=== PATIENT | female | born 1945 | race Hispanic/Latino ===

== ENCOUNTER 2018-06-08 14:18 | Inpatient (IN) | payer MEDICARE ==
--- NOTE | 2018-06-08 14:24 | Emergency Department Report ---
Blank Doc - Documentation Documentation: 73 y o female presents with an hour ago onset of left arm weakness, denies inj ury, trauma, FAST- positive for arm drift LAbs ordered
--- NOTE | 2018-06-08 14:44 | Cat Scan Report ---
CT HEAD WITHOUT CONTRAST: HISTORY: Stroke symptoms. TECHNIQUE: Sequential 2.5mm CT images. COMPARISON: none. FINDINGS: Cerebral Parenchyma: There is a 1.8 x 1.0 cm ovoid area of diminished attenuation in the right anterior basal ganglia on image 31, series 2. This could represent a subacute focus of ischemia. Minimal nonspecific chronic white matter changes are identified. The remaining brain parenchyma is within normal limits. Cerebellum: Within normal limits. Brainstem: Within normal limits. Ventricles: Normal. Sella: Normal. Extra-axial spaces: Normal. Basal Cisterns: Normal. Intracranial Hemorrhage: None. Midline Shift: None. Calvarium: Normal. Sinuses: Normal. Mastoid Air Cells: Normal. Visualized Orbits: Normal. IMPRESSION: 1.8 x 1.0 cm area of diminished attenuation in the right anterior basal ganglia concerning for subacute ischemia. No evidence for hemorrhage or mass effect. Minimal nonspecific chronic white matter changes. These findings were discussed with Dr. Dove in the emergency department at 1439 hrs.
--- NOTE | 2018-06-08 14:44 | Emergency Department Report ---
ED Neuro Deficit HPI - General Chief Complaint: Neuro Symptoms/Deficit Stated Complaint: SLURRED SPEECH/NUMBNESS IN LFT HAND Time Seen by Provider: 06/08/18 14:20 Source: patient Mode of arrival: Ambulatory Limitations: No Limitations - History of Present Illness Initial Comments: 73-year-old female with history of hypertension, COPD, past history of breast cancer presents to ED with possible stroke. Daughter states she spoke with the patient had 10 AM and patient seemed to have slurred speech, although patient denies this. Daughter went to the patient's home, states speech has now improved, however patient had left hand weakness and was unable to production sorter anything with her left hand. Left hand weakness began at approximately 1:30 PM, and has now resolved. Patient denies headache, numbness or tingling. -: This morning Location: speech, left arm Presenting Symptoms: Present: Weak/Paralyzed One Side, Unable to Speak Clearly History of same: No Place: home Severity: mild Associated Symptoms: cough. denies: confusion, chest pain, fever/chills, headaches Treatments Prior to Arrival: none - Related Data Allergies/Adverse Reactions: Allergies Allergy/AdvReac Type Severity Reaction Status Date / Time No Known Allergies Allergy Unverified 06/08/18 14:24 ED Review of Systems ROS: Stated complaint: SLURRED SPEECH/NUMBNESS IN LFT HAND Other details as noted in HPI Comment: All other systems reviewed and negative Neurological: weakness. denies: headache ED Neuro Physical Exam - General Limitations: No Limitations General appearance: alert, in no apparent distress Suspected Stroke: Yes - Head Head exam: Present: atraumatic, normocephalic - Eye Eye exam: Present: normal appearance, PERRL, EOMI - ENT ENT exam: Present: mucous membranes moist - Neck Neck exam: Present: normal inspection - Respiratory Respiratory exam: Present: normal lung sounds bilaterally. Absent: respiratory distress - Cardiovascular Cardiovascular Exam: Present: regular rate, normal rhythm - GI/Abdominal GI/Abdominal exam: Present: soft. Absent: distended, tenderness - Extremities Exam Extremities exam: Present: normal inspection - Neurological Exam Neurological exam: Present: alert, oriented X3, CN II-XII intact. Absent: motor sensory deficit - NIHSS Assessment Interval: Baseline 1a. Level of Consciousness: alert/keenly responsive 1b. LOC Questions: answers both correctly 1c. LOC Commands: performs tasks correctly 2. Best Gaze: normal 3. Visual: no visual loss 4. Facial Palsy: normal symmetrical movement 5b. Motor Arm Right: no drift 5a. Motor Arm Left: no drift 6a. Motor Leg Left: no drift 6b. Motor Leg Right: no drift 7. Limb Ataxia: absent 8. Sensory: normal 9. Best Language: no aphasia 10. Dysarthria: normal 11. Extinction/Inattention: no abnormality Total Score: 0 Stroke Severity: No Stroke Symptoms - Psychiatric Psychiatric exam: Present: normal affect, normal mood - Skin Skin exam: Present: warm, dry, intact, normal color - Lab Data Result diagrams: 06/08/18 14:35 Lab Results 06/08/18 06/08/18 06/08/18 Range/Units 14:35 14:35 14:35 WBC 7.7 (4.5-11.0) K/mm3 RBC 5.10 H (3.65-5.03) M/mm3 Hgb 15.1 H (10.1-14.3) gm/dl Hct 45.6 H (30.3-42.9) % MCV 90 (79-97) fl MCH 30 (28-32) pg MCHC 33 (30-34) % RDW 14.1 (13.2-15.2) % Plt Count 252 (140-440) K/mm3 Lymph % (Auto) 32.5 (13.4-35.0) % [place] % (Auto) 9.3 H (0.0-7.3) % Eos % (Auto) 3.7 (0.0-4.3) % Baso % (Auto) 1.1 (0.0-1.8) % Lymph # 2.5 (1.2-5.4) K/mm3 [place] # 0.7 (0.0-0.8) K/mm3 Eos # 0.3 (0.0-0.4) K/mm3 Baso # 0.1 (0.0-0.1) K/mm3 Seg Neutrophils % 53.4 (40.0-70.0) % Seg Neutrophils # 4.1 (1.8-7.7) K/mm3 PT 12.7 (12.2-14.9) Sec. INR 0.90 (0.87-1.13) APTT 28.9 (24.2-36.6) Sec. Thrombin Time 16.1 (15.1-19.6) Sec. Total Creatine Kinase 51 (30-135) units/L CK-MB (CK-2) 3.1 (0.0-4.0) ng/mL CK-MB (CK-2) Rel Index 6.0 H (0-4) Troponin T < 0.010 (0.00-0.029) ng/mL - EKG Data -: EKG Interpreted by Me EKG shows normal: sinus rhythm, intervals, ST-T waves Rate: normal Interpretation: no acute changes, other (RBBB) - Radiology Data Radiology results: report reviewed - Medical Decision Making 73-year-old female with slurred speech and left hand weakness that began earlier today. Those symptoms have now resolved. NIHSS score of 0, pt not a candidate for tPA. CT shows possible right basal ganglia subacute infarct. Remainder of workup unremarkable. Will admit to hospitalist, Dr Diaz, for further evaluation. - Differential Diagnosis TIA, CVA, brain mass - Thrombolytic Inclusion/Exclusion Thrombolytic Contraindications: Rapidily Improving s/s Critical Care Time: Yes Critical care time in (mins) excluding proc time.: 35 Critical care attestation.: If time is entered above; I have spent that time in minutes in the direct care of this critically ill patient, excluding procedure time. Critical Care Time: 35 minutes ED Disposition Clinical Impression: Stroke Qualifiers: CVA mechanism: unspecified Qualified Code(s): I63.9 - Cerebral infarction, unspecified Disposition: DC-09 OP ADMIT IP TO THIS HOSP Is pt being admited?: Yes Condition: Stable Additional Instructions: [facility] Consult Services Impression: Stroke Differential Diagnosis: 1. Cardioembolic stroke 2. Small vessel disease/lacune 3. Thromboembolic, [id number] mechanism 4. Hypercoagulable state-related infarct 5. Thrombotic mechanism, large artery disease 6. Transient ischemic attack Comments: Last known well: 2129 Door time:1418 [employer] contacted: 1423 [employer] at bedside: 1438 NIHSS assessment time:1442 Needle time:TPA not considered since she is out of the TPA window Thrombectomy not considered since large proximal intracranial vessel occlusion is not suspected Discussion: Our recommendations are outlined below. Recommendations: ASA, IV fluids and permissive hypertension (Keep BP < 220/110) Neurochecks PT/OT/ST DVT prophylaxis Follow up with Neurology for further testing/evaluation Medical Decision Making: - Extensive number of diagnosis or management options are considered above. - Extensive amount of complex data reviewed. - High risk of complication and/or morbidity or mortality are associated with differential diagnostic considerations above. - There may be uncertain outcome and increased probability of prolonged functional impairment or high probability of severe prolonged functional impairment associated with some of these differential diagnosis. Medical Data Reviewed: 1.Data reviewed include clinical labs, radiology, Medical Tests; 2.Tests results discussed w/performing or interpreting physician; 3.Obtaining/reviewing old medical records; 4.Obtaining case history from another source; 5.Independent review of image, tracing or specimen. Time of Disposition: 15:13
--- NOTE | 2018-06-08 14:49 | Emergency Department Report ---
ED Neuro Deficit HPI - General Chief Complaint: Neuro Symptoms/Deficit Stated Complaint: SLURRED SPEECH/NUMBNESS IN LFT HAND Time Seen by Provider: 06/08/18 14:20 Source: patient Mode of arrival: Ambulatory Limitations: No Limitations - History of Present Illness Initial Comments: 73 y/o woman with h/o HTN and COPD who presents with slurred speech and left hand weakness. Last known well at 0 as per daughter at bedside. CT head reviewed and case discsussed with ED staff. Now NIHSS 0 Location: speech, left arm History of same: No Place: home Severity: mild - Related Data Allergies/Adverse Reactions: Allergies Allergy/AdvReac Type Severity Reaction Status Date / Time No Known Allergies Allergy Unverified 06/08/18 14:24 ED Review of Systems ROS: Stated complaint: SLURRED SPEECH/NUMBNESS IN LFT HAND Other details as noted in HPI ED Neuro Physical Exam - General Limitations: No Limitations Suspected Stroke: Yes - Neurological Exam Neurological exam: Present: alert - NIHSS Assessment Interval: Baseline 1a. Level of Consciousness: alert/keenly responsive 1b. LOC Questions: answers both correctly 1c. LOC Commands: performs tasks correctly 2. Best Gaze: normal 3. Visual: no visual loss 4. Facial Palsy: normal symmetrical movement 5b. Motor Arm Right: no drift 5a. Motor Arm Left: no drift 6a. Motor Leg Left: no drift 6b. Motor Leg Right: no drift 7. Limb Ataxia: absent 8. Sensory: normal 9. Best Language: no aphasia 10. Dysarthria: normal 11. Extinction/Inattention: no abnormality Total Score: 0 Stroke Severity: No Stroke Symptoms Critical care attestation.: If time is entered above; I have spent that time in minutes in the direct care of this critically ill patient, excluding procedure time. ED Disposition Clinical Impression: TIA (transient ischemic attack) Stroke Qualifiers: CVA mechanism: unspecified Qualified Code(s): I63.9 - Cerebral infarction, unspecified Disposition: DC-09 OP ADMIT IP TO THIS HOSP Is pt being admited?: Yes Does the pt Need Aspirin: Yes Condition: Stable Additional Instructions: [facility] TeleNeurology Consult Services Impression: Stroke Differential Diagnosis: 1. Cardioembolic stroke 2. Small vessel disease/lacune 3. Thromboembolic, [id number] mechanism 4. Hypercoagulable state-related infarct 5. Thrombotic mechanism, large artery disease 6. Transient ischemic attack Comments: Last known well: 2129 Door time:1418 [employer] contacted: 1423 [facility] at bedside: 1438 NIHSS assessment time:1442 Needle time:TPA not considered since she is out of the TPA window Thrombectomy not considered since large proximal intracranial vessel occlusion is not suspected Discussion: Our recommendations are outlined below. Recommendations: ASA, IV fluids and permissive hypertension (Keep BP < 220/110) Neurochecks PT/OT/ST DVT prophylaxis Follow up with Neurology for further testing/evaluation Medical Decision Making: - Extensive number of diagnosis or management options are considered above. - Extensive amount of complex data reviewed. - High risk of complication and/or morbidity or mortality are associated with differential diagnostic considerations above. - There may be uncertain outcome and increased probability of prolonged functional impairment or high probability of severe prolonged functional impairment associated with some of these differential diagnosis. Medical Data Reviewed: 1.Data reviewed include clinical labs, radiology, Medical Tests; 2.Tests results discussed w/performing or interpreting physician; 3.Obtaining/reviewing old medical records; 4.Obtaining case history from another source; 5.Independent review of image, tracing or specimen.
[2018-06-08 14:51] LABS: Basophils # (Auto) 0.1 K/mm3 (0.0-0.1); Basophils % (Auto) 1.1 % (0.0-1.8); Eosinophils # (Auto) 0.3 K/mm3 (0.0-0.4); Eosinophils % (Auto) 3.7 % (0.0-4.3); Hematocrit 45.6 % (30.3-42.9); Hemoglobin 15.1 gm/dl (10.1-14.3); Lymphocytes # (Auto) 2.5 K/mm3 (1.2-5.4); Lymphocytes % (Auto) 32.5 % (13.4-35.0); Mean Corpuscular HGB Conc 33 % (30-34); Mean Corpuscular Volume 90 fl (79-97); Monocytes # (Auto) 0.7 K/mm3 (0.0-0.8); Monocytes % (Auto) 9.3 % (0.0-7.3); Platelet Count 252 K/mm3 (140-440); Red Cell Distribution Width 14.1 % (13.2-15.2)
[2018-06-08 15:01] LABS: INR 0.9 (0.87-1.13)
[2018-06-08 15:02] LABS: Partial Thromboplastin Time 28.9 Sec. (24.2-36.6); Thrombin Time 16.1 Sec. (15.1-19.6)
[2018-06-08] MEDS ORDERED: ASPIRIN PO ONE (15:11)
[2018-06-08] MEDS ORDERED: TYLENOL PO PRN (15:21)
[2018-06-08] MEDS ORDERED: REGLAN PO PRN (15:21)
[2018-06-08] MEDS ORDERED: MILK OF MAGNESIA PO PRN (15:21)
[2018-06-08] MEDS ORDERED: DULCOLAX PR PRN (15:21)
[2018-06-08] MEDS ORDERED: ZOFRAN IV PRN (15:21)
[2018-06-08] MEDS ORDERED: SODIUM CHLORIDE FLUSH SYRINGE 10 ML IV PRN (15:21)
[2018-06-08] MEDS ORDERED: PHENERGAN PR PRN (15:21)
--- NOTE | 2018-06-08 15:21 | History and Physical Report ---
History of Present Illness Chief complaint: I was feeling weak History of present illness: 73 YO Female with HTN, COPD, BrCa presents to ED for evaluation. Pt is resting in bed. Pt daughter provides history. As per daughter, the patient was found to have slurred speech around 1000hrs which was attributed to medication that the patient had taken earlier in the day. However; the patient was found to have Left hand weakness around 1330hrs, and was unable to hold objects in her left hand. Pt transported to [facility] via private vehicle. Pt seen and evaluated in ED and found to have symptoms consistent with CVA. A code stroke was called. Pt admitted to telemetry and initiated on CVA protocol. Teleneurology consulted, but patient deemed not a candidate for TPA. Pt denies fever, chills, vertigo, chest pain, skin rash, syncope, productive cough, heachche, or recent ill contacts. No prior admission for review. No medication listed for reconciliation at time of admission. Neurology consulted in ED. PCP: Dr. Dandre Church Past History Past Medical History: cancer, COPD, hypertension Past Surgical History: No surgical history, Other (reviewed) Social history: , lives with family Family history: hypertension Medications and Allergies Allergies Allergy/AdvReac Type Severity Reaction Status Date / Time No Known Allergies Allergy Unverified 06/08/18 14:24 Home Medications Medication Instructions Recorded Confirmed Last Taken Type ALPRAZolam [Xanax TAB] 1 mg PO TID PRN 06/08/18 06/08/18 Unknown History Triamter/Hctz 37.5-25 mg 1 tab PO QDAY 06/08/18 06/08/18 Unknown History [Maxzide-25] Zolpidem [Ambien] 10 mg PO QHS 06/08/18 06/08/18 Unknown History Review of Systems Constitutional: no weight loss, no fever, no sweats, no night sweats Ears, nose, mouth and throat: no ear pain, no ear discharge, no decreased hearing, no nasal congestion Breasts: no change in shape, no swelling, no mass Cardiovascular: no chest pain, no palpitations, no edema, no lightheadedness, no dyspnea on exertion Respiratory: no cough, no cough with sputum, no excessive sputum, no hemoptysis, no shortness of breath Gastrointestinal: no abdominal pain, no nausea, no vomiting, no diarrhea, no constipation Genitourinary Female: no pelvic pain, no flank pain, no menorrhagia, no dysuria, no urinary frequency Rectal: no pain, no incontinence, no bleeding Musculoskeletal: arm numbness/tingling, no neck stiffness, no neck pain, no shooting arm pain Integumentary: no rash, no redness, no wounds, no boils Neurological: transient paralysis, weakness, numbness, change in speech, motor disturbance, no head injury Psychiatric: no anxiety, no memory loss, no change in sleep habits, no sleep disturbances Endocrine: no cold intolerance, no heat intolerance, no polyphagia, no excessive thirst, no polydipsia Hematologic/Lymphatic: no easy bruising, no easy bleeding, no lymphadenopathy Allergic/Immunologic: no urticaria, no allergic rhinitis, no wheezing, no persistent infections Exam - Constitutional General appearance: Present: no acute distress, well-nourished - EENT Eyes: Present: PERRL ENT: hearing intact, clear oral mucosa - Neck Neck: Present: supple, normal ROM - Respiratory Respiratory effort: normal Respiratory: bilateral: CTA - Cardiovascular Heart Sounds: Present: S1 & S2. Absent: rub, click - Extremities Extremities: pulses symmetrical, No edema Peripheral Pulses: within normal limits - Abdominal General gastrointestinal: Present: soft, non-tender, non-distended, normal bowel sounds Female genitourinary: Present: normal - Integumentary Integumentary: Present: clear, warm, dry - Musculoskeletal Musculoskeletal: gait normal, strength equal bilaterally - Psychiatric Psychiatric: appropriate mood/affect, intact judgment & insight - Neurologic Neurologic: CNII-XII intact, moves all extremities Results - Labs CBC & Chem 7: 06/08/18 14:35 Labs: Abnormal lab results 06/08/18 Range/Units 14:35 RBC 5.10 H (3.65-5.03) M/mm3 Hgb 15.1 H (10.1-14.3) gm/dl Hct 45.6 H (30.3-42.9) % [place] % (Auto) 9.3 H (0.0-7.3) % Assessment and Plan - Patient Problems (1) CVA (cerebral vascular accident) Current Visit: Yes Status: Acute Qualifiers: Precerebral and cerebral artery: middle cerebral artery Laterality of affected vessel: right Plan to address problem: CVA Protocol: Admit to telemetry, CT Head, MRI Brain, MRA Brain, Echo, Carotid Doppler, PT/OT/Speech therapy, Antiplatelet therapy, lipid panel, statin therapy, Neurology consulted in ED (2) HTN (hypertension) Current Visit: Yes Status: Acute Qualifiers: Hypertension type: essential hypertension Qualified Code(s): I10 - Essential (primary) hypertension Plan to address problem: Monitor bp q shift, continue medical management, permissive hypertension overnight (3) COPD (chronic obstructive pulmonary disease) Current Visit: Yes Status: Acute Qualifiers: Emphysema type: unspecified Qualified Code(s): J43.9 - Emphysema, unspecified Plan to address problem: Supplemental oxygen, supportive care, incentive spirometry. (4) Breast cancer Current Visit: Yes Status: Acute Qualifiers: Laterality: unspecified laterality Plan to address problem: Currently in remission, supportive care, outpatient oncology F/U care. (5) DVT prophylaxis Current Visit: Yes Status: Acute Plan to address problem: SCD to BLE while in bed, prophylactic lovenox
[2018-06-08 15:25] LABS: Creatine Kinase MB 3.1 ng/mL (0.0-4.0)
--- NOTE | 2018-06-08 16:41 | Vascular Lab Report ---
PROCEDURE: VL CAROTID DUPLEX BILAT TECHNIQUE: Ultrasound of the bilateral carotid arteries. Reported ICA Stenosis % per the NASCET crite flip. HISTORY: stroke COMPARISONS: None FINDINGS: PLAQUE DISTRIBUTION: There are heterogeneous shadowing calcified plaques present bilaterally. Finding s are most significant in the left external carotid artery and at the left carotid bifurcation. On the right, there is focal moderate plaque formation in the right proximal internal carotid artery bifurcation VELOCITIES: RIGHT ICA peak systolic velocity (cm/sec): 115 ICA end diastolic velocity (cm/sec): 31 CCA peak systolic velocity (cm/sec): 90 ECA peak systolic velocity (cm/sec): 87 ICA/CCA systolic velocity ratio (cm/sec): 1.28 Right vertebral: Antegrade ICA STENOSIS ESTIMATION: < 50 % LEFT ICA peak systolic velocity (cm/sec): 333 ICA end diastolic velocity (cm/sec): 100 CCA peak systolic velocity (cm/sec): 72 ECA peak systolic velocity (cm/sec): 355 ICA/CCA systolic velocity ratio (cm/sec): 4.62 Left vertebral: Antegrade ICA STENOSIS ESTIMATION: 80-99 % IMPRESSION: Clinically significant stenosis identified in the left carotid system. ICA Stenosis % per the NASCET criteria is < 50 % on the right and 80-99 % on the left. This document is electronically signed by Latha Gutierrez MD., June 08 2018 04:39:47 PM ET
[2018-06-08] MEDS ORDERED: ASPIRIN ONE (17:50)
[2018-06-09] MEDS ORDERED: XANAX PO PRN (04:15)
[2018-06-09] MEDS ORDERED: ASPIRIN PO SCH (10:00)
[2018-06-09] MEDS ORDERED: MAXZIDE-25 PO SCH (10:00)
[2018-06-09 10:36] LABS: BUN/Creatinine Ratio 34; Blood Urea Nitrogen 17 mg/dL (7-17); Calcium 8.9 mg/dL (8.4-10.2); Hemolysis Index 13
[2018-06-09 10:40] LABS: Chol/HDL Ratio 5.02 %
--- NOTE | 2018-06-09 14:11 | Magnetic Resonance Report ---
PROCEDURE: MR BRAIN WO CON TECHNIQUE: Magnetic resonance imaging of the brain was performed without contrast material. COMPARISONS: None currently available. FINDINGS: Punctate restricted diffusion in the right frontoparietal lobe on series 3:24. T2/FLAIR hyperintensities in the periventricular and subcortical white matter are nonspecific. Differ ential diagnosis includes migraines, microvascular ischemic disease, demyelinating process, encephali tis/encephalopathy, and trauma. Midline structures are unremarkable. There is no tonsillar ectopy. Age appropriate hairston-white matter differentiation is noted. There is no hydrocephalus. There is no mass. There is no hemorrhage. There is no midline shift. The CP angles are grossly noted. Major flow voids are present. Paranasal sinuses are unremarkable. Globes are intact. Calvarial signal characteristics are grossly unremarkable. Extracranial soft tissues are intact. IMPRESSION: * Punctate acute infarct in the right frontal parietal lobe. * Chronic ischemic disease. * 06/09/2018 at 1108 PT: I, Scot Hassan MD, discussed the findings over the phone with Imani Corona RN. This document is electronically signed by Scot Hassan MD., June 09 2018 02:08:45 PM ET
--- NOTE | 2018-06-09 14:29 | Progress Note ---
Hospitalist Physical - Constitutional Vitals: Temp Pulse Resp BP Pulse Ox 97.6 F 89 18 131/71 95 06/09/18 08:16 06/09/18 05:27 06/09/18 08:16 06/09/18 08:16 06/09/18 05:27 General appearance: Present: no acute distress, well-nourished Results - Labs CBC & Chem 7: 06/08/18 14:35 06/09/18 10:07 Labs: Laboratory Last Values WBC 7.7 K/mm3 (4.5-11.0) 06/08/18 14:35 RBC 5.10 M/mm3 (3.65-5.03) H 06/08/18 14:35 Hgb 15.1 gm/dl (10.1-14.3) H 06/08/18 14:35 Hct 45.6 % (30.3-42.9) H 06/08/18 14:35 MCV 90 fl (79-97) 06/08/18 14:35 MCH 30 pg (28-32) 06/08/18 14:35 MCHC 33 % (30-34) 06/08/18 14:35 RDW 14.1 % (13.2-15.2) 06/08/18 14:35 Plt Count 252 K/mm3 (140-440) 06/08/18 14:35 Lymph % (Auto) 32.5 % (13.4-35.0) 06/08/18 14:35 [place] % (Auto) 9.3 % (0.0-7.3) H 06/08/18 14:35 Eos % (Auto) 3.7 % (0.0-4.3) 06/08/18 14:35 Baso % (Auto) 1.1 % (0.0-1.8) 06/08/18 14:35 Lymph # 2.5 K/mm3 (1.2-5.4) 06/08/18 14:35 [place] # 0.7 K/mm3 (0.0-0.8) 06/08/18 14:35 Eos # 0.3 K/mm3 (0.0-0.4) 06/08/18 14:35 Baso # 0.1 K/mm3 (0.0-0.1) 06/08/18 14:35 Seg Neutrophils % 53.4 % (40.0-70.0) 06/08/18 14:35 Seg Neutrophils # 4.1 K/mm3 (1.8-7.7) 06/08/18 14:35 PT 12.7 Sec. (12.2-14.9) 06/08/18 14:35 INR 0.90 (0.87-1.13) 06/08/18 14:35 APTT 28.9 Sec. (24.2-36.6) 06/08/18 14:35 Thrombin Time 16.1 Sec. (15.1-19.6) 06/08/18 14:35 Sodium 141 mmol/L (137-145) 06/09/18 10:07 Potassium 3.8 mmol/L (3.6-5.0) 06/09/18 10:07 Chloride 99.2 mmol/L (98-107) 06/09/18 10:07 Carbon Dioxide 30 mmol/L (22-30) 06/09/18 10:07 Anion Gap 16 mmol/L 06/09/18 10:07 BUN 17 mg/dL (7-17) 06/09/18 10:07 Creatinine 0.5 mg/dL (0.7-1.2) L 06/09/18 10:07 Estimated GFR > 60 ml/min 06/09/18 10:07 BUN/Creatinine Ratio 34 % 06/09/18 10:07 Glucose 101 mg/dL (65-100) H 06/09/18 10:07 Calcium 8.9 mg/dL (8.4-10.2) 06/09/18 10:07 Total Creatine Kinase 51 units/L (30-135) 06/08/18 14:35 CK-MB (CK-2) 3.1 ng/mL (0.0-4.0) 06/08/18 14:35 CK-MB (CK-2) Rel Index 6.0 (0-4) H 06/08/18 14:35 Troponin T < 0.010 ng/mL (0.00-0.029) 06/08/18 14:35 Triglycerides 168 mg/dL (2-149) H 06/09/18 10:07 Cholesterol 221 mg/dL (50-199) H 06/09/18 10:07 LDL Cholesterol Direct 171 mg/dL (50-130) H 06/09/18 10:07 HDL Cholesterol 44 mg/dL (40-59) 06/09/18 10:07 Cholesterol/HDL Ratio 5.02 % 06/09/18 10:07 Active Medications - Current Medications Current Medications: Generic Name Dose Route Start Last Admin Trade Name Freq PRN Reason Stop Dose Admin Acetaminophen 650 mg 06/08/18 15:21 Tylenol PO Q4H PRN Pain, Mild (1-3) Alprazolam 1 mg 06/09/18 04:15 Xanax PO TID PRN Anxiety Aspirin 325 mg 06/09/18 10:00 06/09/18 11:01 Aspirin PO 325 mg QDAY ALAN Administration Atorvastatin Calcium 40 mg 06/08/18 22:00 06/08/18 22:51 Lipitor PO 40 mg QHS [facility] Administration Bisacodyl 10 mg 06/08/18 15:21 Dulcolax CO QDAY PRN Constipation Enoxaparin Sodium 40 mg 06/09/18 22:00 Lovenox SUB-Q QDAY@2200 [facility] Magnesium Hydroxide 30 ml 06/08/18 15:21 Milk Of Magnesia PO Q4H PRN Constipation Metoclopramide HCl 10 mg 06/08/18 15:21 Reglan PO Q6H PRN Nausea And Vomiting Ondansetron HCl 4 mg 06/08/18 15:21 Zofran IV Q8H PRN Nausea And Vomiting Promethazine HCl 25 mg 06/08/18 15:21 Phenergan CO Q6H PRN Nausea And Vomiting Sodium Chloride 10 ml 06/08/18 15:21 Sodium Chloride Flush Syringe 10 Ml IV PRN PRN LINE FLUSH Triamterene/HCTZ 1 each 06/09/18 10:00 06/09/18 11:01 Maxzide-25 PO 1 each QDAY ALAN Administration Zolpidem Tartrate 10 mg 06/09/18 22:00 Ambien PO QHS [facility]
--- NOTE | 2018-06-09 18:31 | Discharge Summary ---
Providers - Providers Date of Admission: 06/08/18 15:21 Date of discharge: 06/09/18 Attending physician: TYREE MELO 06/08/18 15:21 Occupational Therapy Evaluate and Treat [CONS] Routine Comment: Reason For Exam: Neuro deficits Physical Therapy Evaluation and Treat [CONS] Routine Comment: Reason For Exam: Neuro deficits 06/08/18 15:24 Speech Therapy Evaluation and Treat [CONS] Routine Reason For Exam: swallow eval 06/08/18 15:26 Consult to Physician [CONS] Routine Comment: Consulting Provider: ELISE KAUR Physician Instructions: Reason For Exam: cva Primary care physician: RC HUBER Hospitalization Condition: Fair Hospital course: Patient is 73 yo with hypertension, tobacco use , COPD and history of breast cancer. She presented to Ed with slurred speech, left sided weakness. She was seen and evaluated in ED and found to have symptoms consistent with acute stroke. A code stroke was called. CT head revealed right basal ganglia ischemic stroke. Pt admitted to telemetry and initiated on CVA protocol. Teleneurology consulted, but patient deemed not a candidate for TPA. She was given Aspirin adm itted. MRI also showed acute infarct right frontal and parietal lobe. left sided weakness improved, she was seen by Physical therapy and discharged home on 06/09/18. Disposition: DC-01 TO HOME OR SELFCARE - Discharge Diagnoses (1) COPD (chronic obstructive pulmonary disease) Status: Acute Qualifiers: Emphysema type: unspecified Qualified Code(s): J43.9 - Emphysema, unspecified (2) CVA (cerebral vascular accident) Status: Acute Qualifiers: Precerebral and cerebral artery: middle cerebral artery Laterality of affected vessel: right (3) HTN (hypertension) Status: Acute Qualifiers: Hypertension type: essential hypertension Qualified Code(s): I10 - Essential (primary) hypertension (4) Hypertension Status: Acute Core Measure Documentation - Palliative Care Palliative Care/ Comfort Measures: Not Applicable - Core Measures Any of the following diagnoses?: stroke - Stroke Discharge Requirements Statin for LDL = or >70 mg/dl on DC: Yes Anticoag for atrial fib/atrial flutter: Not Applicable Antithrombotic for ischemic stroke: Yes Exam - Constitutional Vitals: Temp Pulse Resp BP Pulse Ox 98.0 F 102 H 18 122/55 96 06/09/18 16:20 06/09/18 12:00 06/09/18 16:20 06/09/18 16:20 06/09/18 10:00 Plan Activity: advance as tolerated Diet: low fat, low cholesterol, low salt Additional Instructions: 1.Folow up with Dr. Huber in 3-5 days Follow up with: RC HUBER MD [Primary Care Provider] - 7 Days Prescriptions: Aspirin [Aspirin TAB] 325 mg PO QDAY #30 tablet AtorvaSTATin [Lipitor] 40 mg PO QHS #30 tablet
[2018-06-09 20:02] VITALS: BP 146/65
[2018-06-09] MEDS ORDERED: LOVENOX SUB-Q SCH (22:00)
[2018-06-09] MEDS ORDERED: AMBIEN PO SCH (22:00)
--- NOTE | 2018-06-15 16:49 | Magnetic Resonance Report ---
PROCEDURE: MRA of the brain TECHNIQUE: Axial 3-D [id number] MR angiography of the [place] and brain was performed. The source images were reconstructed in various views using maximum intensity projection. HISTORY: stroke COMPARISONS: None . FINDINGS: Visualized vertebral arteries showed dominant left vertebral artery, normal variant. Visualized internal carotid arteries appear widely patent. Carotid siphons are patent. The A1 segment s and anterior cerebral arteries as well as the right and left middle cerebral arteries appear widely patent. No high-grade stenosis or occlusion is visualized. No changes are seen to suggest an aneurys m or vascular malformation. IMPRESSION: Anterior and the posterior circulation appear intact without high-grade stenosis or occlusion. This document is electronically signed by Marquis Gregory MD., June 15 2018 04:47:07 PM ET
== END 2018-06-09 20:11 | disposition home or self-care (01) | DRG 66 ==
LOC: ED 14:18 → 4A 15:21
PROVIDERS: ADMIT Internal Medicine; ATTEND Internal Medicine
DX: I63.9 Cerebral infarction, unspecified (principal); G83.24 Monoplegia of upper limb affecting left nondominant side; I10 Essential (primary) hypertension; J44.9 Chronic obstructive pulmonary disease, unspecified; Z85.3 Personal history of malignant neoplasm of breast; Z82.49 Family history of ischemic heart disease and other diseases of the circulatory system; Z79.01 Long term (current) use of anticoagulants
CPT/HCPCS: 36415; 70450; 70544; 70551; 80048; 80061; 82550; 82553; 84484; 85025; 85610; 85670; 85730; 93005; 93010; 93306; 93880; G0378; A9270-GY

== ENCOUNTER 2018-06-12 21:34 | Inpatient (IN) | payer MEDICARE ==
--- NOTE | 2018-06-12 23:24 | Cat Scan Report ---
PROCEDURE: CT HEAD/BRAIN WO CON TECHNIQUE: Computerized tomography of the head was performed without contrast material. CT DOSE LENGTH PRODUCT: 805.4 mGycm HISTORY: left arm paresthesias, recent CVA COMPARISONS: None . FINDINGS: Skull and scalp: Normal . Paranasal sinuses: Normal . Ventricles and subarachnoid spaces: Normal . Cerebrum: Nonspecific finding of hypodensity is noted involving anterior limb right internal capsule as seen on the prior study without interval change most likely representing chronic ischemic changes. . Cerebellum and brainstem: No evidence of hemorrhage, acute infarction or mass . Vasculature: Normal . Other: None . ASPECTS: 10 IMPRESSION: No acute intracranial abnormality.. This document is electronically signed by Deon Godwin MD., June 12 2018 11:22:54 PM ET
--- NOTE | 2018-06-12 23:31 | Emergency Department Report ---
HPI - General Chief Complaint: Neuro Symptoms/Deficit Time Seen by Provider: 06/12/18 22:13 - HPI HPI: 73-year-old female presents to the emergency department with complaint of some tingling to the left arm that started around 7 PM and has improved but not yet resolved. The patient was just here and discharged 3 days ago after having a CVA. At that time the patient was having some slurred speech and some left hand weakness. She did not receive any TPA but have further workup including a brain MRI that showed an acute left frontal infarct. She also had a carotid ultrasound that showed clinically significant left carotid stenosis of about 80-90%. Patient denies any other symptoms or deficits besides the tingling sensation. She took her cholesterol medication and her aspirin this evening around 9 PM. She has a past medical history of remote breast cancer, COPD, hypertension and high cholesterol. Her primary care physician is Dr. Dandre Church. ED Past Medical Hx - Past Medical History Previous Medical History?: Yes Hx Hypertension: Yes Hx CVA: Yes Hx COPD: Yes - Surgical History Past Surgical History?: Yes - Social History Smoking Status: Current Every Day Smoker Substance Use Type: None - Medications Home Medications: Home Medications Medication Instructions Recorded Confirmed Last Taken Type ALPRAZolam [Xanax TAB] 1 mg PO TID PRN 06/08/18 06/08/18 Unknown History Triamter/Hctz 37.5-25 mg 1 tab PO QDAY 06/08/18 06/08/18 Unknown History [Maxzide-25] Zolpidem [Ambien] 10 mg PO QHS 06/08/18 06/08/18 Unknown History Aspirin [Aspirin TAB] 325 mg PO QDAY #30 tablet 06/09/18 Unknown Rx AtorvaSTATin [Lipitor] 40 mg PO QHS #30 tablet 06/09/18 Unknown Rx ED Review of Systems ROS: Stated complaint: LEFT ARM NUMB Other details as noted in HPI Comment: All other systems reviewed and negative Constitutional: denies: chills, fever Eyes: denies: eye pain, vision change ENT: denies: ear pain, throat pain Respiratory: denies: cough, shortness of breath Cardiovascular: denies: chest pain, palpitations Gastrointestinal: denies: abdominal pain, vomiting Genitourinary: denies: dysuria, frequency Musculoskeletal: denies: back pain, arthralgia Skin: denies: rash, lesions Neurological: paresthesias. denies: headache Physical Exam - Physical Exam Vital Signs: Vital Signs 06/12/18 06/12/18 06/12/18 21:58 22:18 22:30 Temperature 97.5 F L Pulse Rate 100 H 93 H 88 Respiratory 18 25 H 25 H Rate Blood Pressure 199/108 167/87 O2 Sat by Pulse 95 Oximetry 06/12/18 22:45 Temperature Pulse Rate 97 H Respiratory 25 H Rate Blood Pressure 188/86 O2 Sat by Pulse Oximetry Physical Exam: GENERAL: The patient is well-developed well-nourished. HEENT: Normocephalic. Atraumatic. Patient has moist mucous membranes. EYES: Extraocular motions are intact. Pupils are equal and reactive to light bilaterally. NECK: Supple. Trachea is midline. CHEST/LUNGS: Clear to auscultation. There is no respiratory distress noted. HEART/CARDIOVASCULAR: Regular. There is no tachycardia. There is no obvious murmur. ABDOMEN: Abdomen is soft, nontender. Patient has normal bowel sounds. There is no abdominal distention. SKIN: Skin is warm and dry. NEURO: The patient is awake, alert, and oriented. The patient is cooperative. The patient has no focal neurologic deficits. The patient has normal speech. Cranial nerves II through XII grossly intact. No pronator drift. No dysmetria. No facial asymmetry. MUSCULOSKELETAL: There is no tenderness or deformity. There is no limitation range of motion. There is no evidence of acute injury. ED Course Vital Signs 06/12/18 06/12/18 06/12/18 21:58 22:18 22:30 Temperature 97.5 F L Pulse Rate 100 H 93 H 88 Respiratory 18 25 H 25 H Rate Blood Pressure 199/108 167/87 O2 Sat by Pulse 95 Oximetry 06/12/18 22:45 Temperature Pulse Rate 97 H Respiratory 25 H Rate Blood Pressure 188/86 O2 Sat by Pulse Oximetry - Consultations Consultation #1: 06/13/18 00:45 I spoke with the telemedicine neurologist, Dr. Bruce, regarding the patient's new onset left-sided arm paresthesias and her recent history of CVA. We discussed the imaging studies that she had within the last week. The neurologist recommends a repeat brain MRI and therefore readmission with the new left-sided symptoms and the carotid ultrasound finding of significant stenosis. ED Medical Decision Making - Lab Data Result diagrams: 06/12/18 23:08 06/12/18 23:08 - EKG Data -: EKG Interpreted by Me EKG shows normal: sinus rhythm, axis, intervals (prolonged QTC), QRS complexes (right bundle-branch block), ST-T waves Rate: normal - EKG Data When compared to previous EKG there are: no significant change Interpretation: unchanged when compared t (06/08/18) - Radiology Data Radiology results: report reviewed PROCEDURE: CT HEAD/BRAIN WO CON TECHNIQUE: Computerized tomography of the head was performed without contrast material. CT DOSE LENGTH PRODUCT: 805.4 mGycm HISTORY: left arm paresthesias, recent CVA COMPARISONS: None . FINDINGS: Skull and scalp: Normal . Paranasal sinuses: Normal . Ventricles and subarachnoid spaces: Normal . Cerebrum: Nonspecific finding of hypodensity is noted involving anterior limb right internal capsule as seen on the prior study without interval change most likely representing chronic ischemic changes.. Cerebellum and brainstem: No evidence of hemorrhage, acute infarction or mass . Vasculature: Normal . Other: None . ASPECTS: 10 IMPRESSION: No acute intracranial abnormality.. This document is electronically signed by Lakeshia Godwin MD., June 12 2018 11:22:54 PM ET Transcribed By: [facility] Dictated By: LAKESHIA GODWIN Electronically Authenticated By: LAKESHIA GODWIN Signed Date/Time: 06/12/18 9564 - Medical Decision Making Patient presents to the emergency department with complaint of left arm tingling sensation and/or paresthesias that started around 7 PM this evening. The patient was just here for a CVA and discharged [address] today of the head without contrast does not show any bleed, shift, mass, ischemia or any other acute process. Labs are grossly unremarkable except for some mild hypokalemia that was replaced with potassium chloride. Currently the patient is 0 on the NIH stroke scale. I spoke with the telemedicine neurologist who recommends readmission and a repeat brain MRI. The patient was accepted for admission by the hospitalist, Dr. [place]. - Differential Diagnosis CVA, TIA, electrolyte abnormalities, dysrhythmia Critical Care Time: No Critical care attestation.: If time is entered above; I have spent that time in minutes in the direct care of this critically ill patient, excluding procedure time. ED Disposition Clinical Impression: History of CVA (cerebrovascular accident), Arm paresthesia, left, Tobacco use Hypertension Qualifiers: Hypertension type: essential hypertension Qualified Code(s): I10 - Essential (primary) hypertension Disposition: OP ADMIT IP TO THIS HOSP Is pt being admited?: Yes Condition: Fair Instructions: Hypertension (ED) Time of Disposition: 00:47 - Assessment Assessment Interval: Baseline - Level of Consciousness 1a. Level of Consciousness: alert/keenly responsive - LOC Questions 1b. LOC Questions: answers both correctly - LOC Command 1c. LOC Commands: performs tasks correctly - Best Gaze 2. Best Gaze: normal - Visual 3. Visual: no visual loss - Facial Palsy 4. Facial Palsy: normal symmetrical movement - Motor Arm 5a. Motor Arm Left: no drift 5b. Motor Arm Right: no drift - Motor Leg 6a. Motor Leg Left: no drift 6b. Motor Leg Right: no drift - Limb Ataxia 7. Limb Ataxia: absent - Sensory 8. Sensory: normal - Best Language 9. Best Language: no aphasia - Dysarthria 10. Dysarthria: normal - Extinction and Inattention 11. Extinction/Inattention: no abnormality - Scoring Total Score: 0 Stroke Severity: No Stroke Symptoms
[2018-06-12 23:35] LABS: Basophils # (Auto) 0.1 K/mm3 (0.0-0.1); Basophils % (Auto) 0.8 % (0.0-1.8); Eosinophils # (Auto) 0.2 K/mm3 (0.0-0.4); Eosinophils % (Auto) 2.6 % (0.0-4.3); Hematocrit 45.5 % (30.3-42.9); Hemoglobin 15.8 gm/dl (10.1-14.3); Lymphocytes % (Auto) 32.5 % (13.4-35.0); Mean Corpuscular HGB Conc 35 % (30-34); Mean Corpuscular Volume 90 fl (79-97); Monocytes # (Auto) 0.7 K/mm3 (0.0-0.8); Monocytes % (Auto) 7.8 % (0.0-7.3); Platelet Count 268 K/mm3 (140-440); Red Blood Count 5.09 M/mm3 (3.65-5.03); Red Cell Distribution Width 13.4 % (13.2-15.2)
[2018-06-12 23:52] LABS: BUN/Creatinine Ratio 20; Blood Urea Nitrogen 14 mg/dL (7-17); Calcium 9.5 mg/dL (8.4-10.2); Hemolysis Index 12
[2018-06-12] MEDS ORDERED: K-DUR PO ONE (23:54)
[2018-06-12] MEDS ORDERED: LOPRESSOR IV ONE (23:54)
[2018-06-13] MEDS ORDERED: K-DUR PO ONE (00:33)
[2018-06-13] MEDS ORDERED: ZOFRAN IV PRN (00:41)
[2018-06-13] MEDS ORDERED: MILK OF MAGNESIA PO PRN (00:41)
[2018-06-13] MEDS ORDERED: TYLENOL PO PRN (00:41)
[2018-06-13] MEDS ORDERED: DULCOLAX PR PRN (00:41)
[2018-06-13] MEDS ORDERED: SODIUM CHLORIDE FLUSH SYRINGE 10 ML IV PRN (00:41)
--- NOTE | 2018-06-13 00:41 | History and Physical Report ---
History of Present Illness Date of examination: 06/13/18 History of present illness: 73-year-old woman with a history of hypertension, COPD, breast cancer, recently diagnosed with CVA and was discharged from the hospital on June 09May, return to the emergency room today complaining of left upper extremity numbness Review of systems Constitutional: no weight loss, chills, fever Ears, eyes, nose, mouth and throat: no nasal congestion, no nasal discharge, no sinus pressure, no vision change, no red eye. Neck: No neck pain or rigidity. Cardiovascular: no chest pain, palpitations Respiratory: no cough, shortness of breath Gastrointestinal no abdominal pain, hemotochezia Genitourinary : no frequency , no hematuria Musculoskeletal: no joint swelling or muscle ache Integumentary: no rash, no pruritis Neurological: nono focal weakness Endocrine: no cold or heat intolerance, no polyuria or polydipsia Hematologic/Lymphatic: no easy bruising, no easy bleeding, no gland swelling Allergic/Immunologic: no urticaria, no angioedema. PAST MEDICAL HISTORY: hypertension, COPD, breast cancer, CVA PAST SURGICAL HISTORY: Bilateral mastectomy with reconstruction SOCIAL HISTORY: Denies alcohol, +tobacco, NO drugs FAMILY HISTORY: Hypertension Medications and Allergies Allergies Allergy/AdvReac Type Severity Reaction Status Date / Time No Known Allergies Allergy Unverified 06/08/18 14:24 Home Medications Medication Instructions Recorded Confirmed Last Taken Type ALPRAZolam [Xanax TAB] 1 mg PO TID PRN 06/08/18 06/13/18 1 Day Ago History ~06/12/18 Triamter/Hctz 37.5-25 mg 1 tab PO QDAY 06/08/18 06/13/18 1 Day Ago History [Maxzide-25] ~06/12/18 Zolpidem [Ambien] 10 mg PO QHS 06/08/18 06/13/18 06/13/18 02:00 History Aspirin [Aspirin TAB] 325 mg PO QDAY #30 tablet 06/09/18 06/13/18 1 Day Ago Rx ~06/12/18 AtorvaSTATin [Lipitor] 40 mg PO QHS #30 tablet 06/09/18 06/13/18 1 Day Ago Rx ~06/12/18 Cimetidine [Tagamet Hb] 400 mg PO PRN 06/13/18 06/13/18 2 Weeks Ago History ~05/30/18 Exam - Physical Exam Narrative exam: Gen. appearance: Patient lying in bed, no apparent distress HEENT: Normocephalic, atraumatic, pupils equally round and reactive to light, extraocular movement intact, and no sclericterus,. No JVD or thyromegaly or nodule,neck supple, no carotid bruit ,mucous membranes moist, no exudate or e rythema Heart: S1, S2, regular rate and rhythm Lungs: Clear bilaterally, breathing comfortable Abdomen: Positive bowel sounds, non-tender, nondistended, no organomegaly Extremity:no edema cyanosis, clubbing Skin: no rash, dry, warm Neuro: Oriented 3, cranial nerves II-12 intact, speech is fluent, motor intact, decrease sensation of LUE - Constitutional Vitals: Temp Pulse Resp BP Pulse Ox 97.5 F L 91 H 25 H 145/71 95 06/12/18 21:58 06/13/18 00:36 06/12/18 22:45 06/13/18 00:36 06/12/18 21:58 Results - Labs CBC & Chem 7: 06/12/18 23:08 06/12/18 23:08 Labs: Abnormal lab results 06/12/18 06/12/18 Range/Units 23:08 23:08 RBC 5.09 H (3.65-5.03) M/mm3 Hgb 15.8 H (10.1-14.3) gm/dl Hct 45.5 H (30.3-42.9) % MCHC 35 H (30-34) % [place] % (Auto) 7.8 H (0.0-7.3) % Potassium 3.4 L (3.6-5.0) mmol/L Glucose 101 H (65-100) mg/dL - Imaging and Cardiology CT Scan - head: report reviewed Assessment and Plan Assessment Acute CVA Hypertension COPD Plan Admit to medicine obtain MRI of the head MRA was recently done however it has not been read Will not repeat echo Start Plavix, statin, IV hydralazine for blood pressure control [employer] neurology, PT, OT DVT prophylaxis
[2018-06-13] MEDS ORDERED: PLAVIX PO ONE (00:45)
[2018-06-13] MEDS ORDERED: APRESOLINE IV PRN (00:45)
[2018-06-13] MEDS: XANAX PO PRN ×2 (01:59→21:06)
[2018-06-13] MEDS: LOVENOX SUB-Q SCH (11:48)
[2018-06-13] MEDS: PLAVIX PO SCH (11:48)
[2018-06-13] MEDS ORDERED: PNEUMOVAX 23 IM ONE (12:00)
--- NOTE | 2018-06-13 12:02 | Consultation ---
History of Present Illness - Reason for Consult Consult date: 06/13/18 carotid stenosis - History of Present Illness Ms. Ugalde is a 73-year-old female known to our practice who presented several days ago with left forearm numbness and tingling after an episode of slurred speech witnessed by family members. She made a complete recovery was found to have a right frontal parietal punctate infarct on MRI. Carotid duplex scan was performed which suggested a high-grade left carotid stenosis and she was begun on aspirin 25 mg and was discharged home from the hospital. He subsequently sustained another episode of left arm numbness which ultimately resolved and she returned to the hospital. Because of the concern of a repeat stroke she was admitted to the hospital and we will consult. He denies any other focal neurological events prior to these 2 episodes. She states she feels her normal self and is anxious to come to a decision on what needs to be done. Past History Past Medical History: cancer (breast), COPD, hypertension, hyperlipidemia, stroke Past Surgical History: mastectomy Social history: , smoking Family history: hypertension Medications and Allergies Allergies Allergy/AdvReac Type Severity Reaction Status Date / Time No Known Allergies Allergy Unverified 06/08/18 14:24 Home Medications Medication Instructions Recorded Confirmed Last Taken Type ALPRAZolam [Xanax TAB] 1 mg PO TID PRN 06/08/18 06/13/18 1 Day Ago History ~06/12/18 Triamter/Hctz 37.5-25 mg 1 tab PO QDAY 06/08/18 06/13/18 1 Day Ago History [Maxzide-25] ~06/12/18 Zolpidem [Ambien] 10 mg PO QHS 06/08/18 06/13/18 06/13/18 02:00 History Aspirin [Aspirin TAB] 325 mg PO QDAY #30 tablet 06/09/18 06/13/18 1 Day Ago Rx ~06/12/18 AtorvaSTATin [Lipitor] 40 mg PO QHS #30 tablet 06/09/18 06/13/18 1 Day Ago Rx ~06/12/18 Cimetidine [Tagamet Hb] 400 mg PO PRN 06/13/18 06/13/18 2 Weeks Ago History ~05/30/18 Active Meds: Active Medications Acetaminophen (Tylenol) 650 mg PO Q4H PRN PRN Reason: Pain, Mild (1-3) Alprazolam (Xanax) 1 mg PO TID PRN PRN Reason: Anxiety Last Admin: 06/13/18 01:59 Dose: 1 mg Documented by: Atorvastatin Calcium (Lipitor) 40 mg PO QHS [facility] Bisacodyl (Dulcolax) 10 mg MT QDAY PRN PRN Reason: Constipation Clopidogrel Bisulfate (Plavix) 75 mg PO DAILY [facility] Last Admin: 06/13/18 11:48 Dose: 75 mg Documented by: Enoxaparin Sodium (Lovenox) 30 mg SUB-Q QDAY [facility] Last Admin: 06/13/18 11:48 Dose: 30 mg Documented by: Hydralazine HCl (Apresoline) 5 mg IV Q6H PRN PRN Reason: Hypertension Magnesium Hydroxide (Milk Of Magnesia) 30 ml PO Q4H PRN PRN Reason: Constipation Ondansetron HCl (Zofran) 4 mg IV Q8H PRN PRN Reason: Nausea And Vomiting Pneumococcal Polyvalent Vaccine (Pneumovax 23) 0.5 ml IM .ONCE ONE Stop: 06/13/18 12:01 Sodium Chloride (Sodium Chloride Flush Syringe 10 Ml) 10 ml IV PRN PRN PRN Reason: LINE FLUSH Review of Systems Constitutional: weight loss Ears, nose, mouth and throat: dysphagia Breasts: other (bilateral mastectomy) Cardiovascular: chest pain, rapid/irregular heart beat, high blood pressure Respiratory: cough, dyspnea on exertion, congestion, wheezing Neurological: parathesias, numbness, tingling (left arm episode of hand weakness which is resolved) Exam - Physical Exam Narrative exam: She is alert and oriented 73-year-old female in no acute distress. HEENT examination reveals anicteric sclerae. Mucous membranes are moist. Dentition good. Chest reveals bilateral mastectomy incisions. Lungs reveal expiratory wheezes and occasional crackle with SP nonproductive cough. Cardiac examination is regular rate and rhythm no murmurs or gallops. Abdomen is slightly protuberant without abdominal masses or hepatosplenomegaly. Femoral popliteal pedal pulses are normal. Upper extremity pulses suggest minor weakness of the left radial otherwise normal. She has bilateral carotid bruits the left side somewhat blowing. Motor appears to be intact bilaterally and I can detect no obvious neurological deficits. - Constitutional Vitals: Temp Pulse Resp BP Pulse Ox 97.4 F L 82 16 113/51 93 06/13/18 08:31 06/13/18 09:07 06/13/18 08:31 06/13/18 08:31 06/13/18 08:31 Results - Labs CBC & Chem 7: 06/12/18 23:08 06/12/18 23:08 Labs: Abnormal lab results 06/12/18 06/12/18 Range/Units 23:08 23:08 RBC 5.09 H (3.65-5.03) M/mm3 Hgb 15.8 H (10.1-14.3) gm/dl Hct 45.5 H (30.3-42.9) % MCHC 35 H (30-34) % [place] % (Auto) 7.8 H (0.0-7.3) % Potassium 3.4 L (3.6-5.0) mmol/L Glucose 101 H (65-100) mg/dL - Imaging and Cardiology CT Scan - head: report reviewed, image reviewed (carotid duplex shows 80-99% left ICA stenosis CT scan of the head shows a right frontal parietal infarct along with MRI) MRI - head: report reviewed, image reviewed Assessment and Plan - Patient Problems (1) Arm paresthesia, left Current Visit: Yes Status: Acute Plan to address problem: As she has only been on aspirin for several days I'm not sure that it is fully kicked in. In addition she has had Plavix added to her regime for increased antiplatelet coverage. (2) History of CVA (cerebrovascular accident) Current Visit: Yes Status: Acute Plan to address problem: I need a CT angiogram of the head and neck to fully determine her anatomy in her left carotid is probably a surgical lesion but the question is timing should be done during this hospitalization or after a 2-3 months delay. (3) HTN (hypertension) Current Visit: No Status: Acute Qualifiers: Hypertension type: essential hypertension Qualified Code(s): I10 - Essential (primary) hypertension (4) Carotid stenosis with cerebral infarction less than 8 weeks ago Current Visit: Yes Status: Chronic Plan to address problem: Her left internal carotid artery has an 80-99% stenosis but this is contralateral to the known cerebral infarction. It is not clear that this lesion has a cause of her stroke typical approach of a symptomatic carotid lesion ipsilateral to a stroke is surgical intervention sometime within 2-7 days after the stroke. A high-grade lesion contralateral to a stroke however typically is treated 6-12 weeks later to allow for recovery of intracranial artery auto-regulation. If surgery is contemplated both cardiac and pulmonary clearance will be needed.
--- NOTE | 2018-06-13 14:04 | Event Note ---
Date: 06/13/18 Patient with stroke, discharged home few days ago presents with left upper extremity numbness. I have seen and examined her. Neuro and vasc surg consulted.
[2018-06-14 09:07] LABS: BUN/Creatinine Ratio 38; Blood Urea Nitrogen 23 mg/dL (7-17); Calcium 8.9 mg/dL (8.4-10.2); Hemolysis Index 45
[2018-06-14] MEDS: PLAVIX PO SCH (10:40)
[2018-06-14] MEDS: LOVENOX SUB-Q SCH (10:41)
[2018-06-14] MEDS: ASPIRIN PO SCH (10:41)
--- NOTE | 2018-06-14 10:54 | Progress Note ---
Subjective Date of service: 06/14/18 Interval history: went over the history with DR. Urena yesterday and recommend the CTA she has very complicated stroke of the posterior left cerebral artery involves sensory nucleus of the left thalamus Objective - Vital Sign Vital Signs - 12hr 06/13/18 06/14/18 06/14/18 23:06 03:32 08:34 Temperature 97.9 F 97.4 F L 98.3 F Pulse Rate 97 H 97 H 95 H Respiratory 18 16 16 Rate Blood Pressure 108/65 130/72 127/81 O2 Sat by Pulse 91 88 92 Oximetry - Laboratory Findings CBC and BMP: 06/12/18 23:08 06/14/18 07:49 Abnormal Lab Findings: Abnormal Labs 06/12/18 06/12/18 06/14/18 23:08 23:08 07:49 RBC 5.09 H Hgb 15.8 H Hct 45.5 H MCHC 35 H [place] % (Auto) 7.8 H Potassium 3.4 L BUN Creatinine Glucose 101 H Triglycerides 162 H 06/14/18 07:49 RBC Hgb Hct MCHC [place] % (Auto) Potassium BUN 23 H Creatinine 0.6 L Glucose 107 H Triglycerides
--- NOTE | 2018-06-14 12:49 | Progress Note ---
Assessment and Plan Assessment and plan: Numbness left uper ext Re-admitted Neurology following Recent acute ischemic stroke, few days ago neurology following left ICA stenosis on carotid doppler CTA Neck ordered Hypertension BP stable COPD History of breast cancer Full code status History Interval history: Numbness left upper ext Hospitalist Physical - Physical exam Narrative exam: Gen: Not in acute distress, sitting up in bed HEENT: Normocephalic, atraumatic Neck: supple, no JVD Heart: S1 and S2 reg, no murmurs, rubs or gallop Lungs: Clear, no crackles Abd: soft, non tender, non distended, normal BS Ext: No edema, no clubbing, no cyanosis, left arm av fistula Neuro: AAO x 3, moves all ext, paresthesia left upper ext Psych:Normal mood - Constitutional Vitals: Temp Pulse Resp BP Pulse Ox 97.5 F L 86 16 113/56 92 06/14/18 11:57 06/14/18 11:57 06/14/18 11:57 06/14/18 11:57 06/14/18 11:57 Results - Labs CBC & Chem 7: 06/12/18 23:08 06/14/18 07:49 Labs: Laboratory Last Values WBC 9.2 K/mm3 (4.5-11.0) 06/12/18 23:08 RBC 5.09 M/mm3 (3.65-5.03) H 06/12/18 23:08 Hgb 15.8 gm/dl (10.1-14.3) H 06/12/18 23:08 Hct 45.5 % (30.3-42.9) H 06/12/18 23:08 MCV 90 fl (79-97) 06/12/18 23:08 MCH 31 pg (28-32) 06/12/18 23:08 MCHC 35 % (30-34) H 06/12/18 23:08 RDW 13.4 % (13.2-15.2) 06/12/18 23:08 Plt Count 268 K/mm3 (140-440) 06/12/18 23:08 Lymph % (Auto) 32.5 % (13.4-35.0) 06/12/18 23:08 [place] % (Auto) 7.8 % (0.0-7.3) H 06/12/18 23:08 Eos % (Auto) 2.6 % (0.0-4.3) 06/12/18 23:08 Baso % (Auto) 0.8 % (0.0-1.8) 06/12/18 23:08 Lymph # 3.0 K/mm3 (1.2-5.4) 06/12/18 23:08 [place] # 0.7 K/mm3 (0.0-0.8) 06/12/18 23:08 Eos # 0.2 K/mm3 (0.0-0.4) 06/12/18 23:08 Baso # 0.1 K/mm3 (0.0-0.1) 06/12/18 23:08 Seg Neutrophils % 56.3 % (40.0-70.0) 06/12/18 23:08 Seg Neutrophils # 5.2 K/mm3 (1.8-7.7) 06/12/18 23:08 Sodium 143 mmol/L (137-145) 06/14/18 07:49 Potassium 4.2 mmol/L (3.6-5.0) D 06/14/18 07:49 Chloride 104.5 mmol/L (98-107) 06/14/18 07:49 Carbon Dioxide 23 mmol/L (22-30) 06/14/18 07:49 Anion Gap 20 mmol/L 06/14/18 07:49 BUN 23 mg/dL (7-17) H 06/14/18 07:49 Creatinine 0.6 mg/dL (0.7-1.2) L 06/14/18 07:49 Estimated GFR > 60 ml/min 06/14/18 07:49 BUN/Creatinine Ratio 38 % 06/14/18 07:49 Glucose 107 mg/dL (65-100) H 06/14/18 07:49 POC Glucose 87 (70-105) 06/12/18 21:45 Calcium 8.9 mg/dL (8.4-10.2) 06/14/18 07:49 Magnesium 1.80 mg/dL (1.7-2.3) 06/12/18 23:08 Triglycerides 162 mg/dL (2-149) H 06/14/18 07:49 Cholesterol 164 mg/dL (50-199) 06/14/18 07:49 LDL Cholesterol Direct 110 mg/dL (50-130) 06/14/18 07:49 HDL Cholesterol 41 mg/dL (40-59) 06/14/18 07:49 Cholesterol/HDL Ratio 4.00 % 06/14/18 07:49 TSH 2.040 mlU/mL (0.270-4.200) 06/12/18 23:08 Active Medications - Current Medications Current Medications: Generic Name Dose Route Start Last Admin Trade Name Freq PRN Reason Stop Dose Admin Acetaminophen 650 mg 06/13/18 00:41 Tylenol PO Q4H PRN Pain, Mild (1-3) Alprazolam 1 mg 06/13/18 00:44 06/13/18 21:06 Xanax PO 1 mg TID PRN Administration Anxiety Aspirin 325 mg 06/14/18 11:00 06/14/18 10:41 Aspirin PO 325 mg QDAY ALAN Administration Atorvastatin Calcium 40 mg 06/13/18 22:00 06/13/18 21:06 Lipitor PO 40 mg QHS ALAN Administration Bisacodyl 10 mg 06/13/18 00:41 Dulcolax [place] QDAY PRN Constipation Clopidogrel Bisulfate 75 mg 06/13/18 10:00 06/14/18 10:40 Plavix PO 75 mg DAILY ALAN Administration Enoxaparin Sodium 30 mg 06/13/18 10:00 06/14/18 10:41 Lovenox SUB-Q 30 mg QDAY ALAN Administration Hydralazine HCl 5 mg 06/13/18 00:45 Apresoline IV Q6H PRN Hypertension Magnesium Hydroxide 30 ml 06/13/18 00:41 Milk Of Magnesia PO Q4H PRN Constipation Ondansetron HCl 4 mg 06/13/18 00:41 Zofran IV Q8H PRN Nausea And Vomiting Sodium Chloride 10 ml 06/13/18 00:41 Sodium Chloride Flush Syringe 10 Ml IV PRN PRN LINE FLUSH
--- NOTE | 2018-06-14 14:49 | Progress Note ---
Assessment and Plan - Patient Problems (1) Arm paresthesia, left Current Visit: Yes Status: Acute (2) History of CVA (cerebrovascular accident) Current Visit: Yes Status: Acute Plan to address problem: Waiting a CT angiogram of the head and neck to further define her anatomy. If the left carotid is considered fairly symptomatic would probably wait on surgical intervention for 6-12 weeks. If symptomatic may consider proceeding with endarterectomy. (3) HTN (hypertension) Current Visit: No Status: Acute Qualifiers: Hypertension type: essential hypertension Qualified Code(s): I10 - Essential (primary) hypertension (4) Carotid stenosis with cerebral infarction less than 8 weeks ago Current Visit: Yes Status: Chronic Subjective Date of service: 06/14/18 Interval history: Since adding the Plavix to her aspirin she's had no recurrent numbness or tingling or discomfort in her left forearm. Till awaiting the CT angiogram to be performed. Objective - Exam Narrative Exam: Recent CVA contralateral to the left ICA stenosis though questionable new thalamic infarct per neurology. Neurological examination is unchanged from yesterday. - Constitutional Vitals: Vital Signs - 12hr 06/14/18 06/14/18 06/14/18 03:32 08:34 10:00 Temperature 97.4 F L 98.3 F Pulse Rate 97 H 95 H Pulse Rate [ 97 H Apical] Pulse Rate [ 97 H Left Radial] Pulse Rate [ 97 H Right Radial] Respiratory 16 16 19 Rate Blood Pressure 130/72 127/81 O2 Sat by Pulse 88 92 99 Oximetry 06/14/18 11:57 Temperature 97.5 F L Pulse Rate 86 Pulse Rate [ Apical] Pulse Rate [ Left Radial] Pulse Rate [ Right Radial] Respiratory 16 Rate Blood Pressure 113/56 O2 Sat by Pulse 92 Oximetry - Labs CBC & Chem 7: 06/12/18 23:08 06/14/18 07:49 Labs: Abnormal lab results 06/14/18 06/14/18 Range/Units 07:49 07:49 BUN 23 H (7-17) mg/dL Creatinine 0.6 L (0.7-1.2) mg/dL Glucose 107 H (65-100) mg/dL Triglycerides 162 H (2-149) mg/dL Medications & Allergies - Medications Allergies/Adverse Reactions: Allergies No Known Allergies Allergy (Unverified 06/08/18 14:24) Home Medications: Home Medications Medication Instructions Recorded Confirmed Last Taken Type ALPRAZolam [Xanax TAB] 1 mg PO TID PRN 06/08/18 06/13/18 1 Day Ago History ~06/12/18 Triamter/Hctz 37.5-25 mg 1 tab PO QDAY 06/08/18 06/13/18 1 Day Ago History [Maxzide-25] ~06/12/18 Zolpidem [Ambien] 10 mg PO QHS 06/08/18 06/13/18 06/13/18 02:00 History Aspirin [Aspirin TAB] 325 mg PO QDAY #30 tablet 06/09/18 06/13/18 1 Day Ago Rx ~06/12/18 AtorvaSTATin [Lipitor] 40 mg PO QHS #30 tablet 06/09/18 06/13/18 1 Day Ago Rx ~06/12/18 Cimetidine [Tagamet Hb] 400 mg PO PRN 06/13/18 06/13/18 2 Weeks Ago History ~05/30/18 Active Medications: Generic Name Dose Route Start Last Admin Trade Name Freq PRN Reason Stop Dose Admin Acetaminophen 650 mg 06/13/18 00:41 Tylenol PO Q4H PRN Pain, Mild (1-3) Alprazolam 1 mg 06/13/18 00:44 06/13/18 21:06 Xanax PO 1 mg TID PRN Administration Anxiety Aspirin 325 mg 06/14/18 11:00 06/14/18 10:41 Aspirin PO 325 mg QDAY ALAN Administration Atorvastatin Calcium 40 mg 06/13/18 22:00 06/13/18 21:06 Lipitor PO 40 mg QHS ALAN Administration Bisacodyl 10 mg 06/13/18 00:41 Dulcolax [place] QDAY PRN Constipation Clopidogrel Bisulfate 75 mg 06/13/18 10:00 06/14/18 10:40 Plavix PO 75 mg DAILY ALAN Administration Enoxaparin Sodium 30 mg 06/13/18 10:00 06/14/18 10:41 Lovenox SUB-Q 30 mg QDAY ALAN Administration Hydralazine HCl 5 mg 06/13/18 00:45 Apresoline IV Q6H PRN Hypertension Magnesium Hydroxide 30 ml 06/13/18 00:41 Milk Of Magnesia PO Q4H PRN Constipation Ondansetron HCl 4 mg 06/13/18 00:41 Zofran IV Q8H PRN Nausea And Vomiting Sodium Chloride 10 ml 06/13/18 00:41 Sodium Chloride Flush Syringe 10 Ml IV PRN PRN LINE FLUSH
--- NOTE | 2018-06-14 18:31 | Cat Scan Report ---
CT ANGIO NECK, CT ANGIO HEAD CLINICAL INDICATION: Female, 73 years of age. carotid stenosis, stroke-recurrent symptoms COMPARISON: CT of the head June 12, 2018. Carotid ultrasound June 08, 2018. TECHNIQUE: Contiguous axial images were obtained through the head and neck after the administration o f IV contrast per institutional protocol. Additional sagittal and coronal reformatted images were obt ained. This CT exam was performed using one or more of the following dose reduction techniques: auto mated exposure control, adjustment of the mA and/or kV according to patient size, or use of iterative reconstruction technique. CT ANGIOGRAPHY OF THE NECK WITH CONTRAST: Moderate calcified plaque along the aortic arch. Mild to moderate calcified plaque at the origin left subclavian artery mild calcified plaque at the origin of the right subclavian artery. Prominent calcified plaque at the left carotid bifurcation. The lumen narrows to 1.4 mm. More distall y the lumen measures 3.6 mm. Estimated stenosis 60% by NASCET criteria. Length of stenosis approximat pa[place] 1 cm. [id number] calcified plaque at the right carotid bifurcation. The lumen narrows to 3. 5 mm. More distally the lumen measures 3.9 mm. Estimated stenosis approximately 10% by NASCET criteri a. Mild calcified plaque along the distal extracranial right internal carotid artery. No significant associated stenosis. Looping configuration of the distal left extracranial internal carotid artery. Mild calcified plaque at the origin of the left vertebral artery. Left vertebral artery is dominant. Extracranial portions of the vertebral arteries are patent. Spaces of the neck are preserved. Upper airway is patent. 10 mm hypodense left thyroid lobe nodule. CT ANGIOGRAPHY OF THE HEAD WITH CONTRAST: Noncalcified plaque along the cavernous segment of the left internal carotid artery. No significant a ssociated stenosis. A1 segments are symmetric in caliber. There is a tiny anterior communicating rose ry. Symmetric branching opacification of the anterior and middle cerebral arteries. Tiny bilateral po sterior to indicating arteries appear to be present. Tortuous course the vertebrobasilar system. Mild calcified plaque along the proximal intracranial portion of the left vertebral artery. No high-grade stenosis or occlusion. No early draining vein. No area of abnormal hypervascular enhancement. Retrosternal opacification yareli or dural venous sinuses. Limited evaluation of brain parenchyma by CT angiography algorithm. No large area of infarct or intra cranial hemorrhage. IMPRESSION: 1. Prominent calcified plaque at the origin of left internal carotid artery. Estimated stenosis appro ximately 60%. Length of stenosis 1 cm. 2. Mild/moderate calcified plaque at the origin the right internal carotid artery. Estimated stenosis approximately 10% by NASCET criteria. 3. Noncalcified plaque along the cavernous portion of left internal carotid artery left vertebral art niles. Otherwise, negative CTA of the head. No high-grade stenosis or occlusion of the major intracrani al arterial vessels. This document is electronically signed by Ainsley Torres DO., June 14 2018 06:29:06 PM ET
[2018-06-14] MEDS: XANAX PO PRN (22:15)
[2018-06-15] MEDS: LOVENOX SUB-Q SCH (09:47)
[2018-06-15] MEDS: PLAVIX PO SCH (09:47)
[2018-06-15] MEDS: ASPIRIN PO SCH (09:47)
[2018-06-15] MEDS ORDERED: MAXZIDE-25 PO SCH (10:00)
--- NOTE | 2018-06-15 12:11 | Progress Note ---
Assessment and Plan Pt presented with multiple recent hospitalizations. MRI suggest right frontal parietal lobe punctate infarction. Carotid duplex reported as contralateral LICA stenosis ~80%. Ipsilateral CISCO stenosis ~10%. Pt not on antiplatelet or statin medications at the time of the event. CTA ordered and reports: CT ANGIOGRAPHY OF THE NECK WITH CONTRAST: Moderate calcified plaque along the aortic arch. Mild to moderate calcified plaque at the origin left subclavian artery mild calcified plaque at the origin of the right subclavian artery. Prominent calcified plaque at the left carotid bifurcation. The lumen narrows to 1.4 mm. More distally the lumen measures 3.6 mm. Estimated stenosis 60% by NASCET criteria. Length of stenosis approximately 1 cm. [id number] calcified plaque at the right carotid bifurcation. The lumen narrows to 3.5 mm. More distally the keily men measures 3.9 mm. Estimated stenosis approximately 10% by NASCET criteria. Mild calcified plaque along the distal extracranial right internal carotid artery. No significant associated stenosis. Looping configuration of the distal left extracranial internal carotid artery. Mild calcified plaque at the origin of the left vertebral artery. Left vertebral artery is dominant. Extracranial portions of the vertebral arteries are patent. Recommend: Medical optimization Carotid stenosis is contral lateral to acute event. If not felt to be symptomatic then recommend delaying surgical intervention with Left CEA to allow pt to recover from acute CVA (usually 6wks to 3 months). Continue with antiplatelet and statin therapy. Encouraged pt to stop smoking. If no plans for intervention then pt should f/u in our office upon discharge (to arrange possible left CEA). Subjective Date of service: 06/15/18 Interval history: Pt awake and alert, without specific complaint at present. Wants to go home. Objective - Constitutional Vitals: Vital Signs - 12hr 06/15/18 06/15/18 06/15/18 04:42 09:07 09:10 Temperature 97.3 F L 98.5 F Pulse Rate 97 H 91 H 91 H Respiratory 22 20 20 Rate Blood Pressure 156/74 173/100 Blood Pressure 166/85 [Left] Blood Pressure 179/100 [Right] O2 Sat by Pulse 91 95 91 Oximetry General appearance: Present: no acute distress - EENT Eyes: EOM intact ENT: hearing intact - Neck Neck: supple - Respiratory Respiratory effort: normal Extremities: no ischemia - Neurologic Neurologic: no focal deficits, moves all extremities - Psychiatric Psychiatric: appropriate mood/affect, intact judgment & insight, cooperative - Labs CBC & Chem 7: 06/12/18 23:08 06/14/18 07:49 Medications & Allergies - Medications Allergies/Adverse Reactions: Allergies No Known Allergies Allergy (Unverified 06/08/18 14:24) Home Medications: Home Medications Medication Instructions Recorded Confirmed Last Taken Type ALPRAZolam [Xanax TAB] 1 mg PO TID PRN 06/08/18 06/13/18 1 Day Ago History ~06/12/18 Triamter/Hctz 37.5-25 mg 1 tab PO QDAY 06/08/18 06/13/18 1 Day Ago History [Maxzide-25] ~06/12/18 Zolpidem [Ambien] 10 mg PO QHS 06/08/18 06/13/18 06/13/18 02:00 History Aspirin [Aspirin TAB] 325 mg PO QDAY #30 tablet 06/09/18 06/13/18 1 Day Ago Rx ~06/12/18 AtorvaSTATin [Lipitor] 40 mg PO QHS #30 tablet 06/09/18 06/13/18 1 Day Ago Rx ~06/12/18 Cimetidine [Tagamet Hb] 400 mg PO PRN 06/13/18 06/13/18 2 Weeks Ago History ~05/30/18 Active Medications: Generic Name Dose Route Start Last Admin Trade Name Freq PRN Reason Stop Dose Admin Acetaminophen 650 mg 06/13/18 00:41 Tylenol PO Q4H PRN Pain, Mild (1-3) Alprazolam 1 mg 06/13/18 00:44 06/14/18 22:15 Xanax PO 1 mg TID PRN Administration Anxiety Aspirin 325 mg 06/14/18 11:00 06/15/18 09:47 Aspirin PO 325 mg QDAY ALAN Administration Atorvastatin Calcium 40 mg 06/13/18 22:00 06/14/18 22:15 Lipitor PO 40 mg QHS ALAN Administration Bisacodyl 10 mg 06/13/18 00:41 Dulcolax [place] QDAY PRN Constipation Clopidogrel Bisulfate 75 mg 06/13/18 10:00 06/15/18 09:47 Plavix PO 75 mg DAILY ALAN Administration Enoxaparin Sodium 40 mg 06/16/18 10:00 Lovenox SUB-Q QDAY@1000 ALAN Guaifenesin 10 ml 06/15/18 01:01 06/15/18 01:31 Guaifenesin Dm Syrup PO 10 ml Q4H PRN Administration Cough Hydralazine HCl 5 mg 06/13/18 00:45 Apresoline IV Q6H PRN Hypertension Magnesium Hydroxide 30 ml 06/13/18 00:41 Milk Of Magnesia PO Q4H PRN Constipation Ondansetron HCl 4 mg 06/13/18 00:41 Zofran IV Q8H PRN Nausea And Vomiting Sodium Chloride 10 ml 06/13/18 00:41 Sodium Chloride Flush Syringe 10 Ml IV PRN PRN LINE FLUSH Triamterene/HCTZ 1 each 06/15/18 10:00 06/15/18 10:25 Maxzide-25 PO 1 each QDAY ALAN Administration
--- NOTE | 2018-06-15 16:16 | Progress Note ---
Subjective Date of service: 06/15/18 Interval history: OK for discharge the CTA shows changes intracranial that can be treated medically cleared for discharge Objective - Vital Sign Vital Signs - 12hr 06/15/18 06/15/18 06/15/18 04:42 09:07 09:10 Temperature 97.3 F L 98.5 F Pulse Rate 97 H 91 H 91 H Pulse Rate [ Apical] Pulse Rate [ Left Radial] Pulse Rate [ Right Radial] Respiratory 22 20 20 Rate Blood Pressure 156/74 173/100 Blood Pressure 166/85 [Left] Blood Pressure 179/100 [Right] O2 Sat by Pulse 91 95 91 Oximetry 06/15/18 06/15/18 10:00 12:00 Temperature 98.4 F Pulse Rate 87 Pulse Rate [ 87 Apical] Pulse Rate [ 87 Left Radial] Pulse Rate [ 87 Right Radial] Respiratory 19 Rate Blood Pressure Blood Pressure [Left] Blood Pressure 121/61 [Right] O2 Sat by Pulse 99 Oximetry - Laboratory Findings CBC and BMP: 06/12/18 23:08 06/14/18 07:49 Abnormal Lab Findings: Abnormal Labs 06/12/18 06/12/18 06/14/18 23:08 23:08 07:49 RBC 5.09 H Hgb 15.8 H Hct 45.5 H MCHC 35 H [place] % (Auto) 7.8 H Potassium 3.4 L BUN Creatinine Glucose 101 H Triglycerides 162 H 06/14/18 07:49 RBC Hgb Hct MCHC [place] % (Auto) Potassium BUN 23 H Creatinine 0.6 L Glucose 107 H Triglycerides
--- NOTE | 2018-06-15 18:09 | Progress Note ---
Hospitalist Physical - Constitutional Vitals: Temp Pulse Resp BP Pulse Ox 98.4 F 87 19 121/61 99 06/15/18 12:00 06/15/18 12:00 06/15/18 10:00 06/15/18 12:00 06/15/18 10:00 General appearance: Present: no acute distress Results - Labs CBC & Chem 7: 06/12/18 23:08 06/14/18 07:49 Labs: Laboratory Last Values WBC 9.2 K/mm3 (4.5-11.0) 06/12/18 23:08 RBC 5.09 M/mm3 (3.65-5.03) H 06/12/18 23:08 Hgb 15.8 gm/dl (10.1-14.3) H 06/12/18 23:08 Hct 45.5 % (30.3-42.9) H 06/12/18 23:08 MCV 90 fl (79-97) 06/12/18 23:08 MCH 31 pg (28-32) 06/12/18 23:08 MCHC 35 % (30-34) H 06/12/18 23:08 RDW 13.4 % (13.2-15.2) 06/12/18 23:08 Plt Count 268 K/mm3 (140-440) 06/12/18 23:08 Lymph % (Auto) 32.5 % (13.4-35.0) 06/12/18 23:08 [place] % (Auto) 7.8 % (0.0-7.3) H 06/12/18 23:08 Eos % (Auto) 2.6 % (0.0-4.3) 06/12/18 23:08 Baso % (Auto) 0.8 % (0.0-1.8) 06/12/18 23:08 Lymph # 3.0 K/mm3 (1.2-5.4) 06/12/18 23:08 [place] # 0.7 K/mm3 (0.0-0.8) 06/12/18 23:08 Eos # 0.2 K/mm3 (0.0-0.4) 06/12/18 23:08 Baso # 0.1 K/mm3 (0.0-0.1) 06/12/18 23:08 Seg Neutrophils % 56.3 % (40.0-70.0) 06/12/18 23:08 Seg Neutrophils # 5.2 K/mm3 (1.8-7.7) 06/12/18 23:08 Sodium 143 mmol/L (137-145) 06/14/18 07:49 Potassium 4.2 mmol/L (3.6-5.0) D 06/14/18 07:49 Chloride 104.5 mmol/L (98-107) 06/14/18 07:49 Carbon Dioxide 23 mmol/L (22-30) 06/14/18 07:49 Anion Gap 20 mmol/L 06/14/18 07:49 BUN 23 mg/dL (7-17) H 06/14/18 07:49 Creatinine 0.6 mg/dL (0.7-1.2) L 06/14/18 07:49 Estimated GFR > 60 ml/min 06/14/18 07:49 BUN/Creatinine Ratio 38 % 06/14/18 07:49 Glucose 107 mg/dL (65-100) H 06/14/18 07:49 POC Glucose 87 (70-105) 06/12/18 21:45 Calcium 8.9 mg/dL (8.4-10.2) 06/14/18 07:49 Magnesium 1.80 mg/dL (1.7-2.3) 06/12/18 23:08 Triglycerides 162 mg/dL (2-149) H 06/14/18 07:49 Cholesterol 164 mg/dL (50-199) 06/14/18 07:49 LDL Cholesterol Direct 110 mg/dL (50-130) 06/14/18 07:49 HDL Cholesterol 41 mg/dL (40-59) 06/14/18 07:49 Cholesterol/HDL Ratio 4.00 % 06/14/18 07:49 TSH 2.040 mlU/mL (0.270-4.200) 06/12/18 23:08 Active Medications - Current Medications Current Medications: Generic Name Dose Route Start Last Admin Trade Name Freq PRN Reason Stop Dose Admin Acetaminophen 650 mg 06/13/18 00:41 Tylenol PO Q4H PRN Pain, Mild (1-3) Alprazolam 1 mg 06/13/18 00:44 06/14/18 22:15 Xanax PO 1 mg TID PRN Administration Anxiety Aspirin 325 mg 06/14/18 11:00 06/15/18 09:47 Aspirin PO 325 mg QDAY ALAN Administration Atorvastatin Calcium 40 mg 06/13/18 22:00 06/14/18 22:15 Lipitor PO 40 mg QHS ALAN Administration Bisacodyl 10 mg 06/13/18 00:[address] QDAY PRN Constipation Clopidogrel Bisulfate 75 mg 06/13/18 10:00 06/15/18 09:47 Plavix PO 75 mg DAILY ALAN Administration Enoxaparin Sodium 40 mg 06/16/18 10:00 Lovenox SUB-Q QDAY@1000 [facility] Guaifenesin 10 ml 06/15/18 01:01 06/15/18 01:31 Guaifenesin Dm Syrup PO 10 ml Q4H PRN Administration Cough Hydralazine HCl 5 mg 06/13/18 00:45 Apresoline IV Q6H PRN Hypertension Magnesium Hydroxide 30 ml 06/13/18 00:41 Milk Of Magnesia PO Q4H PRN Constipation Ondansetron HCl 4 mg 06/13/18 00:41 Zofran IV Q8H PRN Nausea And Vomiting Sodium Chloride 10 ml 06/13/18 00:41 Sodium Chloride Flush Syringe 10 Ml IV PRN PRN LINE FLUSH Triamterene/HCTZ 1 each 06/15/18 10:00 06/15/18 10:25 Maxzide-25 PO 1 each QDAY ALAN Administration
[2018-06-15 18:30] VITALS: BP 145/73
--- NOTE | 2018-06-15 18:42 | Discharge Summary ---
Providers - Providers Date of Admission: 06/13/18 00:41 Date of discharge: 06/15/18 Attending physician: TYREE MELO 06/13/18 Consult to Physician [CONS] Routine Comment: Consulting Provider: DANISHA LUCIO Physician Instructions: Reason For Exam: cva 06/13/18 00:41 Occupational Therapy Evaluate and Treat [CONS] Routine Comment: Reason For Exam: Neuro deficits Physical Therapy Evaluation and Treat [CONS] Routine Comment: Reason For Exam: Neuro deficits 06/13/18 08:22 Consult to Physician [CONS] Routine Comment: Consulting Provider: FÁTIMA DELAROSA Physician Instructions: Reason For Exam: carotid stenosis Primary care physician: RC HUBER Hospitalization Condition: Fair Hospital course: patient is 73-year-old woman with a history of hypertension, COPD, breast cancer, recently diagnosed with CVA and was discharged from the hospital on June 09May, return to the emergency room today complaining of left upper extremity numbness. She was seen and evaluated and admitted. Patient was evaluated by Neurologist. Carotid doppler US had revealed left ICA 80-99% stenosies. He was evaluated by vascular surgeon. Neck CTA was done and showed a 60% stenosis in the left ICA. This was reviewed by vascular surgeon and he recommended no surgery needed at this time. Patient was subsequently discharged home to follow as an outpatient. Total time spent on discharge, 32 minutes Disposition: [id number] TO HOME OR SELFCARE - Discharge Diagnoses (1) Arm paresthesia, left Status: Acute (2) COPD (chronic obstructive pulmonary disease) Status: Acute Qualifiers: Emphysema type: unspecified Qualified Code(s): J43.9 - Emphysema, unspecified (3) HTN (hypertension) Status: Acute Qualifiers: Hypertension type: essential hypertension Qualified Code(s): I10 - Essential (primary) hypertension (4) History of CVA (cerebrovascular accident) Status: Acute (5) Tobacco use Status: Acute (6) Carotid stenosis with cerebral infarction less than 8 weeks ago Status: Chronic Core Measure Documentation - Palliative Care Palliative Care/ Comfort Measures: Not Applicable - Core Measures Any of the following diagnoses?: none Exam - Constitutional Vitals: Temp Pulse Resp BP Pulse Ox 98.1 F 91 H 18 145/73 99 06/15/18 17:00 06/15/18 17:00 06/15/18 17:00 06/15/18 17:00 06/15/18 10:00 Plan Activity: advance as tolerated Diet: low fat, low cholesterol, low salt Additional Instructions: 1.Follow up with Dr. Huber in 1 week. 2.Follow up with Dr. Lucio in 1 week. 3.Follow up with Dr. Urena in 1-2 weeks [facility] - [facility]-5 Days Prescriptions: Clopidogrel [Plavix] 75 mg PO DAILY #30 tablet
--- NOTE | 2018-06-15 22:51 | Event Note ---
Date: 06/15/18 Spoke with patient at length prior to discharge. CTA shows small amount of stenosis on right (ipsi to event) and moderate (60%) stenosis in left ICA. Neither lesion requires surgery. Recommend ASA and Plavix. Discussed with Dr Serrano as well.
[2018-06-16] MEDS ORDERED: LOVENOX SUB-Q SCH (10:00)
== END 2018-06-15 19:54 | disposition home or self-care (01) | DRG 68 ==
LOC: ED 21:34 → 4A 06-13 00:41
PROVIDERS: ADMIT Internal Medicine; ATTEND Internal Medicine
PROC: 3E0234Z Introduction of Serum, Toxoid and Vaccine into Muscle, Percutaneous Approach (ICD-10-PCS; principal; 2018-06-13)
DX: I65.23 Occlusion and stenosis of bilateral carotid arteries (principal); I69.352 Hemiplegia and hemiparesis following cerebral infarction affecting left dominant side; I10 Essential (primary) hypertension; F17.200 Nicotine dependence, unspecified, uncomplicated; E87.6 Hypokalemia; R20.2 Paresthesia of skin; J44.9 Chronic obstructive pulmonary disease, unspecified; Z85.3 Personal history of malignant neoplasm of breast; Z90.13 Acquired absence of bilateral breasts and nipples; Z82.49 Family history of ischemic heart disease and other diseases of the circulatory system; Z79.82 Long term (current) use of aspirin; Z79.899 Other long term (current) drug therapy; Z23 Encounter for immunization
CPT/HCPCS: 36415; 70450; 70496; 70498; 80048; 80061; 82962; 83735; 84443; 85025; 87116; 90732; 93005; 93010; 96374; 99406; G0378; A9270-GY; J1650; Q9967

== ENCOUNTER 2018-09-03 06:28 | Inpatient (IN) | payer MEDICARE ==
[2018-08-31 11:04] LABS: Basophils # (Auto) 0.1 K/mm3 (0.0-0.1); Basophils % (Auto) 0.8 % (0.0-1.8); Eosinophils # (Auto) 0.1 K/mm3 (0.0-0.4); Eosinophils % (Auto) 1.5 % (0.0-4.3); Hematocrit 43.9 % (30.3-42.9); Lymphocytes % (Auto) 20.1 % (13.4-35.0); Mean Corpuscular HGB Conc 34 % (30-34); Mean Corpuscular Volume 89 fl (79-97); Monocytes # (Auto) 0.7 K/mm3 (0.0-0.8); Monocytes % (Auto) 6.7 % (0.0-7.3); Platelet Count 265 K/mm3 (140-440); Red Blood Count 4.93 M/mm3 (3.65-5.03); Red Cell Distribution Width 13.9 % (13.2-15.2)
[2018-08-31 11:27] LABS: BUN/Creatinine Ratio 33; Blood Urea Nitrogen 20 mg/dL (7-17); Calcium 9.7 mg/dL (8.4-10.2); Hemolysis Index 11
--- NOTE | 2018-08-31 15:53 | Anesthesia Consultation ---
Anesthesia Consult and Med Hx Date of service: 08/31/18 - Airway Anesthetic Teeth Evaluation: Good ROM Head & Neck: Adequate Mental/Hyoid Distance: Adequate Mallampati Class: Class III Intubation Access Assessment: Possibly Difficult - Pulmonary Exam CTA: Yes - Cardiac Exam Cardiac Exam: RRR - Pre-Operative Health Status ASA Pre-Surgery Classification: ASA3 Proposed Anesthetic Plan: General - Pulmonary Hx Smoking: Yes (1 PPD) COPD: Yes (daily bevespi inhaler; no recent exacerbations) Home Oxygen Therapy: No - Cardiovascular System Hx Hypertension: Yes Hx Coronary Artery Disease: Yes Hx Heart Attack/AMI: No Hx Percutaneous Transluminal Coronary Angioplasty (PTCA): No Hx Cardia Arrhythmia: No - Central Nervous System Hx Seizures: No CVA: Yes (05/2018- No defecits) - Gastrointestinal Hx Gastroesophageal Reflux Disease: Yes (controlled) - Endocrine Hx Renal Disease: No Hx Liver Disease: No Hx Insulin Dependent Diabetes: No Hx Non-Insulin Dependent Diabetes: No Hx Thyroid Disease: No - Other Systems Hx Obesity: No - Additional Comments Anesthesia Medical History Comments: Hx PONV. TTE 05/2018: normal EF. mild TR, mild pHTN with RVSP 37. Stress test 07/2018: normal. Discussed pre-induction a- line placement for HD monitoring, possible post op ventilation given chronic lung disease, and post op ICU admission given nature of surgical procedure.
[~2018-09-03 06:28] MED LIST: ANCEF/STERILE WATER 2 GM/20 ML 2 GM/20 ML SYRINGE IV NR; LACTATED RINGERS 1,000 ML IV SCH; PROVENTIL IH NR; SUBLIMAZE IV PRN
[2018-09-03] MEDS ORDERED: XYLOCAINE 1% 20 mL ONE (07:20)
[2018-09-03] MEDS ORDERED: PROTAMINE SULFATE ONE (07:20)
[2018-09-03] MEDS ORDERED: MARCAINE 0.5% INFILTRATI ONE (07:21)
[2018-09-03] MEDS ORDERED: HEPARIN 10,000 UNITS/10 ML ONE (07:21)
[2018-09-03] MEDS ORDERED: PAPAVERINE ONE (07:21)
[2018-09-03] MEDS ORDERED: NACL 0.9% 500 ML 500 ML ONE (07:21)
[2018-09-03] MEDS ORDERED: ZEMURON IV ONE (07:32)
[2018-09-03] MEDS ORDERED: ZOFRAN ONE (07:32)
[2018-09-03] MEDS ORDERED: DECADRON ONE (07:32)
--- NOTE | 2018-09-03 07:32 | Anesthesia Day of Surgery ---
Anesthesia Day of Surgery - Day of Surgery Patient Examined: Yes Patient H&P Reviewed: Yes Patient is NPO: Yes
[2018-09-03] MEDS ORDERED: SUBLIMAZE ONE (07:33)
[2018-09-03] MEDS ORDERED: DIPRIVAN 10 MG/ML IV ONE (07:33)
[2018-09-03] MEDS ORDERED: HEPARIN 10,000 UNITS/10 ML IR ONE (08:07)
[2018-09-03] MEDS ORDERED: NACL 0.9% 500 ML IRRIGATION ONE (08:07)
[2018-09-03] MEDS ORDERED: NACL 0.9% IR ONE (08:07)
[2018-09-03] MEDS ORDERED: NITROGLYCERIN SYRINGE 3 ML ONE ×2 (08:09→11:47)
[2018-09-03] MEDS ORDERED: XYLOCAINE 1% MPF 5 mL ONE (08:18)
[2018-09-03] MEDS ORDERED: NEO SYNEPHRINE ONE ×2 (09:21→10:04)
[2018-09-03] MEDS ORDERED: ROBINUL ONE (09:21)
[2018-09-03] MEDS ORDERED: PHENYLEPHRINE/NS Syringe 1,000 MCG/10 ML IV ONE (09:21)
[2018-09-03] MEDS ORDERED: SUBLIMAZE IV PRN (10:00)
--- NOTE | 2018-09-03 11:34 | Post Operative Note ---
Pre-op diagnosis: left carotid stenosis asymptomatic Post-op diagnosis: same Findings: High-grade bifurcation stenosis greater than 80% successfully removed. Marginal backbleeding therefore shunt utilized. Intraoperative duplex shows excellent flow. Procedure: left carotid endarterectomy, dacron patch, intraoperative duplex scan Anesthesia: GETA Surgeon: ALPHONSO HERNÁNDEZ Melter Caster: GAURANG SEBASTIAN Estimated blood loss: 50-100ml Pathology: list (plaque) Specimen disposition: to lab Condition: stable Disposition: ICU
--- NOTE | 2018-09-03 11:41 | Operative Report ---
Operative Report Operative Report: Date of procedure: 09/03/2018 Pre-operative diagnosis: Asymptomatic left carotid stenosis Post-operative diagnosis: Same Procedure name(s): Left carotid endarterectomy with Dacron patch angioplasty and intraoperative duplex scan Surgeon: Carson Urena MD Lockstitch Lining Setter: Emily MARCUS Anesthesia: Gen. endotracheal EBL: Less than 100 mL Specimen(s): Plaque Complications: None Findings: carotid bifurcation stenosis greater than 80% successfully removed, marginal backbleeding requiring intraoperative shunting. Intraoperative duplex scan satisfactory. Procedure: Patient in the supine position after adequate levels of general endotracheal anesthesia was obtained the patient's head was rotated to the right and the left anterior neck was prepped and draped using standard sterile technique. A standard anterior sternocleidomastoid incision was made and carried down through the subcutaneous tissue the dissection was then carried anterior to the sternocleidomastoid through the platysma and a dissection plane was developed until the carotid sheath was encountered. The sheath was then entered and the jugular vein were swept laterally. The facial vein was divided. The vagus nerve was identified and preserved. Sequentially the common carotid external carotid and then the internal carotid arteries were delineated from the surrounding tissue and encircled using vessel loops. The hypoglossal nerve was identified. The patient was then heparinized and after appropriate delay the vessels were occluded. A longitudinal arteriotomy was then made in the distal common and extended through the internal carotid artery plaque. Backbleeding was assessed and was felt to be marginal therefore an 8 Sam[place] shunt was used. A high grade carotid stenosis was encountered. A standard endarterectomy including an external eversion endarterectomy was performed. Loose debris was removed. A single distal tacking suture was applied. The arteriotomy was then closed using a dacryon patch,double tapered configuration, four needle technique. Prior to completion of the suture line, antegrade and retrograde flushing was performed. The shunt was removed and noted to have been patent. The suture line was then completed and air was evacuated by retrograde ICA filling. The ICA was reoccluded and antegrade flow was initially established into the external carotid artery. It was subsequently released to the ICA. Patient tolerated declamping without difficulty. Hemostasis was obtained using Instat and counterpressure. Intraoperative duplex scan was performed which showed excellent antegrade flow, complete resolution of the high-grade velocities and no loose debris. The incision was then blocked using Marcaine. The incision was then closed using 3-0 Vicryl subcutaneous and 4-0 Monocryl subcuticular. The skin was then reapproximated using Dermabond. The patient was then returned to the supine position and extubated and returned to the recovery room in a stable condition having tolerated the procedure well. Sponge and needle counts were correct.
[2018-09-03] MEDS ORDERED: MORPHINE IV PRN (11:45)
[2018-09-03] MEDS ORDERED: ZOFRAN IV PRN (11:45)
[2018-09-03] MEDS ORDERED: NIPRIDE 50 MG in D5W 248 ML IV SCH (12:00)
[2018-09-03] MEDS ORDERED: INTROPIN DRIP 800 MG/D5W 250 ML 800 MG/250 ML BAG IV SCH (12:00)
[2018-09-03] MEDS: NORCO 5/325 PO PRN (13:42)
--- NOTE | 2018-09-03 13:44 | Post Anesthesia Evaluation ---
- Post Anesthesia Evaluation Patient Participated: Yes Airway Patent: Yes Stable Respiratory Function: Yes Nausea/Vomiting: No Temp > 96.8F: Yes Pain Manageable: Yes Adequeate Hydration: Yes Anesthesia Complications: No Other Comments: neurologically intact, no evidence of hematoma at surgical site, SpO2 >92% with minimal supplemental O2.
[2018-09-03] MEDS: ANCEF/NS 1 GM/50 ML 1 GM/50 ML BAG IV SCH (16:50)
--- NOTE | 2018-09-03 16:53 | Vascular Lab Report ---
Intraoperative ultrasound of left carotid artery INDICATION: Left carotid endarterectomy with Dacron patch. FINDINGS: Intraoperative imaging showed patency of the endarterectomy and Dacron patch site Signer Name: Richard Shannon MD Signed: 09/03/2018 4:49 PM Workstation Name: [id number]
[2018-09-03] MEDS ORDERED: REGLAN IV PRN (17:22)
[2018-09-03] MEDS: NACL 0.9% 1000 ML 1,000 ML IV SCH (21:09)
[2018-09-04] MEDS: ANCEF/NS 1 GM/50 ML 1 GM/50 ML BAG IV SCH (00:11)
[2018-09-04] MEDS: NORCO 5/325 PO PRN (00:15)
[2018-09-04] MEDS: NACL 0.9% 1000 ML 1,000 ML IV SCH (06:48)
[2018-09-04] MEDS ORDERED: COLACE PO SCH (10:00)
[2018-09-04] MEDS ORDERED: PLAVIX PO SCH (10:00)
--- NOTE | 2018-09-04 11:47 | Consultation ---
History of Present Illness - Reason for Consult Consult date: 09/04/18 Post-op management Requesting physician: ALPHONSO HERNÁNDEZ - History of Present Illness 73 y/o female s/p carotid endartectomy. Tolerated procedure well with no complaints. Should be stable for transfer or even discharge. Ambulated well on no oxygen and stable BP. Past History Past Medical History: hyperlipidemia, other (insomnia) Past Surgical History: Other Medications and Allergies Allergies Allergy/AdvReac Type Severity Reaction Status Date / Time surgical tape AdvReac Tears skin Uncoded 08/26/18 18:15 Home Medications Medication Instructions Recorded Confirmed Last Taken Type Zolpidem [Ambien] 10 mg PO QHS 06/08/18 08/26/18 09/02/18 History Aspirin 325 mg PO QDAY #30 tablet 06/09/18 08/26/18 09/02/18 Rx Cimetidine [Tagamet Hb] 400 mg PO PRN PRN 06/13/18 08/26/18 09/02/18 History Clopidogrel [Plavix] 75 mg PO DAILY #30 tablet 06/15/18 08/26/18 09/02/18 Rx Rosuvastatin Calcium [Crestor] 40 mg PO DAILY 08/26/18 08/26/18 09/02/18 History Triamter/Hctz 37.5-25 mg 1 tab PO QDAY 08/26/18 08/26/18 09/02/18 History [Maxzide-25] ALBUTEROL Inhaler (OR & NICU) 2 spray INHALATION BID 09/03/18 09/03/18 09/03/18 05:45 History [ProAir HFA Inhaler] HYDROcodone/APAP 5-325 [[place] 1 each PO Q6HR PRN #14 tablet 09/03/18 Unknown Rx 5/325 mg] Active Meds: Active Medications Acetaminophen/Hydrocodone Bitart ([place] 5/325) 1 each PO Q6H PRN PRN Reason: Pain, Moderate (4-6) Last Admin: 09/04/18 00:15 Dose: 1 each Documented by: Clopidogrel Bisulfate (Plavix) 75 mg PO QDAY [facility] Last Admin: 09/04/18 09:35 Dose: 75 mg Documented by: Docusate Sodium (Colace) 100 mg PO BID [facility] Last Admin: 09/04/18 09:35 Dose: Not Given Documented by: Fentanyl (Sublimaze) 100 mcg IV ONCE PRN PRN Reason: sedation for a-line placement Sodium Chloride (Nacl 0.9% 1000 Ml) 1,000 mls @ 100 mls/hr IV DIRECT ALAN Last Admin: 09/04/18 06:48 Dose: 100 mls/hr Documented by: Dopamine HCl/Dextrose (Intropin Drip 800 Mg/D5w 250 Ml) 800 mg in 250 mls @ 2.551 mls/hr IV TITR ALAN; Protocol Sodium Nitroprusside 50 mg/ (Dextrose) 250 mls @ 5.103 mls/hr IV TITR ALAN; Protocol Metoclopramide HCl (Reglan) 10 mg IV Q8HR PRN PRN Reason: Nausea And Vomiting Last Admin: 09/03/18 17:34 Dose: 10 mg Documented by: Morphine Sulfate (Morphine) 2 mg IV Q4H PRN PRN Reason: Pain , Severe (7-10) Ondansetron HCl (Zofran) 4 mg IV Q8H PRN PRN Reason: Nausea And Vomiting Last Admin: 09/03/18 13:41 Dose: 4 mg Documented by: Review of Systems All systems: negative Exam - Constitutional Vitals: Temp Pulse Resp BP Pulse Ox 98.3 F 121 H 21 147/75 95 09/04/18 08:16 09/04/18 10:00 09/04/18 08:00 09/04/18 10:00 09/04/18 10:00 General appearance: Present: no acute distress, well-nourished - EENT Eyes: Present: PERRL, EOM intact ENT: hearing intact, clear oral mucosa - Neck Neck: Present: supple, normal ROM - Respiratory Respiratory effort: normal Respiratory: bilateral: CTA - Cardiovascular Rhythm: regular Heart Sounds: Present: S1 & S2 - Extremities Extremities: no ischemia, pulses symmetrical, No edema, normal color - Abdominal General gastrointestinal: Present: soft, non-tender, normal bowel sounds Female genitourinary: Present: deferred - Rectal Rectal Exam: deferred - Integumentary Integumentary: Present: clear, warm, dry - Musculoskeletal Musculoskeletal: strength equal bilaterally - Psychiatric Psychiatric: appropriate mood/affect Results - Labs CBC & Chem 7: 08/31/18 10:25 08/31/18 10:25 Assessment and Plan 73 y/o status post carotid From a critical care standpoint, stable. Agree with transfer out of unit vs discharge to home.
--- NOTE | 2018-09-04 18:18 | Short Stay Summary ---
Short Stay Documentation Date of service: 09/04/18 Narrative H&P: admitted to the hospital and operative suite for a left carotid endarterectomy 3 months after sustaining a right hemispheric CVA. - History Principal diagnosis: carotid stenosis H&P: obtained from office Past Medical History: hyperlipidemia, other (insomnia) Past Surgical History: Other - Allergies and Medications Current Medications: Allergies surgical tape Adverse Reaction (Uncoded 08/26/18 18:15) Tears skin Paper tape ok Home Medications Medication Instructions Recorded Confirmed Last Taken Type Zolpidem [Ambien] 10 mg PO QHS 06/08/18 08/26/18 09/02/18 History Aspirin 325 mg PO QDAY #30 tablet 06/09/18 08/26/18 09/02/18 Rx Cimetidine [Tagamet Hb] 400 mg PO PRN PRN 06/13/18 08/26/18 09/02/18 History Clopidogrel [Plavix] 75 mg PO DAILY #30 tablet 06/15/18 08/26/18 09/02/18 Rx Rosuvastatin Calcium [Crestor] 40 mg PO DAILY 08/26/18 08/26/18 09/02/18 History Triamter/Hctz 37.5-25 mg 1 tab PO QDAY 08/26/18 08/26/18 09/02/18 History [Maxzide-25] ALBUTEROL Inhaler (OR & NICU) 2 spray INHALATION BID 09/03/18 09/03/18 09/03/18 05:45 History [ProAir HFA Inhaler] HYDROcodone/APAP 5-325 [[place] 1 each PO Q6HR PRN #14 tablet 09/03/18 Unknown Rx 5/325 mg] Active Medications Acetaminophen/Hydrocodone Bitart ([place] 5/325) 1 each PO Q6H PRN PRN Reason: Pain, Moderate (4-6) Last Admin: 09/04/18 00:15 Dose: 1 each Documented by: Clopidogrel Bisulfate (Plavix) 75 mg PO QDAY [facility] Last Admin: 09/04/18 09:35 Dose: 75 mg Documented by: Docusate Sodium (Colace) 100 mg PO BID [facility] Last Admin: 09/04/18 09:35 Dose: Not Given Documented by: Fentanyl (Sublimaze) 100 mcg IV ONCE PRN PRN Reason: sedation for a-line placement Sodium Chloride (Nacl 0.9% 1000 Ml) 1,000 mls @ 100 mls/hr IV DIRECT ALAN Last Admin: 09/04/18 06:48 Dose: 100 mls/hr Documented by: Dopamine HCl/Dextrose (Intropin Drip 800 Mg/D5w 250 Ml) 800 mg in 250 mls @ 2.551 mls/hr IV TITR ALAN; Protocol Sodium Nitroprusside 50 mg/ (Dextrose) 250 mls @ 5.103 mls/hr IV TITR ALAN; Protocol Metoclopramide HCl (Reglan) 10 mg IV Q8HR PRN PRN Reason: Nausea And Vomiting Last Admin: 09/03/18 17:34 Dose: 10 mg Documented by: Morphine Sulfate (Morphine) 2 mg IV Q4H PRN PRN Reason: Pain , Severe (7-10) Ondansetron HCl (Zofran) 4 mg IV Q8H PRN PRN Reason: Nausea And Vomiting Last Admin: 09/03/18 13:41 Dose: 4 mg Documented by: - Physical exam Extremities: no ischemia, pulses symmetrical, No edema, normal color - Brief post op/procedure progress note Date of procedure: 09/04/18 Procedure: Pre-operative diagnosis: Asymptomatic left carotid stenosis Post-operative diagnosis: Same Procedure name(s): Left carotid endarterectomy with Dacron patch angioplasty and intraoperative duplex scan Surgeon: Carson Urena MD Rental Clerk: Emily Claros ENGINEERING TECHNOLOGY INSTRUCTOR-Eli Anesthesia: Gen. endotracheal EBL: Less than 100 mL Specimen(s): Plaque Complications: None Findings: carotid bifurcation stenosis greater than 80% successfully removed, marginal backbleeding requiring intraoperative shunting. Intraoperative duplex scan satisfactory. Procedure: Patient in the supine position after adequate levels of general endotracheal anesthesia was obtained the patient's head was rotated to the right and the left anterior neck was prepped and draped using standard sterile technique. A standard anterior sternocleidomastoid incision was made and carried down through the subcutaneous tissue the dissection was then carried anterior to the sternocleidomastoid through the platysma and a dissection plane was developed until the carotid sheath was encountered. The sheath was then entered and the jugular vein were swept laterally. The facial vein was divided. The vagus nerve was identified and preserved. Sequentially the common carotid external carotid and then the internal carotid arteries were delineated from the surrounding tissue and encircled using vessel loops. The hypoglossal nerve was identified. The patient was then heparinized and after appropriate delay the vessels were occluded. A longitudinal arteriotomy was then made in the distal common and extended through the internal carotid artery plaque. Backbleeding was assessed and was felt to be marginal therefore an 8 [place] shunt was used. A high grade carotid stenosis was encountered. A standard endarterectomy including an external eversion endarterectomy was performed. Loose debris was removed. A single distal tacking suture was applied. The arteriotomy was then closed using a dacryon patch,double tapered configuration, four needle technique. Prior to completion of the suture line, antegrade and retrograde flushing was performed. The shunt was removed and noted to have been patent. The suture line was then completed and air was evacuated by retrograde ICA filling. The ICA was reoccluded and antegrade flow was initially established into the external carotid artery. It was subsequently released to the ICA. Patient tolerated declamping without difficulty. Hemostasis was obtained using Instat and counterpressure. Intraoperative duplex scan was performed which showed excellent antegrade flow, complete resolution of the high-grade velocities and no loose debris. The incision was then blocked using Marcaine. The incision was then closed using 3-0 Vicryl subcutaneous and 4-0 Monocryl subcuticular. The skin was then reapproximated using Dermabond. The patient was then returned to the supine position and extubated and returned to the recovery room in a stable condition having tolerated the procedure well. Sponge and needle counts were correct. - Hospital course Hospital course: post op did well with no neuro deficits. blood pressure wll controled and minimal post operative pain. minor post anesthesia nausea resolved.Incision witjh out significant swelling. - Disposition Condition at discharge: Good Disposition: DC-01 TO HOME OR SELFCARE - Discharge Diagnoses (1) COPD (chronic obstructive pulmonary disease) Status: Chronic Qualifiers: Emphysema type: unspecified Qualified Code(s): J43.9 - Emphysema, unspecified (2) Carotid stenosis with cerebral infarction less than 8 weeks ago Status: Chronic Comment: treated with left CEA Short Stay Discharge Plan Activity: advance as tolerated, no driving until cleared by PCP (no driving for one week) Weight Bearing Status: Full Weight Bearing Diet: low fat Wound: keep clean and dry (ok to get wet in am), other Special Instructions: no heavy lifting Follow up with: RC HUBER MD [Primary Care Provider] - 7 Days CARSON URENA MD [Staff Physician] - 14 Days Prescriptions: HYDROcodone/APAP 5-325 [[place] 5/325 mg] 1 each PO Q6HR PRN #14 tablet PRN Reason: Pain, Moderate (4-6)
[2018-09-04 18:55] VITALS: BP 126/51
== END 2018-09-04 16:50 | disposition home or self-care (01) | DRG 39 ==
LOC: 3A 06:28 → CC1 11:58
PROVIDERS: ADMIT Surgery Vascular Surgery; ATTEND Surgery Vascular Surgery
PROC: 03CL0ZZ Extirpation of Matter from Left Internal Carotid Artery, Open Approach (ICD-10-PCS; principal; 2018-09-03)
PROC: 03UL0JZ Supplement Left Internal Carotid Artery with Synthetic Substitute, Open Approach (ICD-10-PCS; 2018-09-03)
DX: I65.22 Occlusion and stenosis of left carotid artery (principal); F17.210 Nicotine dependence, cigarettes, uncomplicated; I25.10 Atherosclerotic heart disease of native coronary artery without angina pectoris; I10 Essential (primary) hypertension; K21.9 Gastro-esophageal reflux disease without esophagitis; I27.20 Pulmonary hypertension, unspecified; E78.5 Hyperlipidemia, unspecified; J43.9 Emphysema, unspecified; Z86.73 Personal history of transient ischemic attack (TIA), and cerebral infarction without residual deficits
CPT/HCPCS: 36415; 36620; 37252; 80048; 85025; 88304; 88311; 94760; G0378; C1768; J0690; J1100; J1265; J1644; J2370; J2405; J2440; J2704; J2720; J2765; J3010; J7030; J7040; J7120

== ENCOUNTER 2021-05-08 07:05 | Inpatient (IN) | payer MEDICARE ==
[2021-05-08] MEDS ORDERED: FUROSEMIDE 40 MG/4 ML INJ IV ONE (07:07)
--- NOTE | 2021-05-08 07:13 | Emergency Department Report ---
ED Shortness of Breath HPI - General Stated Complaint: DIFFICULTY BREATHING Time Seen by Provider: 05/08/21 07:07 Source: EMS - History of Present Illness Initial Comments: Patient is 76-year-old female with history of congestive heart failure, COPD and hypertension. Patient brought to the emergency room via EMS from home for e valuation of difficulty in breathing for approximately 7 days. Family stated that patient symptoms getting worse. Patient is on home oxygen 2 L/min. EMS reported that patient initial oxygen saturation was 89% on 2L improved to 95% on BiPAP. MD Complaint: shortness of breath -: days(s) (6) - Related Data Home Medications Medication Instructions Recorded Confirmed Last Taken Zolpidem (Nf) [Ambien (Nf)] 10 mg PO QHS 06/08/18 08/26/18 09/02/18 Cimetidine [Tagamet Hb] 400 mg PO PRN PRN 06/13/18 08/26/18 09/02/18 Rosuvastatin Calcium [Crestor] 40 mg PO DAILY 08/26/18 08/26/18 09/02/18 Triamter/Hctz 37.5-25 mg 1 tab PO QDAY 08/26/18 08/26/18 09/02/18 [Maxzide-25] Albuterol Mdi (or & Nicu Only) 2 spray INHALATION BID 09/03/18 09/03/18 09/03/18 05:45 [ProAir HFA Inhaler] Previous Rx's Medication Instructions Recorded Last Taken Type Aspirin 325 mg PO QDAY #30 tablet 06/09/18 09/02/18 Rx Clopidogrel [Plavix] 75 mg PO DAILY #30 tablet 06/15/18 09/02/18 Rx HYDROcodone/APAP 5-325 [[place] 1 each PO Q6HR PRN #14 tablet 09/03/18 Unknown Rx 5/325 mg] Clopidogrel [Plavix] 75 mg PO QDAY tablet 09/04/18 Unknown Rx Docusate Sodium [Colace CAP] 100 mg PO BID capsule 09/04/18 Unknown Rx Allergies Allergy/AdvReac Type Severity Reaction Status Date / Time surgical tape AdvReac Tears skin Uncoded 05/08/21 07:19 ED Review of Systems ROS: Stated complaint: DIFFICULTY BREATHING Other details as noted in HPI Comment: All other systems reviewed and negative Constitutional: denies: chills, fever Respiratory: cough, orthopnea, shortness of breath, SOB with exertion, SOB at rest ED Past Medical Hx - Past Medical History Hx Hypertension: Yes Hx CVA: Yes Hx Heart Attack/AMI: No Hx GERD: Yes Hx Liver Disease: No Hx Renal Disease: No Hx Arthritis: Yes Hx Seizures: No Hx COPD: Yes Hx HIV: No - Surgical History Hx Breast Surgery: Yes (Right breast due to CA reoccurance) - Social History Smoking Status: Current Every Day Smoker - Medications Home Medications: Home Medications Medication Instructions Recorded Confirmed Last Taken Type Zolpidem (Nf) [Ambien (Nf)] 10 mg PO QHS 06/08/18 08/26/18 09/02/18 History Aspirin 325 mg PO QDAY #30 tablet 06/09/18 08/26/18 09/02/18 Rx Cimetidine [Tagamet Hb] 400 mg PO PRN PRN 06/13/18 08/26/18 09/02/18 History Clopidogrel [Plavix] 75 mg PO DAILY #30 tablet 06/15/18 08/26/18 09/02/18 Rx Rosuvastatin Calcium [Crestor] 40 mg PO DAILY 08/26/18 08/26/18 09/02/18 History Triamter/Hctz 37.5-25 mg 1 tab PO QDAY 08/26/18 08/26/18 09/02/18 History [Maxzide-25] Albuterol Mdi (or & Nicu Only) 2 spray INHALATION BID 09/03/18 09/03/18 09/03/18 05:45 History [ProAir HFA Inhaler] HYDROcodone/APAP 5-325 [[place] 1 each PO Q6HR PRN #14 tablet 09/03/18 Unknown Rx 5/325 mg] Clopidogrel [Plavix] 75 mg PO QDAY tablet 09/04/18 Unknown Rx Docusate Sodium [Colace CAP] 100 mg PO BID capsule 09/04/18 Unknown Rx ED Physical Exam - General General appearance: obtunded, in distress (Moderate respiratory distress) - Head Head exam: Present: atraumatic, normocephalic - Eye Eye exam: Present: normal appearance - Neck Neck exam: Present: normal inspection, full ROM. Absent: tenderness, meningismus - Respiratory Respiratory exam: Present: respiratory distress, rales, decreased breath sounds. Absent: wheezes - Cardiovascular Cardiovascular Exam: Present: regular rate, normal rhythm, normal heart sounds - GI/Abdominal GI/Abdominal exam: Present: soft, normal bowel sounds. Absent: distended, tenderness, guarding, rebound, rigid, organomegaly, mass, bruit, pulsatile mass, hernia - Extremities Exam Extremities exam: Present: pedal edema - Back Exam Back exam: Present: normal inspection, full ROM. Absent: CVA tenderness (R), CVA tenderness (L) - Neurological Exam Neurological exam: Present: altered - Skin Skin exam: Present: warm ED Course Vital Signs 05/08/21 05/08/21 05/08/21 07:14 07:20 07:30 Pulse Rate 129 H 132 H 126 H Respiratory 36 H 31 H 33 H Rate Blood Pressure 163/79 163/79 O2 Sat by Pulse 100 99 100 Oximetry 05/08/21 05/08/21 05/08/21 07:46 07:57 08:00 Pulse Rate 135 H 130 H Respiratory 25 H 33 H Rate Blood Pressure 138/63 113/49 O2 Sat by Pulse 99 100 100 Oximetry 05/08/21 08:16 Pulse Rate 125 H Respiratory 30 H Rate Blood Pressure 99/45 O2 Sat by Pulse 100 Oximetry ED Medical Decision Making - Lab Data Result diagrams: 05/08/21 07:37 05/08/21 07:37 - EKG Data -: EKG Interpreted by Tn EKG shows normal: sinus rhythm Rate: tachycardia - EKG Data 05/08/21 08:41 Right bundle branch block. - Radiology Data Radiology results: report reviewed - Medical Decision Making Patient is 76-year-old female with history of congestive heart failure, COPD and hypertension. Patient brought to the emergency room via EMS from home for evaluation of difficulty in breathing for approximately 7 days. Family stated that patient symptoms getting worse. Patient is on home oxygen 2 L/min. EMS reported that patient initial oxygen saturation was 89% on 2L improved to 95% on BiPAP. Patient continued on BiPAP. Labs reviewed and showed leukocytosis of 18,000. Potassium was 3. Chest x-ray showed bilateral infiltrate concerning for pneumonia. Patient received cefepime and vancomycin. Patient also received potassium chloride 20 mEq IV. I discussed the patient with Dr. Norris, she agreed to admit the patient to hospital for further management. Critical Care Time: Yes Critical care time in (mins) excluding proc time.: 35 Critical care attestation.: If time is entered above; I have spent that time in minutes in the direct care of this critically ill patient, excluding procedure time. ED Disposition Clinical Impression: Acute respiratory failure with hypoxia, Bilateral pneumonia, Acute hypokalemia Disposition: 09 ADMITTED INPATIENT Is pt being admited?: Yes Condition: Stable Instructions: Bacterial Pneumonia (ED)
[2021-05-08 07:49] LABS: Hemoglobin 15.3 gm/dl (10.1-14.3); Mean Corpuscular HGB Conc 33 % (30-34); Mean Corpuscular Volume 92 fl (79-97); Platelet Count 325 K/mm3 (140-440); Red Blood Count 5.09 M/mm3 (3.65-5.03); Red Cell Distribution Width 14.9 % (13.2-15.2)
[2021-05-08 08:02] LABS: INR 0.87 (0.87-1.13)
[2021-05-08 08:07] LABS: BUN/Creatinine Ratio 36; Blood Urea Nitrogen 18 mg/dL (7-17); Hemolysis Index 5
[2021-05-08 08:10] LABS: Alanine Aminotransferase 15 units/L (7-56)
[2021-05-08 08:12] LABS: Bilirubin,Direct < 0.2 mg/dL (0-0.2)
--- NOTE | 2021-05-08 08:16 | XRay Report ---
CHEST 1 VIEW 05/08/2021 7:35 AM INDICATION / CLINICAL INFORMATION: Dyspnea. COMPARISON: None available. FINDINGS: SUPPORT DEVICES: None. HEART / MEDIASTINUM: Normal size of the cardiac silhouette with moderate aortic atherosclerosis. LUNGS / PLEURA: Right basilar airspace opacities are noted with interstitial opacity seen along the l eft lung base. Emphysematous changes are seen along the upper lungs. No significant pleural effusion. No pneumothorax. ADDITIONAL FINDINGS: No significant additional findings. IMPRESSION: 1. Suspected right basilar pneumonia with possible pneumonia also seen along the left lung base. Cont inued radiographic follow-up to resolution is recommended. Signer Name: Nnamdi Sorenson MD Signed: 05/08/2021 8:12 AM Workstation Name: [id number]
[2021-05-08] MEDS ORDERED: CEFEPIME/NS 1 GM/100 ML 1 GM/100 ML BAG IV ONE (08:27)
[2021-05-08] MEDS ORDERED: SODIUM CHLORIDE 0.9% 1000 ML 1,000 ML IV ONE (08:27)
[2021-05-08] MEDS ORDERED: VANCOMYCIN/NS 1 GM/250 ML 1 GM/250 ML BAG IV ONE (08:27)
[2021-05-08 08:34] LABS: Band Neutrophils # (Manual) 0.2 K/mm3; Basophils % (Manual) 0 % (0.0-1.8); Eosinophils % (Manual) 0 % (0.0-4.3); Total Cells Counted 100
[2021-05-08 08:35] LABS: Anisocytosis 1+; Platelet Estimate Consistent w Auto; Toxic Vacuolation Few
[2021-05-08 08:36] LABS: ABG Base Excess 2.7 mmol/L (-2.0-3.0); ABG HCO3 33.4 mmol/L (20.0-26.0); ABG Methemoglobin 0.6 % (0.0-1.5); ABG Oxygen Saturation 99.5 % (95.0-99.0); ABG PCO2 81.9 mm Hg; ABG PH 7.228 pH Units (7.350-7.450)
[2021-05-08 08:37] LABS: ABG PO2 315.9 mm Hg (80.0-90.0)
[2021-05-08 09:01] LABS: Calcium Oxalate Crystals,Urine 2+
[2021-05-08] MEDS ORDERED: LACTATED RINGERS 1,000 ML IV ONE ×3 (09:07→21:37)
[2021-05-08] MEDS ORDERED: dexAMETHasone 4 MG/ML VIAL IV ONE (09:09)
[2021-05-08] MEDS ORDERED: MORPHINE 4 MG/1 ML INJ IV PRN (09:10)
[2021-05-08 09:38] LABS: Bilirubin,Urine Negative (Negative); Color,Urine Yellow (Yellow)
[2021-05-08 09:39] LABS: Blood,Urine Trace (Negative); Urobilinogen,Urine < 2.0 mg/dL (<2.0)
[2021-05-08] MEDS: POTASSIUM CHLORIDE 10 MEQ 10 MEQ/100 ML BAG IV SCH ×2 (09:40→10:47)
[2021-05-08] MEDS ORDERED: ENOXAPARIN 30 MG/0.3 ML INJ SUB-Q SCH (10:00)
[2021-05-08] MEDS ORDERED: ONDANSETRON 4 MG/2 ML INJ IV PRN (10:00)
[2021-05-08] MEDS ORDERED: AZITHROMYCIN/NS 500 MG/250 ML 500 MG/250 ML BAG IV SCH (10:00)
[2021-05-08] MEDS ORDERED: VANCOMYCIN PHARMACY TO DOSE IV SCH (10:00)
--- NOTE | 2021-05-08 11:00 | Electrocardiograph Report ---
[facility] Test Date: 2021-05-08 Test Time: 07:17:13 Pat Name: LEBRON PARHAM Department: Room: A459 Gender: F Internet Salesperson: AMANDA : 1945 Requested By: LINWOOD PRIETO Order Number: [id number] Reading MD: Christopher Parekh Measurements Intervals [place] Rate: 129 P: 14 OR: 107 QRS: 62 QRSD: 130 T: -21 QT: 325 QTc: 477 Interpretive Statements Sinus tachycardia Right bundle branch block No previous ECG available for comparison Electronically Signed On 05-08-2021 10:59:57 EDT by Christopher Parekh
--- NOTE | 2021-05-08 11:45 | Consultation ---
History of Present Illness - Reason for Consult Consult date: 05/08/21 abx management Requesting physician: RAJI EDWARDS - History of Present Illness The patient is a 76-year-old female with CHF, COPD, hypertension admitted from home with worsening shortness of breath over the last week. Upon evaluation in the ER, noted to be hypoxic and now placed on BiPAP. Labs revealed leukocytosis of 18.7, ABG showed pH of 7.2. UA was not suggestive of UTI. Chest x-ray reveals bibasilar pneumonia worse on the right side. Daughter is present at bedside who provides some of the history, patient has been worsening over the last 10 days, initially she was admitted for 1 day at [facility] with pneumonia and sent home, then readmitted to [place] and was discharged home after a few days. Review of Systems: Cannot be obtained, drowsy on BiPAP Past History Social history: other (drowsy, cannot provide history) Family history: other (drowsy, cannot provide history) Medications and Allergies Allergies Allergy/AdvReac Type Severity Reaction Status Date / Time surgical tape AdvReac Tears skin Uncoded 05/08/21 07:19 Home Medications Medication Instructions Recorded Confirmed Last Taken Type Zolpidem (Nf) [Ambien (Nf)] 10 mg PO QHS 06/08/18 08/26/18 09/02/18 History Aspirin 325 mg PO QDAY #30 tablet 06/09/18 08/26/18 09/02/18 Rx Cimetidine [Tagamet Hb] 400 mg PO PRN PRN 06/13/18 08/26/18 09/02/18 History Clopidogrel [Plavix] 75 mg PO DAILY #30 tablet 06/15/18 08/26/18 09/02/18 Rx Rosuvastatin Calcium [Crestor] 40 mg PO DAILY 08/26/18 08/26/18 09/02/18 History Triamter/Hctz 37.5-25 mg 1 tab PO QDAY 08/26/18 08/26/18 09/02/18 History [Maxzide-25] Albuterol Mdi (or & Nicu Only) 2 spray INHALATION BID 09/03/18 09/03/18 09/03/18 05:45 History [ProAir HFA Inhaler] HYDROcodone/APAP 5-325 [[place] 1 each PO Q6HR PRN #14 tablet 09/03/18 Unknown Rx 5/325 mg] Clopidogrel [Plavix] 75 mg PO QDAY tablet 09/04/18 Unknown Rx Docusate Sodium [Colace CAP] 100 mg PO BID capsule 09/04/18 Unknown Rx Active Meds: Active Medications Acetaminophen (Acetaminophen 325 Mg Tab) 650 mg PO Q4H PRN PRN Reason: Pain MILD(1-3)/Fever >100.5/WHITE Dexamethasone (Dexamethasone 4 Mg/Ml Vial) 8 mg IV DAILY [facility] Enoxaparin Sodium (Enoxaparin 40 Mg/0.4 Ml Inj) 40 mg SUB-Q QDAY@1000 ALAN Sodium Chloride (Nacl 0.9% 1000 Ml) 1,000 mls @ 250 mls/hr IV ONCE ONE Stop: 05/08/21 12:26 Last Admin: 05/08/21 09:30 Dose: 250 mls/hr Azithromycin (Zithromax/Ns) 500 mg in 250 mls @ 250 mls/hr IV Q24H [facility] Stop: 05/13/21 09:59 Cefepime HCl (Cefepime/Ns 1 Gm/100 Ml) 1 gm in 100 mls @ 200 mls/hr IV Q8H [facility]; Protocol Stop: 05/12/21 14:59 Vancomycin HCl 750 mg/ Sodium (Chloride) 265 mls @ 166.667 mls/hr IV Q24H [facility] Lactated Ringer's (Lactated Ringers) 1,000 mls @ 999 mls/hr IV BOLUS ONE Stop: 05/08/21 12:06 Last Admin: 05/08/21 11:30 Dose: 999 mls/hr Morphine Sulfate (Morphine 2 Mg/1 Ml Inj) 2 mg IV Q4H PRN PRN Reason: Pain , Severe (7-10) Ondansetron HCl (Ondansetron 4 Mg/2 Ml Inj) 4 mg IV Q8H PRN PRN Reason: Nausea And Vomiting Oxycodone/Acetaminophen (Oxycodone /Acetaminophen 5-325mg Tab) 1 tab PO Q6H PRN PRN Reason: Pain, Moderate (4-6) Sodium Chloride (Sodium Chloride 0.9% 10 Ml Flush Syringe) 10 ml IV BID [facility] Last Admin: 05/08/21 10:20 Dose: 10 ml Sodium Chloride (Sodium Chloride 0.9% 10 Ml Flush Syringe) 10 ml IV PRN PRN PRN Reason: LINE FLUSH Physical Examination - Physical Exam Narrative exam: Physical Exam: Constitutional: drowsy, on BiPAP Head, Ears, Nose: Normocephalic, atraumatic. External ears, nose normal Eyes: Conjunctivae/corneas clear. No icterus. No ptosis. Neck: Supple, no meningeal signs Oral: BiPAP Cardiovascular: S1, S2 + Respiratory: AE fair b/l GI: Soft, non-tender; bowel sounds normal. No peritoneal signs Musculoskeletal: trace pedal edema, no cyanosis Skin: No rash or abscess Hem/Lymphatic: No palpable cervical or supraclavicular nodes. No lymphangitis Psych: no agitation Neurological: drowsy, on BiPAP - Constitutional Vitals: Vital Signs Temp Pulse Resp BP Pulse Ox 107 H 27 H 91/51 97 05/08/21 10:46 05/08/21 10:46 05/08/21 10:46 05/08/21 10:46 Results - Labs CBC & Chem 7: 05/08/21 07:37 05/08/21 07:37 Labs: Abnormal lab results 05/08/21 05/08/21 05/08/21 Range/Units 07:37 07:37 07:37 WBC 18.7 H (4.5-11.0) K/mm3 RBC 5.09 H (3.65-5.03) M/mm3 Hgb 15.3 H (10.1-14.3) gm/dl Hct 47.0 H (30.3-42.9) % Seg Neuts % (Manual) 93.0 H (40.0-70.0) % Lymphocytes % (Manual) 5.0 L (13.4-35.0) % Seg Neutrophils # Man 17.4 H (1.8-7.7) K/mm3 Lymphocytes # (Manual) 0.9 L (1.2-5.4) K/mm3 APTT 23.0 L (24.2-36.6) Sec. ABG pH (7.350-7.450) pH Units ABG pO2 (80.0-90.0) mm Hg ABG HCO3 (20.0-26.0) mmol/L ABG O2 Saturation (95.0-99.0) % Potassium 3.0 L (3.6-5.0) mmol/L Chloride 93.6 L (98-107) mmol/L Carbon Dioxide 32 H (22-30) mmol/L BUN 18 H (7-17) mg/dL Creatinine 0.5 L (0.6-1.2) mg/dL Glucose 179 H (65-100) mg/dL 05/08/21 Range/Units 08:01 WBC (4.5-11.0) K/mm3 RBC (3.65-5.03) M/mm3 Hgb (10.1-14.3) gm/dl Hct (30.3-42.9) % Seg Neuts % (Manual) (40.0-70.0) % Lymphocytes % (Manual) (13.4-35.0) % Seg Neutrophils # Man (1.8-7.7) K/mm3 Lymphocytes # (Manual) (1.2-5.4) K/mm3 APTT (24.2-36.6) Sec. ABG pH 7.228 L (7.350-7.450) pH Units ABG pO2 315.9 H (80.0-90.0) mm Hg ABG HCO3 33.4 H (20.0-26.0) mmol/L ABG O2 Saturation 99.5 H (95.0-99.0) % Potassium (3.6-5.0) mmol/L Chloride (98-107) mmol/L Carbon Dioxide (22-30) mmol/L BUN (7-17) mg/dL Creatinine (0.6-1.2) mg/dL Glucose (65-100) mg/dL - Imaging and Cardiology Chest x-ray: report reviewed, image reviewed (b/l PNA, R>L) Assessment and Plan Cultures: 05/08/2021 blood culture: In process 05/08/2021 urine culture: In process A/P: 76-year-old female with CHF, COPD, hypertension admitted from home with worsening shortness of breath over the last week to 10 days, , initially she was admitted for 1 day at [facility] with pneumonia and sent home, then readmitted to [place] and was discharged home after a few days now with: #Severe sepsis, secondary to pneumonia #Acute hypoxic respiratory failure: Requiring BiPAP. Recs: -Empiric cefepime, vancomycin -MRSA nasal PCR, procalcitonin ordered -Follow-up cultures -Guarded prognosis Ruthann Odom MD, FACP, [facility] ([facility] O: [phone] F: [phone] C: [phone]
[2021-05-08] MEDS: MORPHINE 2 MG/1 ML INJ IV PRN (12:12)
[2021-05-08] MEDS: ENOXAPARIN 40 MG/0.4 ML INJ SUB-Q SCH (12:57)
[2021-05-08] MEDS: dexAMETHasone 4 MG/ML VIAL IV SCH (12:58)
[2021-05-08 14:37] LABS: ABG Base Excess 0.7 mmol/L (-2.0-3.0); ABG HCO3 30.1 mmol/L (20.0-26.0); ABG Methemoglobin 0.7 % (0.0-1.5); ABG Oxygen Saturation 97.7 % (95.0-99.0); ABG PCO2 71.6 mm Hg; ABG PH 7.242 pH Units (7.350-7.450); ABG PO2 119.4 mm Hg (80.0-90.0)
[2021-05-08] MEDS: CEFEPIME/NS 1 GM/100 ML 1 GM/100 ML BAG IV SCH ×2 (14:52→22:27)
[2021-05-08] MEDS ORDERED: SODIUM CHLORIDE 0.9% 500 ML 500 ML ONE (15:05)
[2021-05-08] MEDS: LORazepam 2 MG/ML VIAL IV PRN (15:41)
--- NOTE | 2021-05-08 15:48 | History and Physical Report ---
History of Present Illness Date of examination: 05/08/21 Date of admission: 05/08/21 09:10 Chief complaint: Shortness of breath History of present illness: Patient is a 76-year-old female past medical history of congestive heart failure, COPD (on 2-3 L nasal cannula at home), hypertension who has been experiencing multiple episodes of shortness of breath complicated by hypoxia resulting in hospital admission and treatment with antibiotics before eventual discharge. The patient's daughter endorses the patient being admitted to 2 other [facility] ([facility] and [place]) for similar presentations. The patient was last discharged from the hospital on 05/03/2021 (at [facility]). According to the patient's daughter, she has been having worsening symptoms, and the patient was transported via EMS to [facility]. In the ED, the patient was found to be hypotensive (99/45), heart rate 125, respiratory rate 30, ABG 7.22/81.9/315 on 100% FiO2 (BiPAP). Patient was found to have unremarkable lactic acid and pro BNP. Patient was initiated on IV fluids, cefepime, vancomycin. Chest x-ray was suggestive of right basilar pneumonia. The patient is being admitted for severe sepsis secondary to pneumonia complicated by acute hypoxic respiratory failure. Past History Past Medical History: COPD (on 2-3L nasal cannula), heart failure, hypertension Past Surgical History: mastectomy Social history: , lives with family, AND/DNR-allow natural Family history: hypertension Medications and Allergies Allergies Allergy/AdvReac Type Severity Reaction Status Date / Time surgical tape AdvReac Tears skin Uncoded 05/08/21 07:19 Home Medications Medication Instructions Recorded Confirmed Last Taken Type Zolpidem (Nf) [Ambien (Nf)] 10 mg PO QHS 06/08/18 08/26/18 1 Week Ago History ~05/01/21 Aspirin 325 mg PO QDAY #30 tablet 06/09/18 05/08/21 05/07/21 08:00 Rx Cimetidine [Tagamet Hb] 400 mg PO PRN PRN 06/13/18 05/08/21 1 Year Ago History ~05/08/20 Clopidogrel [Plavix] 75 mg PO DAILY #30 tablet 06/15/18 05/08/21 1 Year Ago Rx ~05/08/20 Rosuvastatin Calcium [Crestor] 40 mg PO DAILY 08/26/18 05/08/21 1 Year Ago History ~05/08/20 Triamter/Hctz 37.5-25 mg 1 tab PO QDAY 08/26/18 05/08/21 05/07/21 08:00 History [Maxzide-25] Albuterol Mdi (or & Nicu Only) 2 spray INHALATION BID 09/03/18 05/08/21 05/07/21 08:00 History [ProAir HFA Inhaler] HYDROcodone/APAP 5-325 [[place] 1 each PO Q6HR PRN #14 tablet 09/03/18 05/08/21 1 Year Ago Rx 5/325 mg] ~05/08/20 Clopidogrel [Plavix] 75 mg PO QDAY tablet 09/04/18 05/08/21 1 Year Ago Rx ~05/08/20 Docusate Sodium [Colace CAP] 100 mg PO BID capsule 09/04/18 05/08/21 1 Year Ago Rx ~05/08/20 Active Meds: Active Medications Acetaminophen (Acetaminophen 325 Mg Tab) 650 mg PO Q4H PRN PRN Reason: Pain MILD(1-3)/Fever >100.5/WHITE Dexamethasone (Dexamethasone 4 Mg/Ml Vial) 8 mg IV DAILY [facility] Last Admin: 05/08/21 12:58 Dose: Not Given Enoxaparin Sodium (Enoxaparin 40 Mg/0.4 Ml Inj) 40 mg SUB-Q QDAY@1000 [facility] Last Admin: 05/08/21 12:57 Dose: Not Given Cefepime HCl (Cefepime/Ns 1 Gm/100 Ml) 1 gm in 100 mls @ 200 mls/hr IV Q8H [facility]; Protocol Stop: 05/12/21 14:59 Last Admin: 05/08/21 14:52 Dose: 200 mls/hr Vancomycin HCl 750 mg/ Sodium (Chloride) 265 mls @ 166.667 mls/hr IV Q24H [facility] Lorazepam (Lorazepam 2 Mg/Ml Vial) 1 mg IV Q8H PRN PRN Reason: Agitation Last Admin: 05/08/21 15:41 Dose: 1 mg Morphine Sulfate (Morphine 2 Mg/1 Ml Inj) 2 mg IV Q4H PRN PRN Reason: Pain , Severe (7-10) Last Admin: 05/08/21 12:12 Dose: 2 mg Ondansetron HCl (Ondansetron 4 Mg/2 Ml Inj) 4 mg IV Q8H PRN PRN Reason: Nausea And Vomiting Oxycodone/Acetaminophen (Oxycodone /Acetaminophen 5-325mg Tab) 1 tab PO Q6H PRN PRN Reason: Pain, Moderate (4-6) Sodium Chloride (Sodium Chloride 0.9% 10 Ml Flush Syringe) 10 ml IV BID [facility] Last Admin: 05/08/21 10:20 Dose: 10 ml Sodium Chloride (Sodium Chloride 0.9% 10 Ml Flush Syringe) 10 ml IV PRN PRN PRN Reason: LINE FLUSH Review of Systems ROS unobtainable: due to mental status Exam - Constitutional Vitals: Temp Pulse Resp BP Pulse Ox 98.7 F 117 H 26 H 90/47 94 05/08/21 11:52 05/08/21 13:31 05/08/21 13:40 05/08/21 11:52 05/08/21 14:30 General appearance: Present: severe distress, cachectic - EENT Eyes: Present: PERRL, EOM intact ENT: hearing intact, clear oral mucosa - Respiratory Respiratory effort: labored, accessory muscle use Respiratory: bilateral: diminished - Cardiovascular Rhythm: regular Heart Sounds: Present: S1 & S2 - Extremities Extremities: no ischemia, pulses intact, pulses symmetrical, normal temperature, normal color Extremity abnormal: edema (1+ pitting edema) Peripheral Pulses: within normal limits - Abdominal General gastrointestinal: Present: soft, non-tender, non-distended, normal bowel sounds Female genitourinary: Present: deferred - Rectal Rectal Exam: deferred - Integumentary Integumentary: Present: clear, warm, dry - Neurologic Neurologic: CNII-XII intact - Allied Health Allied health notes reviewed: nursing HEART Score - HEART Score Troponin: Troponin T 0.016 ng/mL (0.00-0.029) 05/08/21 12:42 Results - Labs CBC & Chem 7: 05/08/21 07:37 05/08/21 07:37 Labs: Laboratory Last Values WBC 18.7 K/mm3 (4.5-11.0) H 05/08/21 07:37 RBC 5.09 M/mm3 (3.65-5.03) H 05/08/21 07:37 Hgb 15.3 gm/dl (10.1-14.3) H 05/08/21 07:37 Hct 47.0 % (30.3-42.9) H 05/08/21 07:37 MCV 92 fl (79-97) 05/08/21 07:37 MCH 30 pg (28-32) 05/08/21 07:37 MCHC 33 % (30-34) 05/08/21 07:37 RDW 14.9 % (13.2-15.2) 05/08/21 07:37 Plt Count 325 K/mm3 (140-440) 05/08/21 07:37 Add Manual Diff Complete 05/08/21 07:37 Total Counted 100 05/08/21 07:37 Seg Neutrophils % Sports Intern 05/08/21 07:37 Seg Neuts % (Manual) 93.0 % (40.0-70.0) H 05/08/21 07:37 Band Neutrophils % 1.0 % 05/08/21 07:37 Lymphocytes % (Manual) 5.0 % (13.4-35.0) L 05/08/21 07:37 Reactive Lymphs % (Man) 0 % 05/08/21 07:37 Monocytes % (Manual) 1.0 % (0.0-7.3) 05/08/21 07:37 Eosinophils % (Manual) 0 % (0.0-4.3) 05/08/21 07:37 Basophils % (Manual) 0 % (0.0-1.8) 05/08/21 07:37 Metamyelocytes % 0 % 05/08/21 07:37 Myelocytes % 0 % 05/08/21 07:37 Promyelocytes % 0 % 05/08/21 07:37 Blast Cells % 0 % 05/08/21 07:37 Nucleated RBC % Not Reportable 05/08/21 07:37 Seg Neutrophils # Man 17.4 K/mm3 (1.8-7.7) H 05/08/21 07:37 Band Neutrophils # 0.2 K/mm3 05/08/21 07:37 Lymphocytes # (Manual) 0.9 K/mm3 (1.2-5.4) L 05/08/21 07:37 Abs React Lymphs (Man) 0.0 K/mm3 05/08/21 07:37 Monocytes # (Manual) 0.2 K/mm3 (0.0-0.8) 05/08/21 07:37 Eosinophils # (Manual) 0.0 K/mm3 (0.0-0.4) 05/08/21 07:37 Basophils # (Manual) 0.0 K/mm3 (0.0-0.1) 05/08/21 07:37 Metamyelocytes # 0.0 K/mm3 05/08/21 07:37 Myelocytes # 0.0 K/mm3 05/08/21 07:37 Promyelocytes # 0.0 K/mm3 05/08/21 07:37 Blast Cells # 0.0 K/mm3 05/08/21 07:37 WBC Morphology Not Reportable 05/08/21 07:37 Hypersegmented Neuts Not Reportable 05/08/21 07:37 Hyposegmented Neuts Not Reportable 05/08/21 07:37 Hypogranular Neuts Not Reportable 05/08/21 07:37 Smudge Cells Not Reportable 05/08/21 07:37 Toxic Granulation Not Reportable 05/08/21 07:37 Toxic Vacuolation Few 05/08/21 07:37 Dohle Bodies Not Reportable 05/08/21 07:37 Pelger-Huet Anomaly Not Reportable 05/08/21 07:37 Jomar Rods Not Reportable 05/08/21 07:37 Platelet Estimate Consistent w auto 05/08/21 07:37 Clumped Platelets Not Reportable 05/08/21 07:37 Plt Clumps, EDTA Not Reportable 05/08/21 07:37 Large Platelets Not Reportable 05/08/21 07:37 Giant Platelets Not Reportable 05/08/21 07:37 Platelet Satelliting Not Reportable 05/08/21 07:37 Plt Morphology Comment Not Reportable 05/08/21 07:37 RBC Morphology Not Reportable 05/08/21 07:37 Dimorphic RBCs Not Reportable 05/08/21 07:37 Polychromasia Not Reportable 05/08/21 07:37 Hypochromasia Not Reportable 05/08/21 07:37 Poikilocytosis Not Reportable 05/08/21 07:37 Anisocytosis 1+ 05/08/21 07:37 Microcytosis Not Reportable 05/08/21 07:37 Macrocytosis Not Reportable 05/08/21 07:37 Spherocytes Not Reportable 05/08/21 07:37 Pappenheimer Bodies Not Reportable 05/08/21 07:37 Sickle Cells Not Reportable 05/08/21 07:37 Target Cells Not Reportable 05/08/21 07:37 Tear Drop Cells Not Reportable 05/08/21 07:37 Ovalocytes Not Reportable 05/08/21 07:37 Helmet Cells Not Reportable 05/08/21 07:37 Cardenas-Brisas Del Campanero Bodies Not Reportable 05/08/21 07:37 Troy Rings Not Reportable 05/08/21 07:37 Merlin Cells Not Reportable 05/08/21 07:37 Bite Cells Not Reportable 05/08/21 07:37 Crenated Cell Not Reportable 05/08/21 07:37 Elliptocytes Not Reportable 05/08/21 07:37 Acanthocytes (Spur) Not Reportable 05/08/21 07:37 Rouleaux Not Reportable 05/08/21 07:37 Hemoglobin C Crystals Not Reportable 05/08/21 07:37 Schistocytes Not Reportable 05/08/21 07:37 Malaria parasites Not Reportable 05/08/21 07:37 Clive Bodies Not Reportable 05/08/21 07:37 Hem Pathologist Commnt No 05/08/21 07:37 PT 12.7 Sec. (12.2-14.9) 05/08/21 07:37 INR 0.87 (0.87-1.13) 05/08/21 07:37 APTT 23.0 Sec. (24.2-36.6) L 05/08/21 07:37 ABG pH 7.242 pH Units (7.350-7.450) L 05/08/21 14:25 ABG pCO2 71.6 mm Hg 05/08/21 14:25 ABG pO2 119.4 mm Hg (80.0-90.0) H 05/08/21 14:25 ABG HCO3 30.1 mmol/L (20.0-26.0) H 05/08/21 14:25 ABG O2 Saturation 97.7 % (95.0-99.0) 05/08/21 14:25 ABG O2 Content 18.9 (0.0-44) 05/08/21 14:25 ABG Base Excess 0.7 mmol/L (-2.0-3.0) 05/08/21 14:25 ABG Hemoglobin 14.1 gm/dl (12.0-16.0) 05/08/21 14:25 ABG Carboxyhemoglobin 2.4 % (0.0-5.0) 05/08/21 14:25 ABG Methemoglobin 0.7 % (0.0-1.5) 05/08/21 14:25 Oxyhemoglobin 94.7 % (95.0-99.0) L 05/08/21 14:25 FiO2 21 % 05/08/21 14:25 Sodium 138 mmol/L (137-145) 05/08/21 07:37 Potassium 3.0 mmol/L (3.6-5.0) L 05/08/21 07:37 Chloride 93.6 mmol/L (98-107) L 05/08/21 07:37 Carbon Dioxide 32 mmol/L (22-30) H 05/08/21 07:37 Anion Gap 15 mmol/L 05/08/21 07:37 BUN 18 mg/dL (7-17) H 05/08/21 07:37 Creatinine 0.5 mg/dL (0.6-1.2) L 05/08/21 07:37 Estimated GFR > 60 ml/min 05/08/21 07:37 BUN/Creatinine Ratio 36 % 05/08/21 07:37 Glucose 179 mg/dL (65-100) H 05/08/21 07:37 Lactic Acid 1.50 mmol/L (0.7-2.0) 05/08/21 07:37 Calcium 9.0 mg/dL (8.4-10.2) 05/08/21 07:37 Total Bilirubin 0.30 mg/dL (0.1-1.2) 05/08/21 07:37 Direct Bilirubin < 0.2 mg/dL (0-0.2) 05/08/21 07:37 Indirect Bilirubin 0.1 mg/dL 05/08/21 07:37 AST 17 units/L (5-40) 05/08/21 07:37 ALT 15 units/L (7-56) 05/08/21 07:37 Alkaline Phosphatase 102 units/L (35-129) 05/08/21 07:37 Troponin T 0.016 ng/mL (0.00-0.029) 05/08/21 12:42 NT-Pro-B Natriuret Pep 294.2 pg/mL (0-900) 05/08/21 07:37 Total Protein 6.9 g/dL (6.3-8.2) 05/08/21 07:37 Albumin 4.0 g/dL (3.9-5) 05/08/21 07:37 Albumin/Globulin Ratio 1.4 % 05/08/21 07:37 Urine Color Yellow (Yellow) 05/08/21 08:21 Urine Turbidity Clear (Clear) 05/08/21 08:21 Urine pH 5.0 (5.0-7.0) 05/08/21 08:21 Ur Specific [place] 1.030 (1.003-1.030) 05/08/21 08:21 Urine Protein 30 mg/dl mg/dL (Negative) 05/08/21 08:21 Urine Glucose (UA) Negative mg/dL (Negative) 05/08/21 08:21 Urine Ketones Negative mg/dL (Negative) 05/08/21 08:21 Urine Blood Trace (Negative) 05/08/21 08:21 Urine Nitrite Negative (Negative) 05/08/21 08:21 Ur Reducing Substances Not Reportable 05/08/21 08:21 Urine Bilirubin Negative (Negative) 05/08/21 08:21 Urine Ictotest Not Reportable 05/08/21 08:21 Urine Urobilinogen < 2.0 mg/dL (<2.0) 05/08/21 08:21 Ur Leukocyte Esterase Small (Negative) 05/08/21 08:21 Urine WBC (Auto) 3.0 /HPF (0.0-6.0) 05/08/21 08:21 Urine RBC (Auto) 44.0 /HPF (0.0-6.0) 05/08/21 08:21 U Epithel Cells (Auto) 3.0 /HPF (0-13.0) 05/08/21 08:21 Calcium Oxalate Crystal 2+ 05/08/21 08:21 Coronavirus (PCR) Negative (Negative) 05/08/21 09:36 Microbiology: Microbiology 05/08/21 07:37 Peripheral/Venous Blood Culture - Preliminary Culture in Progress 05/08/21 07:37 Peripheral/Venous Blood Culture - Preliminary Culture in Progress Antonio/IV: Voiding Method External Female Catheter Assessment and Plan Assessment and plan: Patient is a 76-year-old female past medical history of congestive heart failure, COPD (on 2-3 L nasal cannula at home), hypertension who has been experiencing multiple episodes of shortness of breath complicated by hypoxia resulting in hospital admission and treatment with antibiotics before eventual discharge. The patient's daughter endorses the patient being admitted to 2 other [facility] ([facility] and [place]) for similar presentations. The patient was last discharged from the hospital on 05/03/2021 (at [facility]). According to the patient's daughter, she has been having worsening symptoms, and the patient was transported via EMS to [facility]. In the ED, the patient was found to be hypotensive (99/45), heart rate 125, respiratory rate 30, ABG 7.22/81.9/315 on 100% FiO2 (BiPAP). Patient was found to have unremarkable lactic acid and pro BNP. Patient was initiated on IV fluid s, cefepime, vancomycin. Chest x-ray was suggestive of right basilar pneumonia. The patient is being admitted for severe sepsis secondary to pneumonia complicated by acute hypoxic respiratory failure. #Severe sepsis #Leukocytosis Hypotension, heart rate 125, respiratory rate 30, WBC 18.7 Chest x-ray concerning for right basilar pneumonia with possible left lower lobe involvement Status post 3 L IV fluid resuscitation, vancomycin, and cefepime in the ED Continue vancomycin and cefepime. Blood cultures drawn. Urinalysis revealing hematuria but otherwise unremarkable for possible cystitis. Coronavirus PCR unremarkable. Low threshold for ICU transfer with initiation of vasopressors. Infectious disease consulted; appreciate recs Continue to monitor #Acute on chronic hypoxic respiratory failure #Respiratory acidosis -AB.22/81.9/315 100% FiO2 - etiology: Likely infectious in the setting of possible community-acquired pneumonia. - baseline oxygen requirements: 2-3 L nasal cannula - supplemental oxygen: BiPAP - Continue protocol: continue pulse oximetry, wean oxygen as tolerated, ordered incentive spirometry and educated patient on how to use it and its importance. Pulmonology consulted; pending recs Infectious disease consulted; appreciate recs #History of COPD Recently initiated on home oxygen of 2-3 L Continue scheduled DuoNebs #Hypokalemia Potassium 3.0. Repleted. Trend with daily BMP. The high probability of a clinically significant, sudden or life threatening deterioration of the [respiratory, ID, cardiology] system(s) required my full and direct attention, intervention and personal management. The aggregate critical care time was [60] minutes. This time is in addition to time spent performing reported procedures but includes the following: [x] Data Review and interpretation [x] Patient assessment and monitoring of vital signs [x] Documentation [x] Medication orders and management Advance Directives: No VTE prophylaxis?: Chemical Plan of care discussed with patient/family: Yes
[2021-05-09] MEDS: CEFEPIME/NS 1 GM/100 ML 1 GM/100 ML BAG IV SCH ×3 (06:05→23:47)
--- NOTE | 2021-05-09 08:16 | Progress Note ---
Assessment and Plan Assessment and plan: History of present illness: Patient is a 76-year-old female past medical history of congestive heart fa ilure, COPD (on 2-3 L nasal cannula at home), hypertension who has been experiencing multiple episodes of shortness of breath complicated by hypoxia resulting in hospital admission and treatment with antibiotics before eventual discharge. The patient's daughter endorses the patient being admitted to 2 other [facility] hospitals ([facility] and [place]) for similar presentations. The patient was last discharged from the hospital on 05/03/2021 (at [facility]). According to the patient's daughter, she has been having worsening symptoms, and the patient was transported via EMS to [facility]. In the ED, the patient was found to be hypotensive (99/45), heart rate 125, respiratory rate 30, ABG 7.22/81.9/315 on 100% FiO2 (BiPAP). Patient was found to have unremarkable lactic acid and pro BNP. Patient was initiated on IV fluids, cefepime, vancomycin. Chest x-ray was suggestive of right basilar pneumonia. The patient is being admitted for severe sepsis secondary to pneumonia complicated by acute hypoxic respiratory failure. Worsening respiratory status yesterday will be transfer to imcu monitoring due to worsening respiratory status on bipap. Hospital course: 05/09: CT chest ordered demonstrated severe rt sided pna with extensive emphysema. Spoke at length with daughter who states she would like to pursue home hospice if no improvement in clinical status in next 24-48hrs. D/w pulmonary who is familiar with this patient case /family and agrees with plan as well. D/w CM re: home hospice plan. Assessment and plan: #Acute on chronic hypoxic respiratory failure #Respiratory acidosis -AB.22/81.9/315 100% FiO2 - etiology: Likely infectious in the setting of possible community-acquired pneumonia. - baseline oxygen requirements: 2-3 L nasal cannula - supplemental oxygen: BiPAP, now on salter nasal cannula - Continue protocol: continue pulse oximetry, wean oxygen as tolerated, ordered incentive spirometry and educated patient on how to use it and its importance. Pulmonology consulted; IV steroids, IV antibiotic therapy, BiPAP as needed. Infectious disease consulted, IV cefepime/vanco. - 05/09 CT Chest w/o con pending #Severe sepsis #Leukocytosis Hypotension, heart rate 125, respiratory rate 30, WBC 18.7 Chest x-ray concerning for right basilar pneumonia with possible left lower lobe involvement Status post 3 L IV fluid resuscitation, vancomycin, and cefepime in the ED Continue vancomycin and cefepime. Blood cultures drawn. Urinalysis revealing hematuria but otherwise unremarkable for possible cystitis. Coronavirus PCR unremarkable. maintain map > 65 Infectious disease consulted; appreciate recs Continue to monitor #History of COPD Recently initiated on home oxygen of 2-3 L Continue scheduled DuoNebs #Hypokalemia Potassium 3.0. Repleted. Trend with daily BMP. History Interval history: Resting comfortably on salter nc. daughter at bedside and provided all history. States the patient has been in and out of hospital for pneumonia. patient health has been declining for some time. She stated to me that she would like to pursue home hospice if the patient does not improve in the next 24 to 48 hours. Hospitalist Physical - Physical exam Narrative exam: General appearance: Present: severe distress, cachectic - EENT Eyes: Present: PERRL, EOM intact ENT: hearing intact, clear oral mucosa - Respiratory Respiratory effort: labored, accessory muscle use Respiratory: bilateral: diminished - Cardiovascular Rhythm: regular Heart Sounds: Present: S1 & S2 - Extremities Extremities: no ischemia, pulses intact, pulses symmetrical, normal temperature, normal color Extremity abnormal: edema (1+ pitting edema) Peripheral Pulses: within normal limits - Abdominal General gastrointestinal: Present: soft, non-tender, non-distended, normal bowel sounds Female genitourinary: Present: deferred - Rectal Rectal Exam: deferred - Integumentary Integumentary: Present: clear, warm, dry - Neurologic Neurologic: CNII-XII intact - Allied Health Allied health notes reviewed: nursing - Constitutional Vitals: Temp Pulse Resp BP Pulse Ox 97.9 F 115 H 24 104/60 98 05/09/21 03:26 05/09/21 03:26 05/09/21 03:26 05/09/21 03:26 05/09/21 03:26 General appearance: Present: severe distress, cachectic HEART Score - HEART Score Troponin: Troponin T 0.023 ng/mL (0.00-0.029) 05/08/21 15:22 Results - Labs CBC & Chem 7: 05/09/21 10:25 05/09/21 10:25 Labs: Laboratory Last Values WBC 18.7 K/mm3 (4.5-11.0) H 05/08/21 07:37 RBC 5.09 M/mm3 (3.65-5.03) H 05/08/21 07:37 Hgb 15.3 gm/dl (10.1-14.3) H 05/08/21 07:37 Hct 47.0 % (30.3-42.9) H 05/08/21 07:37 MCV 92 fl (79-97) 05/08/21 07:37 MCH 30 pg (28-32) 05/08/21 07:37 MCHC 33 % (30-34) 05/08/21 07:37 RDW 14.9 % (13.2-15.2) 05/08/21 07:37 Plt Count 325 K/mm3 (140-440) 05/08/21 07:37 Add Manual Diff Complete 05/08/21 07:37 Total Counted 100 05/08/21 07:37 Seg Neutrophils % Hotel Front Desk Clerk 05/08/21 07:37 Seg Neuts % (Manual) 93.0 % (40.0-70.0) H 05/08/21 07:37 Band Neutrophils % 1.0 % 05/08/21 07:37 Lymphocytes % (Manual) 5.0 % (13.4-35.0) L 05/08/21 07:37 Reactive Lymphs % (Man) 0 % 05/08/21 07:37 Monocytes % (Manual) 1.0 % (0.0-7.3) 05/08/21 07:37 Eosinophils % (Manual) 0 % (0.0-4.3) 05/08/21 07:37 Basophils % (Manual) 0 % (0.0-1.8) 05/08/21 07:37 Metamyelocytes % 0 % 05/08/21 07:37 Myelocytes % 0 % 05/08/21 07:37 Promyelocytes % 0 % 05/08/21 07:37 Blast Cells % 0 % 05/08/21 07:37 Nucleated RBC % Not Reportable 05/08/21 07:37 Seg Neutrophils # Man 17.4 K/mm3 (1.8-7.7) H 05/08/21 07:37 Band Neutrophils # 0.2 K/mm3 05/08/21 07:37 Lymphocytes # (Manual) 0.9 K/mm3 (1.2-5.4) L 05/08/21 07:37 Abs React Lymphs (Man) 0.0 K/mm3 05/08/21 07:37 Monocytes # (Manual) 0.2 K/mm3 (0.0-0.8) 05/08/21 07:37 Eosinophils # (Manual) 0.0 K/mm3 (0.0-0.4) 05/08/21 07:37 Basophils # (Manual) 0.0 K/mm3 (0.0-0.1) 05/08/21 07:37 Metamyelocytes # 0.0 K/mm3 05/08/21 07:37 Myelocytes # 0.0 K/mm3 05/08/21 07:37 Promyelocytes # 0.0 K/mm3 05/08/21 07:37 Blast Cells # 0.0 K/mm3 05/08/21 07:37 WBC Morphology Not Reportable 05/08/21 07:37 Hypersegmented Neuts Not Reportable 05/08/21 07:37 Hyposegmented Neuts Not Reportable 05/08/21 07:37 Hypogranular Neuts Not Reportable 05/08/21 07:37 Smudge Cells Not Reportable 05/08/21 07:37 Toxic Granulation Not Reportable 05/08/21 07:37 Toxic Vacuolation Few 05/08/21 07:37 Dohle Bodies Not Reportable 05/08/21 07:37 Pelger-Huet Anomaly Not Reportable 05/08/21 07:37 Jomar Rods Not Reportable 05/08/21 07:37 Platelet Estimate Consistent w auto 05/08/21 07:37 Clumped Platelets Not Reportable 05/08/21 07:37 Plt Clumps, EDTA Not Reportable 05/08/21 07:37 Large Platelets Not Reportable 05/08/21 07:37 Giant Platelets Not Reportable 05/08/21 07:37 Platelet Satelliting Not Reportable 05/08/21 07:37 Plt Morphology Comment Not Reportable 05/08/21 07:37 RBC Morphology Not Reportable 05/08/21 07:37 Dimorphic RBCs Not Reportable 05/08/21 07:37 Polychromasia Not Reportable 05/08/21 07:37 Hypochromasia Not Reportable 05/08/21 07:37 Poikilocytosis Not Reportable 05/08/21 07:37 Anisocytosis 1+ 05/08/21 07:37 Microcytosis Not Reportable 05/08/21 07:37 Macrocytosis Not Reportable 05/08/21 07:37 Spherocytes Not Reportable 05/08/21 07:37 Pappenheimer Bodies Not Reportable 05/08/21 07:37 Sickle Cells Not Reportable 05/08/21 07:37 Target Cells Not Reportable 05/08/21 07:37 Tear Drop Cells Not Reportable 05/08/21 07:37 Ovalocytes Not Reportable 05/08/21 07:37 Helmet Cells Not Reportable 05/08/21 07:37 [place] Bodies Not Reportable 05/08/21 07:37 [place] Rings Not Reportable 05/08/21 07:37 Merlin Cells Not Reportable 05/08/21 07:37 Bite Cells Not Reportable 05/08/21 07:37 Crenated Cell Not Reportable 05/08/21 07:37 Elliptocytes Not Reportable 05/08/21 07:37 Acanthocytes (Spur) Not Reportable 05/08/21 07:37 Rouleaux Not Reportable 05/08/21 07:37 Hemoglobin C Crystals Not Reportable 05/08/21 07:37 Schistocytes Not Reportable 05/08/21 07:37 Malaria parasites Not Reportable 05/08/21 07:37 Clive Bodies Not Reportable 05/08/21 07:37 Hem Pathologist Commnt No 05/08/21 07:37 PT 12.7 Sec. (12.2-14.9) 05/08/21 07:37 INR 0.87 (0.87-1.13) 05/08/21 07:37 APTT 23.0 Sec. (24.2-36.6) L 05/08/21 07:37 ABG pH 7.242 pH Units (7.350-7.450) L 05/08/21 14:25 ABG pCO2 71.6 mm Hg 05/08/21 14:25 ABG pO2 119.4 mm Hg (80.0-90.0) H 05/08/21 14:25 ABG HCO3 30.1 mmol/L (20.0-26.0) H 05/08/21 14:25 ABG O2 Saturation 97.7 % (95.0-99.0) 05/08/21 14:25 ABG O2 Content 18.9 (0.0-44) 05/08/21 14:25 ABG Base Excess 0.7 mmol/L (-2.0-3.0) 05/08/21 14:25 ABG Hemoglobin 14.1 gm/dl (12.0-16.0) 05/08/21 14:25 ABG Carboxyhemoglobin 2.4 % (0.0-5.0) 05/08/21 14:25 ABG Methemoglobin 0.7 % (0.0-1.5) 05/08/21 14:25 Oxyhemoglobin 94.7 % (95.0-99.0) L 05/08/21 14:25 FiO2 21 % 05/08/21 14:25 Sodium 138 mmol/L (137-145) 05/08/21 07:37 Potassium 3.0 mmol/L (3.6-5.0) L 05/08/21 07:37 Chloride 93.6 mmol/L (98-107) L 05/08/21 07:37 Carbon Dioxide 32 mmol/L (22-30) H 05/08/21 07:37 Anion Gap 15 mmol/L 05/08/21 07:37 BUN 18 mg/dL (7-17) H 05/08/21 07:37 Creatinine 0.5 mg/dL (0.6-1.2) L 05/08/21 07:37 Estimated GFR > 60 ml/min 05/08/21 07:37 BUN/Creatinine Ratio 36 % 05/08/21 07:37 Glucose 179 mg/dL (65-100) H 05/08/21 07:37 Lactic Acid 1.50 mmol/L (0.7-2.0) 05/08/21 07:37 Calcium 9.0 mg/dL (8.4-10.2) 05/08/21 07:37 Total Bilirubin 0.30 mg/dL (0.1-1.2) 05/08/21 07:37 Direct Bilirubin < 0.2 mg/dL (0-0.2) 05/08/21 07:37 Indirect Bilirubin 0.1 mg/dL 05/08/21 07:37 AST 17 units/L (5-40) 05/08/21 07:37 ALT 15 units/L (7-56) 05/08/21 07:37 Alkaline Phosphatase 102 units/L (35-129) 05/08/21 07:37 Troponin T 0.023 ng/mL (0.00-0.029) 05/08/21 15:22 NT-Pro-B Natriuret Pep 294.2 pg/mL (0-900) 05/08/21 07:37 Total Protein 6.9 g/dL (6.3-8.2) 05/08/21 07:37 Albumin 4.0 g/dL (3.9-5) 05/08/21 07:37 Albumin/Globulin Ratio 1.4 % 05/08/21 07:37 Urine Color Yellow (Yellow) 05/08/21 08:21 Urine Turbidity Clear (Clear) 05/08/21 08:21 Urine pH 5.0 (5.0-7.0) 05/08/21 08:21 Ur Specific [place] 1.030 (1.003-1.030) 05/08/21 08:21 Urine Protein 30 mg/dl mg/dL (Negative) 05/08/21 08:21 Urine Glucose (UA) Negative mg/dL (Negative) 05/08/21 08:21 Urine Ketones Negative mg/dL (Negative) 05/08/21 08:21 Urine Blood Trace (Negative) 05/08/21 08:21 Urine Nitrite Negative (Negative) 05/08/21 08:21 Ur Reducing Substances Not Reportable 05/08/21 08:21 Urine Bilirubin Negative (Negative) 05/08/21 08:21 Urine Ictotest Not Reportable 05/08/21 08:21 Urine Urobilinogen < 2.0 mg/dL (<2.0) 05/08/21 08:21 Ur Leukocyte Esterase Small (Negative) 05/08/21 08:21 Urine WBC (Auto) 3.0 /HPF (0.0-6.0) 05/08/21 08:21 Urine RBC (Auto) 44.0 /HPF (0.0-6.0) 05/08/21 08:21 U Epithel Cells (Auto) 3.0 /HPF (0-13.0) 05/08/21 08:21 Calcium Oxalate Crystal 2+ 05/08/21 08:21 Coronavirus (PCR) Negative (Negative) 05/08/21 09:36 Microbiology: Microbiology 05/08/21 07:37 Peripheral/Venous Blood Culture - Preliminary NO GROWTH AFTER 24 HOURS 05/08/21 07:37 Peripheral/Venous Blood Culture - Preliminary NO GROWTH AFTER 24 HOURS Antonio/IV: Voiding Method External Female Catheter Active Medications - Current Medications Current Medications: Generic Name Dose Route Start Last Admin Trade Name Freq PRN Reason Stop Dose Admin Acetaminophen 650 mg 05/08/21 10:00 Acetaminophen 325 Mg Tab PO Q4H PRN Pain MILD(1-3)/Fever >100.5/WHITE Dexamethasone 8 mg 05/08/21 10:00 05/08/21 12:58 Dexamethasone 4 Mg/Ml Vial IV Not Given DAILY [facility] Enoxaparin Sodium 40 mg 05/08/21 10:00 05/08/21 12:57 Enoxaparin 40 Mg/0.4 Ml Inj SUB-Q Not Given QDAY@1000 [facility] Cefepime HCl 1 gm in 100 mls @ 200 mls/hr 05/08/21 15:00 05/09/21 06:05 Cefepime/Ns 1 Gm/100 Ml IV 05/12/21 14:59 200 mls/hr Q8H [facility] Administration Protocol Vancomycin HCl 750 mg/ Sodium 265 mls @ 166.667 mls/hr 05/09/21 08:00 Chloride IV Q24H [facility] Lorazepam 1 mg 05/08/21 15:30 05/08/21 15:41 Lorazepam 2 Mg/Ml Vial IV 1 mg Q8H PRN Administration Agitation Morphine Sulfate 2 mg 05/08/21 10:00 05/08/21 12:12 Morphine 2 Mg/1 Ml Inj IV 2 mg Q4H PRN Administration Pain , Severe (7-10) Ondansetron HCl 4 mg 05/08/21 10:00 Ondansetron 4 Mg/2 Ml Inj IV Q8H PRN Nausea And Vomiting Oxycodone/Acetaminophen 1 tab 05/08/21 10:00 Oxycodone /Acetaminophen 5-325mg Tab PO Q6H PRN Pain, Moderate (4-6) Sodium Chloride 10 ml 05/08/21 10:00 05/08/21 22:28 Sodium Chloride 0.9% 10 Ml Flush Syringe IV 10 ml BID ALAN Administration Sodium Chloride 10 ml 05/08/21 10:00 Sodium Chloride 0.9% 10 Ml Flush Syringe IV PRN PRN LINE FLUSH Nutrition/Malnutrition Assess - Dietary Evaluation Nutrition/Malnutrition Findings: Nutrition Notes Start: 05/08/21 16:45 Freq: Status: Active Protocol: Document 05/08/21 16:45 SRINIVAS (Rec: 05/08/21 17:01 SRINIVAS [id number]) Nutrition Notes Need for Assessment generated from: weatherization director Initial or Follow up Assessment Current Diagnosis COPD,Sepsis,Hypertension, Respiratory Failure Other Pertinent Diagnosis CHF, SOB, Leukocytosis, Respiratory Acidosis, Hypokalemia. Current Diet NPO (since 05/08 09:13). Labs/Tests 05/08: K 3.0, Cl 93.6, CO2 32, BUN 18, Crea 0.5, Glu 176. Pertinent Medications 05/08: Nutritionally unremarkable. Height 5 ft Weight 40.823 kg [place] Body Weight (kg) 45.45 BMI 17.5 Intake Prior to Admission Good Weight change and time frame Pt denies having loss body weight [employer]. Weight Status Underweight Subjective/Other Information RD consult for skin risk assessment. Pt currently on NPO. Will reassess PO intake of mewals at F/U. Pt on NIV/Bi-PaP+ Pt has DNR dispositions. Percent of energy/protein needs met: Pt currently on NPO. Burn Absent Trauma Absent GI Symptoms None Food Allergy No Skin Integrity/Comment Unspecified bruises. Current % PO Other Minimum of two criteria No #1 Nutrition Diagnosis No nutrition diagnosis at this time Comments: Will reassess PO intake of mewals at F/U. Is patient on ventilator? No Is Patient Ambulatory and/or Out of Bed Yes [facility]) [ [id number] [id number]] Calculation Used for Recommendations [facility] Additional Notes Protein: 1-1.2 g/Kg ABW; 41-49 g/day. Fluids: 1 ml/Kcal, or as per MD. Nutrition Intervention Follow-Up By: 05/15/21 Additional Comments Will reassess PO intake of mewals at F/U. When pertinent, start monitoring food tolerance, %PO intake of meals, and BM.
[2021-05-09] MEDS: VANCOMYCIN 750 MG in SODIUM CHLORIDE 0.9% 250ML 250 ML IV SCH (08:27)
[2021-05-09] MEDS: ENOXAPARIN 40 MG/0.4 ML INJ SUB-Q SCH (09:23)
[2021-05-09] MEDS: LORazepam 2 MG/ML VIAL IV PRN (09:23)
[2021-05-09] MEDS: dexAMETHasone 4 MG/ML VIAL IV SCH (09:49)
[2021-05-09 11:17] LABS: Hematocrit 38.9 % (30.3-42.9); Hemoglobin 12.4 gm/dl (10.1-14.3); Mean Corpuscular HGB Conc 32 % (30-34); Mean Corpuscular Volume 94 fl (79-97); Platelet Count 223 K/mm3 (140-440); Red Blood Count 4.16 M/mm3 (3.65-5.03); Red Cell Distribution Width 14.9 % (13.2-15.2)
[2021-05-09 11:35] LABS: Blood Urea Nitrogen 33 mg/dL (7-17); Calcium 7.5 mg/dL (8.4-10.2); Hemolysis Index 6
[2021-05-09 11:47] LABS: BUN/Creatinine Ratio 55
--- NOTE | 2021-05-09 12:00 | Progress Note ---
Assessment and Plan Cultures: 05/08/2021 blood culture: In process 05/08/2021 urine culture: In process A/P: 76-year-old female with CHF, COPD, hypertension admitted from home with worsening shortness of breath over the last week to 10 days, initially she was admitted for 1 day at [facility] with pneumonia and sent home, then readmitted to [place] and was discharged home after a few days now with: #Severe sepsis, secondary to pneumonia #Acute hypoxic respiratory failure: was on BiPAP. Recs: -continue IV cefepime, vancomycin, D2 -f/u MRSA nasal PCR, procalcitonin -Follow-up cultures Ruthann Odom MD, FACP, [facility] ([facility]) O: [phone] F: [phone] C: [phone] Subjective Date of service: 05/09/21 Interval history: No fever. Off BiPAP. Daughter at bedside. Patient somewhat restless and wants to get out of bed. Remains on oxygen. Objective - Exam Narrative Exam: Physical Exam: Constitutional: awake, restless Head, Ears, Nose: Normocephalic, atraumatic. External ears, nose normal Eyes: Conjunctivae/corneas clear. No icterus. No ptosis. Neck: Supple, no meningeal signs Cardiovascular: S1, S2 + Respiratory: AE fair b/l GI: Soft, non-tender; bowel sounds normal. No peritoneal signs Musculoskeletal: trace pedal edema, no cyanosis Skin: No rash or abscess Hem/Lymphatic: No palpable cervical or supraclavicular nodes. No lymphangitis Psych: restless Neurological: awake, restless - Constitutional Vitals: Vital Signs Temp Pulse Resp BP Pulse Ox 98.4 F 115 H 22 113/62 94 05/09/21 08:01 05/09/21 08:01 05/09/21 08:01 05/09/21 08:01 05/09/21 08:01 Temperature -Last 24 Hours Temperature 98.4 F Temperature 97.9 F Temperature 98.1 F Temperature 98.5 F Temperature 98.6 F - Labs CBC & Chem 7: 05/09/21 10:25 05/09/21 10:25 Labs: Abnormal lab results 03/22/22 03/23/22 Range/Units 14:25 10:25 ABG pH 7.242 L (7.350-7.450) pH Units ABG pO2 119.4 H (80.0-90.0) mm Hg ABG HCO3 30.1 H (20.0-26.0) mmol/L Oxyhemoglobin 94.7 L (95.0-99.0) % BUN 33 H (7-17) mg/dL Calcium 7.5 L D (8.4-10.2) mg/dL
[2021-05-09] MEDS ORDERED: DEXTROSE 10% *Hypoglycemia IV PRN (12:10)
[2021-05-09 12:14] LABS: Band Neutrophils # (Manual) 2.6 K/mm3; Basophils % (Manual) 0 % (0.0-1.8); Eosinophils % (Manual) 0 % (0.0-4.3); Total Cells Counted 100
[2021-05-09 12:15] LABS: Anisocytosis 1+; Platelet Estimate Consistent w Auto
--- NOTE | 2021-05-09 12:34 | Consultation ---
History of Present Illness Consult date: 05/09/21 Requesting physician: RAJI EDWARDS Reason for consult: COPD, hypoxemia, pneumonia History of present illness: 76 y/o female with known COPD, followed by Dr. Church, still smoking admitted now for the third or 4th time this month alone for pneumonia and acute respiratory failure. Other hospital stays were at [facility] and [facility]. I know patient as I was peripherally involved in her 's care b efore he . Daughter at bedside and provided all the history. patient asleep on salter. Past History Past Medical History: COPD (on 2-3L nasal cannula), heart failure, hypertension Past Surgical History: mastectomy Social history: , lives with family, AND/DNR-allow natural Family history: hypertension Medications and Allergies Allergies Allergy/AdvReac Type Severity Reaction Status Date / Time surgical tape AdvReac Tears skin Uncoded 05/08/21 07:19 Home Medications Medication Instructions Recorded Confirmed Last Taken Type Zolpidem (Nf) [Ambien (Nf)] 10 mg PO QHS 06/08/18 08/26/18 1 Week Ago History ~05/01/21 Aspirin 325 mg PO QDAY #30 tablet 06/09/18 05/08/21 05/07/21 08:00 Rx Cimetidine [Tagamet Hb] 400 mg PO PRN PRN 06/13/18 05/08/21 1 Year Ago History ~05/08/20 Clopidogrel [Plavix] 75 mg PO DAILY #30 tablet 06/15/18 05/08/21 1 Year Ago Rx ~05/08/20 Rosuvastatin Calcium [Crestor] 40 mg PO DAILY 08/26/18 05/08/21 1 Year Ago History ~05/08/20 Triamter/Hctz 37.5-25 mg 1 tab PO QDAY 08/26/18 05/08/21 05/07/21 08:00 History [Maxzide-25] Albuterol Mdi (or & Nicu Only) 2 spray INHALATION BID 09/03/18 05/08/21 05/07/21 08:00 History [ProAir HFA Inhaler] HYDROcodone/APAP 5-325 [[place] 1 each PO Q6HR PRN #14 tablet 09/03/18 05/08/21 1 Year Ago Rx 5/325 mg] ~05/08/20 Clopidogrel [Plavix] 75 mg PO QDAY tablet 09/04/18 05/08/21 1 Year Ago Rx ~05/08/20 Docusate Sodium [Colace CAP] 100 mg PO BID capsule 09/04/18 05/08/21 1 Year Ago Rx ~05/08/20 Active Meds: Active Medications Acetaminophen (Acetaminophen 325 Mg Tab) 650 mg PO Q4H PRN PRN Reason: Pain MILD(1-3)/Fever >100.5/WHITE Dexamethasone (Dexamethasone 4 Mg/Ml Vial) 8 mg IV DAILY ALAN Last Admin: 05/09/21 09:49 Dose: 8 mg Dextrose (Dextrose 10% *Hypoglycemia) 0 ml IV PRN PRN; Protocol PRN Reason: Hypoglycemia Last Admin: 05/09/21 12:29 Dose: 50 ml Enoxaparin Sodium (Enoxaparin 40 Mg/0.4 Ml Inj) 40 mg SUB-Q QDAY@1000 ALAN Last Admin: 05/09/21 09:23 Dose: 40 mg Cefepime HCl (Cefepime/Ns 1 Gm/100 Ml) 1 gm in 100 mls @ 200 mls/hr IV Q8H ALAN; Protocol Stop: 05/12/21 14:59 Last Admin: 05/09/21 06:05 Dose: 200 mls/hr Vancomycin HCl 750 mg/ Sodium (Chloride) 265 mls @ 166.667 mls/hr IV Q24H ALAN Last Admin: 05/09/21 08:27 Dose: 166.667 mls/hr Lorazepam (Lorazepam 2 Mg/Ml Vial) 1 mg IV Q8H PRN PRN Reason: Agitation Last Admin: 05/09/21 09:23 Dose: 1 mg Morphine Sulfate (Morphine 2 Mg/1 Ml Inj) 2 mg IV Q4H PRN PRN Reason: Pain , Severe (7-10) Last Admin: 05/08/21 12:12 Dose: 2 mg Ondansetron HCl (Ondansetron 4 Mg/2 Ml Inj) 4 mg IV Q8H PRN PRN Reason: Nausea And Vomiting Oxycodone/Acetaminophen (Oxycodone /Acetaminophen 5-325mg Tab) 1 tab PO Q6H PRN PRN Reason: Pain, Moderate (4-6) Sodium Chloride (Sodium Chloride 0.9% 10 Ml Flush Syringe) 10 ml IV BID ALAN Last Admin: 05/09/21 09:23 Dose: 10 ml Sodium Chloride (Sodium Chloride 0.9% 10 Ml Flush Syringe) 10 ml IV PRN PRN PRN Reason: LINE FLUSH Review of Systems ROS unobtainable: due to mental status Physical Examination Vital signs: Vital Signs Pulse Resp BP Pulse Ox 129 H 36 H 163/79 100 05/08/21 07:14 05/08/21 07:14 05/08/21 07:14 05/08/21 07:14 General appearance: asleep Ascultation: Bilateral: diminished breath sounds Results - Laboratory Findings CBC and BMP: 05/09/21 10:25 05/09/21 10:25 ABG ABG pH 7.242 pH Units (7.350-7.450) L 05/08/21 14:25 ABG pCO2 71.6 mm Hg 05/08/21 14:25 ABG pO2 119.4 mm Hg (80.0-90.0) H 05/08/21 14:25 ABG O2 Saturation 97.7 % (95.0-99.0) 05/08/21 14:25 PT/INR, D-dimer PT 12.7 Sec. (12.2-14.9) 05/08/21 07:37 INR 0.87 (0.87-1.13) 05/08/21 07:37 Abnormal lab findings: Abnormal Labs 05/08/21 05/08/21 05/08/21 07:37 07:37 07:37 WBC 18.7 H RBC 5.09 H Hgb 15.3 H Hct 47.0 H Seg Neuts % (Manual) 93.0 H Lymphocytes % (Manual) 5.0 L Seg Neutrophils # Man 17.4 H Lymphocytes # (Manual) 0.9 L APTT 23.0 L ABG pH ABG pO2 ABG HCO3 ABG O2 Saturation Oxyhemoglobin Potassium 3.0 L Chloride 93.6 L Carbon Dioxide 32 H BUN 18 H Creatinine 0.5 L Glucose 179 H Calcium 05/08/21 05/08/21 05/09/21 08:01 14:25 10:25 WBC RBC Hgb Hct Seg Neuts % (Manual) Lymphocytes % (Manual) 4.0 L Seg Neutrophils # Man Lymphocytes # (Manual) 0.4 L APTT ABG pH 7.228 L 7.242 L ABG pO2 315.9 H 119.4 H ABG HCO3 33.4 H 30.1 H ABG O2 Saturation 99.5 H Oxyhemoglobin 94.7 L Potassium Chloride Carbon Dioxide BUN Creatinine Glucose Calcium 05/09/21 10:25 WBC RBC Hgb Hct Seg Neuts % (Manual) Lymphocytes % (Manual) Seg Neutrophils # Man Lymphocytes # (Manual) APTT ABG pH ABG pO2 ABG HCO3 ABG O2 Saturation Oxyhemoglobin Potassium Chloride Carbon Dioxide BUN 33 H Creatinine Glucose Calcium 7.5 L D - Diagnostic Findings Chest x-ray: image reviewed (right lower lobe airspace disease) Assessment and Plan 76 y/o female with acute vs acute on chronic respiratory failure from COPD exacerbation secondary to persistent pneumonia. 1. Will add some IV steroids if oK with primary team 2. Agree with IV abx therapy 3. Bipap should be used PRN and at night 4. Long discussion with daughter at bedside, pending how long abx therapy is recommended and what form, she is leaning towards home hospice which is very reasonable and appropriate for this patient. She has had clinical decline since her in February.
--- NOTE | 2021-05-09 13:24 | Cat Scan Report ---
CT CHEST WITHOUT CONTRAST INDICATION / CLINICAL INFORMATION: pneumonia short of breath . TECHNIQUE: Axial CT images were obtained through the chest without contrast. All CT scans at this [facility] ation are performed using CT dose reduction for ALARA by means of automated exposure control. COMPARISON: None available. FINDINGS: HEART: No significant abnormality. CORONARY ARTERY CALCIFICATION: Present -- Severe. THORACIC AORTA: Severe atherosclerotic calcification without acute abnormality. MEDIASTINUM / NU: No significant abnormality. No obvious adenopathy on noncontrast CT. PLEURA: No pleural effusion. No pneumothorax. LUNGS: Moderate to severe emphysematous changes are identified in the upper lung zones. There is dens e consolidation throughout the right middle and lower lobes consistent with severe pneumonia. The lef t lung is clear. No suspicious pulmonary lesion is detected in the aerated portions of the lung. No i nterstitial lung disease. ADDITIONAL FINDINGS: Bilateral breast prostheses appear intact. UPPER ABDOMEN: No significant abnormality. SKELETAL SYSTEM: There is generalized osteopenia. Mild degenerative changes throughout the thoracic s pine. No suspicious bony lesion or fracture. IMPRESSION: Severe right lung pneumonia as described. Advanced emphysematous changes. Signer Name: Spenser Crow Jr, MD Signed: 05/09/2021 1:20 PM Workstation Name: [id number]
[2021-05-09] MEDS: methylPREDNISolone Sod Succinate 40 MG/1 ML INJ IV SCH ×2 (14:13→21:04)
[2021-05-09] MEDS: MORPHINE 2 MG/1 ML INJ IV PRN (21:04)
[2021-05-10] MEDS: methylPREDNISolone Sod Succinate 40 MG/1 ML INJ IV SCH ×3 (05:36→22:14)
[2021-05-10] MEDS: MORPHINE 2 MG/1 ML INJ IV PRN ×2 (05:48→20:38)
[2021-05-10] MEDS: CEFEPIME/NS 1 GM/100 ML 1 GM/100 ML BAG IV SCH ×3 (07:56→23:00)
--- NOTE | 2021-05-10 08:12 | Progress Note ---
Assessment and Plan Assessment and plan: History of present illness: Patient is a 76-year-old female past medical history of congestive heart fa ilure, COPD (on 2-3 L nasal cannula at home), hypertension who has been experiencing multiple episodes of shortness of breath complicated by hypoxia resulting in hospital admission and treatment with antibiotics before eventual discharge. The patient's daughter endorses the patient being admitted to 2 other [facility] hospitals ([facility] and [facility]) for similar presentations. The patient was last discharged from the hospital on 05/03/2021 (at [facility]). According to the patient's daughter, she has been having worsening symptoms, and the patient was transported via EMS to [facility]. In the ED, the patient was found to be hypotensive (99/45), heart rate 125, respiratory rate 30, ABG 7.22/81.9/315 on 100% FiO2 (BiPAP). Patient was found to have unremarkable lactic acid and pro BNP. Patient was initiated on IV fluids, cefepime, vancomycin. Chest x-ray was suggestive of right basilar pneumonia. The patient is being admitted for severe sepsis secondary to pneumonia complicated by acute hypoxic respiratory failure. Worsening respiratory status yesterday will be transfer to imcu monitoring due to worsening respiratory status on bipap. Hospital course: 05/09: CT chest ordered demonstrated severe rt sided pna with extensive emphysema. Spoke at length with daughter who states she would like to pursue home hospice if no improvement in clinical status in next 24-48hrs. D/w pulmonary who is familiar with this patient case /family and agrees with plan as well. D/w CM re: home hospice plan. 05/10: Wean O2 as sats tolerate. Working with CM for home hospice arrangements. Assessment and plan: #Acute on chronic hypoxic respiratory failure #Respiratory acidosis -AB.22/81.9/315 100% FiO2 - etiology: Likely infectious in the setting of possible community-acquired pneumonia. - baseline oxygen requirements: 2-3 L nasal cannula - supplemental oxygen: BiPAP, now on salter nasal cannula - Continue protocol: continue pulse oximetry, wean oxygen as tolerated, ordered incentive spirometry and educated patient on how to use it and its importance. Pulmonology consulted; IV steroids, IV antibiotic therapy, BiPAP as needed. Infectious disease consulted, IV cefepime/vanco. - 05/09 CT Chest w/o con pending #Severe sepsis #Leukocytosis Hypotension, heart rate 125, respiratory rate 30, WBC 18.7 Chest x-ray concerning for right basilar pneumonia with possible left lower lobe involvement Status post 3 L IV fluid resuscitation, vancomycin, and cefepime in the ED Continue vancomycin and cefepime. Blood cultures drawn. Urinalysis revealing hematuria but otherwise unremarkable for possible cystitis. Coronavirus PCR unremarkable. maintain map > 65 Infectious disease consulted; appreciate recs Continue to monitor #History of COPD Recently initiated on home oxygen of 2-3 L Continue scheduled DuoNebs #Hypokalemia Potassium 3.0. Repleted. Trend with daily BMP. History Interval history: Improved mentation .patient is AOx3. Currently on salter 6 lmin nc. D/w pt and grandson at bedside tx plan for today. Hospitalist Physical - Physical exam Narrative exam: General appearance: Present: severe distress, cachectic - EENT Eyes: Present: PERRL, EOM intact ENT: hearing intact, clear oral mucosa - Respiratory Respiratory effort: labored, accessory muscle use Respiratory: bilateral: diminished - Cardiovascular Rhythm: regular Heart Sounds: Present: S1 & S2 - Extremities Extremities: no ischemia, pulses intact, pulses symmetrical, normal temperature, normal color Extremity abnormal: edema (1+ pitting edema) Peripheral Pulses: within normal limits - Abdominal General gastrointestinal: Present: soft, non-tender, non-distended, normal bowel sounds Female genitourinary: Present: deferred - Rectal Rectal Exam: deferred - Integumentary Integumentary: Present: clear, warm, dry - Neurologic Neurologic: CNII-XII intact - Allied Health Allied health notes reviewed: nursing - Constitutional Vitals: Temp Pulse Resp BP Pulse Ox 97.8 F 105 H 21 108/60 92 05/09/21 22:53 05/10/21 05:00 05/09/21 22:53 05/09/21 22:53 05/10/21 00:00 General appearance: Present: severe distress, cachectic HEART Score - HEART Score Troponin: Troponin T 0.023 ng/mL (0.00-0.029) 05/08/21 15:22 Results - Labs CBC & Chem 7: 05/09/21 10:25 05/09/21 10:25 Labs: Laboratory Last Values WBC 10.4 K/mm3 (4.5-11.0) 05/09/21 10:25 RBC 4.16 M/mm3 (3.65-5.03) 05/09/21 10:25 Hgb 12.4 gm/dl (10.1-14.3) 05/09/21 10:25 Hct 38.9 % (30.3-42.9) D 05/09/21 10:25 MCV 94 fl (79-97) 05/09/21 10:25 MCH 30 pg (28-32) 05/09/21 10:25 MCHC 32 % (30-34) 05/09/21 10:25 RDW 14.9 % (13.2-15.2) 05/09/21 10:25 Plt Count 223 K/mm3 (140-440) 05/09/21 10:25 Add Manual Diff Complete 05/09/21 10:25 Total Counted 100 05/09/21 10:25 Seg Neutrophils % [employer] 05/09/21 10:25 Seg Neuts % (Manual) 67.0 % (40.0-70.0) 05/09/21 10:25 Band Neutrophils % 25.0 % 05/09/21 10:25 Lymphocytes % (Manual) 4.0 % (13.4-35.0) L 05/09/21 10:25 Reactive Lymphs % (Man) 0 % 05/09/21 10:25 Monocytes % (Manual) 2.0 % (0.0-7.3) 05/09/21 10:25 Eosinophils % (Manual) 0 % (0.0-4.3) 05/09/21 10:25 Basophils % (Manual) 0 % (0.0-1.8) 05/09/21 10:25 Metamyelocytes % 2.0 % 05/09/21 10:25 Myelocytes % 0 % 05/09/21 10:25 Promyelocytes % 0 % 05/09/21 10:25 Blast Cells % 0 % 05/09/21 10:25 Nucleated RBC % Not Reportable 05/09/21 10:25 Seg Neutrophils # Man 7.0 K/mm3 (1.8-7.7) 05/09/21 10:25 Band Neutrophils # 2.6 K/mm3 05/09/21 10:25 Lymphocytes # (Manual) 0.4 K/mm3 (1.2-5.4) L 05/09/21 10:25 Abs React Lymphs (Man) 0.0 K/mm3 05/09/21 10:25 Monocytes # (Manual) 0.2 K/mm3 (0.0-0.8) 05/09/21 10:25 Eosinophils # (Manual) 0.0 K/mm3 (0.0-0.4) 05/09/21 10:25 Basophils # (Manual) 0.0 K/mm3 (0.0-0.1) 05/09/21 10:25 Metamyelocytes # 0.2 K/mm3 05/09/21 10:25 Myelocytes # 0.0 K/mm3 05/09/21 10:25 Promyelocytes # 0.0 K/mm3 05/09/21 10:25 Blast Cells # 0.0 K/mm3 05/09/21 10:25 WBC Morphology Not Reportable 05/09/21 10:25 Hypersegmented Neuts Not Reportable 05/09/21 10:25 Hyposegmented Neuts 1+ 05/09/21 10:25 Hypogranular Neuts Not Reportable 05/09/21 10:25 Smudge Cells Not Reportable 05/09/21 10:25 Toxic Granulation Not Reportable 05/09/21 10:25 Toxic Vacuolation Not Reportable 05/09/21 10:25 Dohle Bodies Not Reportable 05/09/21 10:25 Pelger-Huet Anomaly Not Reportable 05/09/21 10:25 Jomar Rods Not Reportable 05/09/21 10:25 Platelet Estimate Consistent w auto 05/09/21 10:25 Clumped Platelets Not Reportable 05/09/21 10:25 Plt Clumps, EDTA Not Reportable 05/09/21 10:25 Large Platelets Not Reportable 05/09/21 10:25 Giant Platelets Not Reportable 05/09/21 10:25 Platelet Satelliting Not Reportable 05/09/21 10:25 Plt Morphology Comment Not Reportable 05/09/21 10:25 RBC Morphology Not Reportable 05/09/21 10:25 Dimorphic RBCs Not Reportable 05/09/21 10:25 Polychromasia Not Reportable 05/09/21 10:25 Hypochromasia Not Reportable 05/09/21 10:25 Poikilocytosis Not Reportable 05/09/21 10:25 Anisocytosis 1+ 05/09/21 10:25 Microcytosis Not Reportable 05/09/21 10:25 Macrocytosis Not Reportable 05/09/21 10:25 Spherocytes Not Reportable 05/09/21 10:25 Pappenheimer Bodies Not Reportable 05/09/21 10:25 Sickle Cells Not Reportable 05/09/21 10:25 Target Cells Not Reportable 05/09/21 10:25 Tear Drop Cells Not Reportable 05/09/21 10:25 Ovalocytes Not Reportable 05/09/21 10:25 Helmet Cells Not Reportable 05/09/21 10:25 [place]arden[place] Bodies Not Reportable 05/09/21 10:25 [place] Rings Not Reportable 05/09/21 10:25 Merlin Cells Not Reportable 05/09/21 10:25 Bite Cells Not Reportable 05/09/21 10:25 Crenated Cell Not Reportable 05/09/21 10:25 Elliptocytes Not Reportable 05/09/21 10:25 Acanthocytes (Spur) Not Reportable 05/09/21 10:25 Rouleaux Not Reportable 05/09/21 10:25 Hemoglobin C Crystals Not Reportable 05/09/21 10:25 Schistocytes Not Reportable 05/09/21 10:25 Malaria parasites Not Reportable 05/09/21 10:25 Clive Bodies Not Reportable 05/09/21 10:25 Hem Pathologist Commnt No 05/09/21 10:25 PT 12.7 Sec. (12.2-14.9) 05/08/21 07:37 INR 0.87 (0.87-1.13) 05/08/21 07:37 APTT 23.0 Sec. (24.2-36.6) L 05/08/21 07:37 ABG pH 7.242 pH Units (7.350-7.450) L 05/08/21 14:25 ABG pCO2 71.6 mm Hg 05/08/21 14:25 ABG pO2 119.4 mm Hg (80.0-90.0) H 05/08/21 14:25 ABG HCO3 30.1 mmol/L (20.0-26.0) H 05/08/21 14:25 ABG O2 Saturation 97.7 % (95.0-99.0) 05/08/21 14:25 ABG O2 Content 18.9 (0.0-44) 05/08/21 14:25 ABG Base Excess 0.7 mmol/L (-2.0-3.0) 05/08/21 14:25 ABG Hemoglobin 14.1 gm/dl (12.0-16.0) 05/08/21 14:25 ABG Carboxyhemoglobin 2.4 % (0.0-5.0) 05/08/21 14:25 ABG Methemoglobin 0.7 % (0.0-1.5) 05/08/21 14:25 Oxyhemoglobin 94.7 % (95.0-99.0) L 05/08/21 14:25 FiO2 21 % 05/08/21 14:25 Sodium 142 mmol/L (137-145) 05/09/21 10:25 Potassium 3.6 mmol/L (3.6-5.0) 05/09/21 10:25 Chloride 104.9 mmol/L (98-107) 05/09/21 10:25 Carbon Dioxide 26 mmol/L (22-30) 05/09/21 10:25 Anion Gap 15 mmol/L 05/09/21 10:25 BUN 33 mg/dL (7-17) H 05/09/21 10:25 Creatinine 0.6 mg/dL (0.6-1.2) 05/09/21 10:25 Estimated GFR > 60 ml/min 05/09/21 10:25 BUN/Creatinine Ratio 55 % 05/09/21 10:25 Glucose 68 mg/dL (65-100) 05/09/21 10:25 POC Glucose 105 mg/dL (70-105) 05/10/21 07:12 Lactic Acid 1.50 mmol/L (0.7-2.0) 05/08/21 07:37 Calcium 7.5 mg/dL (8.4-10.2) L D 05/09/21 10:25 Total Bilirubin 0.30 mg/dL (0.1-1.2) 05/08/21 07:37 Direct Bilirubin < 0.2 mg/dL (0-0.2) 05/08/21 07:37 Indirect Bilirubin 0.1 mg/dL 05/08/21 07:37 AST 17 units/L (5-40) 05/08/21 07:37 ALT 15 units/L (7-56) 05/08/21 07:37 Alkaline Phosphatase 102 units/L (35-129) 05/08/21 07:37 Troponin T 0.023 ng/mL (0.00-0.029) 05/08/21 15:22 NT-Pro-B Natriuret Pep 294.2 pg/mL (0-900) 05/08/21 07:37 Total Protein 6.9 g/dL (6.3-8.2) 05/08/21 07:37 Albumin 4.0 g/dL (3.9-5) 05/08/21 07:37 Albumin/Globulin Ratio 1.4 % 05/08/21 07:37 Procalcitonin 61.19 ng/mL (<0.15) 05/09/21 10:25 Urine Color Yellow (Yellow) 05/08/21 08:21 Urine Turbidity Clear (Clear) 05/08/21 08:21 Urine pH 5.0 (5.0-7.0) 05/08/21 08:21 Ur Specific [place] 1.030 (1.003-1.030) 05/08/21 08:21 Urine Protein 30 mg/dl mg/dL (Negative) 05/08/21 08:21 Urine Glucose (UA) Negative mg/dL (Negative) 05/08/21 08:21 Urine Ketones Negative mg/dL (Negative) 05/08/21 08:21 Urine Blood Trace (Negative) 05/08/21 08:21 Urine Nitrite Negative (Negative) 05/08/21 08:21 Ur Reducing Substances Not Reportable 05/08/21 08:21 Urine Bilirubin Negative (Negative) 05/08/21 08:21 Urine Ictotest Not Reportable 05/08/21 08:21 Urine Urobilinogen < 2.0 mg/dL (<2.0) 05/08/21 08:21 Ur Leukocyte Esterase Small (Negative) 05/08/21 08:21 Urine WBC (Auto) 3.0 /HPF (0.0-6.0) 05/08/21 08:21 Urine RBC (Auto) 44.0 /HPF (0.0-6.0) 05/08/21 08:21 U Epithel Cells (Auto) 3.0 /HPF (0-13.0) 05/08/21 08:21 Calcium Oxalate Crystal 2+ 05/08/21 08:21 Coronavirus (PCR) Negative (Negative) 05/08/21 09:36 Microbiology: Microbiology 05/08/21 07:37 Peripheral/Venous Blood Culture - Preliminary NO GROWTH AFTER 48 HOURS 05/08/21 07:37 Peripheral/Venous Blood Culture - Preliminary NO GROWTH AFTER 48 HOURS Antonio/IV: Voiding Method External Female Catheter Active Medications - Current Medications Current Medications: Generic Name Dose Route Start Last Admin Trade Name Freq PRN Reason Stop Dose Admin Acetaminophen 650 mg 05/08/21 10:00 Acetaminophen 325 Mg Tab PO Q4H PRN Pain MILD(1-3)/Fever >100.5/WHITE Dexamethasone 8 mg 05/08/21 10:00 05/09/21 09:49 Dexamethasone 4 Mg/Ml Vial IV 8 mg DAILY ALAN Administration Dextrose 0 ml 05/09/21 12:10 05/09/21 12:29 Dextrose 10% *Hypoglycemia IV 50 ml PRN PRN Administration Hypoglycemia Protocol Enoxaparin Sodium 40 mg 05/08/21 10:00 05/09/21 09:23 Enoxaparin 40 Mg/0.4 Ml Inj SUB-Q 40 mg QDAY@1000 ALAN Administration Cefepime HCl 1 gm in 100 mls @ 200 mls/hr 05/08/21 15:00 05/10/21 07:56 Cefepime/Ns 1 Gm/100 Ml IV 05/12/21 14:59 200 mls/hr Q8H ALAN Administration Protocol Vancomycin HCl 750 mg/ Sodium 265 mls @ 166.667 mls/hr 05/09/21 08:00 05/09/21 08:27 Chloride IV 166.667 mls/hr Q24H ALAN Administration Lorazepam 1 mg 05/08/21 15:30 05/09/21 09:23 Lorazepam 2 Mg/Ml Vial IV 1 mg Q8H PRN Administration Agitation Methylprednisolone Sodium Succinate 40 mg 05/09/21 14:00 05/10/21 05:36 Methylprednisolone Sod Succinate 40 Mg/1 Ml Inj IV 40 mg Q8HR ALAN Administration Morphine Sulfate 2 mg 05/08/21 10:00 05/10/21 05:48 Morphine 2 Mg/1 Ml Inj IV 2 mg Q4H PRN Administration Pain , Severe (7-10) Ondansetron HCl 4 mg 05/08/21 10:00 Ondansetron 4 Mg/2 Ml Inj IV Q8H PRN Nausea And Vomiting Oxycodone/Acetaminophen 1 tab 05/08/21 10:00 Oxycodone /Acetaminophen 5-325mg Tab PO Q6H PRN Pain, Moderate (4-6) Sodium Chloride 10 ml 05/08/21 10:00 05/09/21 21:09 Sodium Chloride 0.9% 10 Ml Flush Syringe IV 10 ml BID ALAN Administration Sodium Chloride 10 ml 05/08/21 10:00 Sodium Chloride 0.9% 10 Ml Flush Syringe IV PRN PRN LINE FLUSH Nutrition/Malnutrition Assess - Dietary Evaluation Nutrition/Malnutrition Findings: Nutrition Notes Start: 05/08/21 16:45 Freq: Status: Active Protocol: Document 05/09/21 14:41 SRINIVAS (Rec: 05/09/21 14:50 SRINIVAS [id number]) Nutrition Notes Initial or Follow up Brief Note Current Diagnosis COPD,Sepsis,Hypertension, Respiratory Failure Other Pertinent Diagnosis CHF, SOB, Leukocytosis, Respiratory Acidosis, Hypokalemia. Current Diet NPO (since 05/08 09:13). Height 5 ft Weight 40.823 kg [place] Body Weight (kg) 45.45 BMI 17.5 Weight change and time frame No body weight change reported . Weight Status Underweight Subjective/Other Information RD consult for Low BMI assessment. Pt continues NPO. Pt's Low BMI seems to correspond to a natural body composition, and not related to a sudden loss of body weight nor chronic malnutrition, since none were mentioned in the Physical Assessment History or the Progress notes. Percent of energy/protein needs met: Pt currently on NPO. Nutrition Intervention Follow-Up By: 05/12/21 Additional Comments Will reassess PO intake of meals at F/U, as well as the need for ONS. When pertinent, start monitoring food tolerance, %PO intake of meals, and BM.
[2021-05-10] MEDS: VANCOMYCIN 750 MG in SODIUM CHLORIDE 0.9% 250ML 250 ML IV SCH (08:40)
[2021-05-10] MEDS: ENOXAPARIN 40 MG/0.4 ML INJ SUB-Q SCH (10:37)
--- NOTE | 2021-05-10 11:50 | Progress Note ---
Assessment and Plan Cultures: 05/08/2021 blood culture: no growth A/P: 76-year-old female with CHF, COPD, hypertension admitted from home with worsening shortness of breath over the last week to 10 days, initially she was admitted for [address] [facility] with pneumonia and sent home, then readmitted to [place] and was discharged home after a few days now with: #Severe sepsis, secondary to pneumonia: ?aspiration. Procalcitonin 61.1. #Acute hypoxic respiratory failure: was on BiPAP. Pulmonary following. On alan roids. Recs: -continue IV cefepime, vancomycin, D3 of 5 -f/u MRSA nasal PCR, if negative, can stop vancomycin Ruthann Odom MD, FACP, ROWAN [facility] ([facility]) O: [phone] F: [phone] C: [phone] Subjective Date of service: 05/10/21 Interval history: Awake, alert, no fever. Remains off BiPAP. Family members at bedside. Patient states she feels much better. No nausea, vomiting. Objective - Exam Narrative Exam: Physical Exam: Constitutional: awake, alert, answering questions, no distress Head, Ears, Nose: Normocephalic, atraumatic. External ears, nose normal Eyes: Conjunctivae/corneas clear. No icterus. No ptosis. Neck: Supple, no meningeal signs Cardiovascular: S1, S2 + Respiratory: AE fair b/l GI: Soft, non-tender; bowel sounds normal. No peritoneal signs Musculoskeletal: trace pedal edema, no cyanosis Skin: No rash or abscess Hem/Lymphatic: No palpable cervical or supraclavicular nodes. No lymphangitis Psych: calm, no agitation Neurological: awake, alert, oriented, answering questions - Constitutional Vitals: Vital Signs Temp Pulse Resp BP Pulse Ox 97.4 F L 107 H 18 114/58 97 05/10/21 07:15 05/10/21 07:15 05/10/21 07:15 05/10/21 07:15 05/10/21 09:14 Temperature -Last 24 Hours Temperature 97.4 F Temperature 97.9 F Temperature 97.8 F Temperature 97.6 F Temperature 95.5 F - Labs CBC & Chem 7: 05/09/21 10:25 05/09/21 10:25 Labs: Abnormal lab results 05/09/21 05/09/21 05/10/21 Range/Units 10:25 10:25 05:40 Lymphocytes % (Manual) 4.0 L (13.4-35.0) % Lymphocytes # (Manual) 0.4 L (1.2-5.4) K/mm3 POC Glucose 106 H (70-105) mg/dL Calcium 7.5 L D (8.4-10.2) mg/dL
--- NOTE | 2021-05-10 13:47 | Progress Note ---
Assessment and Plan 76 y/o female with acute vs acute on chronic respiratory failure from COPD exacerbation secondary to persistent pneumonia. 05/10/21: Consider switching to PO prednisone in the next 24-48 hours. Would suggest 60 daily with the following taper: 60 for 4 days, 40 for 4 days, 20 for 4 days then 10 indefinitely. Bipap PRN and night time use. Hopeful family will elect to do home hospice as this is most appropriate, given current state. 1. Will add some IV steroids if oK with primary team 2. Agree with IV abx therapy 3. Bipap should be used PRN and at night 4. Long discussion with daughter at bedside, pending how long abx therapy is recommended and what form, she is leaning towards home hospice which is very reasonable and appropriate for this patient. She has had clinical decline since her in February. Subjective Date of service: 05/10/21 Interval history: Down to 8 liters. Grandson at bedside. Objective Vital Signs - 12hr 05/10/21 05/10/21 05/10/21 03:53 05:00 07:15 Temperature 97.9 F 97.4 F L Pulse Rate 105 H 105 H 107 H Respiratory 19 18 Rate Blood Pressure 114/55 114/58 O2 Sat by Pulse 97 92 Oximetry 05/10/21 05/10/21 05/10/21 09:03 09:14 11:39 Temperature 98.0 F Pulse Rate 107 H Respiratory 18 Rate Blood Pressure 132/68 O2 Sat by Pulse 97 97 99 Oximetry Constitutional: asleep Ascultation: Bilateral: diminished breath sounds CBC and BMP: 05/09/21 10:25 05/09/21 10:25 ABG, PT/INR, D-dimer: ABG ABG pH 7.242 pH Units (7.350-7.450) L 05/08/21 14:25 ABG pCO2 71.6 mm Hg 05/08/21 14:25 ABG pO2 119.4 mm Hg (80.0-90.0) H 05/08/21 14:25 ABG O2 Saturation 97.7 % (95.0-99.0) 05/08/21 14:25 PT/INR, D-dimer PT 12.7 Sec. (12.2-14.9) 05/08/21 07:37 INR 0.87 (0.87-1.13) 05/08/21 07:37 Abnormal lab findings: Abnormal Labs 05/08/21 05/08/21 05/08/21 07:37 07:37 07:37 WBC 18.7 H RBC 5.09 H Hgb 15.3 H Hct 47.0 H Seg Neuts % (Manual) 93.0 H Lymphocytes % (Manual) 5.0 L Seg Neutrophils # Man 17.4 H Lymphocytes # (Manual) 0.9 L APTT 23.0 L ABG pH ABG pO2 ABG HCO3 ABG O2 Saturation Oxyhemoglobin Potassium 3.0 L Chloride 93.6 L Carbon Dioxide 32 H BUN 18 H Creatinine 0.5 L Glucose 179 H POC Glucose Calcium 05/08/21 05/08/21 05/09/21 08:01 14:25 10:25 WBC RBC Hgb Hct Seg Neuts % (Manual) Lymphocytes % (Manual) 4.0 L Seg Neutrophils # Man Lymphocytes # (Manual) 0.4 L APTT ABG pH 7.228 L 7.242 L ABG pO2 315.9 H 119.4 H ABG HCO3 33.4 H 30.1 H ABG O2 Saturation 99.5 H Oxyhemoglobin 94.7 L Potassium Chloride Carbon Dioxide BUN Creatinine Glucose POC Glucose Calcium 05/09/21 05/10/21 10:25 05:40 WBC RBC Hgb Hct Seg Neuts % (Manual) Lymphocytes % (Manual) Seg Neutrophils # Man Lymphocytes # (Manual) APTT ABG pH ABG pO2 ABG HCO3 ABG O2 Saturation Oxyhemoglobin Potassium Chloride Carbon Dioxide BUN 33 H Creatinine Glucose POC Glucose 106 H Calcium 7.5 L D
--- NOTE | 2021-05-10 15:27 | Fluoroscopy Report ---
MODIFIED BARIUM SWALLOW INDICATION: dysphagia TECHNIQUE: Swallowing was evaluated in the lateral position under direct fluoroscopy. FINDINGS: The patient was evaluated with thin liquid, puree and semisolid consistencies. Deglutition was normal. No aspiration or penetration was witnessed. IMPRESSION: Unremarkable exam. Fluoroscopic time: 0.9 minutes Number of fluoroscopic images: 1 Signer Name: Spenser Crow Jr, MD Signed: 05/10/2021 3:20 PM Workstation Name: [id number]
[2021-05-10] MEDS: ACETAMINOPHEN 325 MG TAB PO PRN (15:52)
[2021-05-11] MEDS: MORPHINE 2 MG/1 ML INJ IV PRN ×6 (01:48→23:00)
[2021-05-11] MEDS: methylPREDNISolone Sod Succinate 40 MG/1 ML INJ IV SCH ×3 (05:55→21:37)
[2021-05-11] MEDS: CEFEPIME/NS 1 GM/100 ML 1 GM/100 ML BAG IV SCH ×3 (08:55→23:00)
[2021-05-11] MEDS: ACETAMINOPHEN 325 MG TAB PO PRN ×2 (08:56→15:34)
[2021-05-11] MEDS: VANCOMYCIN 750 MG in SODIUM CHLORIDE 0.9% 250ML 250 ML IV SCH (08:56)
[2021-05-11] MEDS: ENOXAPARIN 40 MG/0.4 ML INJ SUB-Q SCH (09:05)
--- NOTE | 2021-05-11 10:30 | Progress Note ---
Assessment and Plan Cultures: 05/08/2021 blood culture: no growth MRSA nasal PCR: negative A/P: 76-year-old female with CHF, COPD, hypertension admitted from home with worsening shortness of breath over the last week to 10 days, initially she was admitted for 1 day at [facility] with pneumonia and sent home, then readmitted to [place] and was discharged home after a few days now with: #Severe sepsis, secondary to pneumonia: ?aspiration. Procalcitonin 61.1 -> 39.12. #Acute hypoxic respiratory failure: was on BiPAP. Pulmonary following. On steroids. Recs: -continue IV cefepime D4 of 5 -MRSA nasal PCR is negative, agree with stopping vancomycin Ruthann Odom MD, FACP, R[facility] ([facility] O: [phone] F: [phone] C: [phone] Subjective Date of service: 05/11/21 Interval history: Awake, alert, no fever. Remains on nasal cannula. Family members at bedside including daughter. Patient complains of pain all over. No nausea, vomiting. Objective - Exam Narrative Exam: Physical Exam: Constitutional: awake, alert, answering questions, no distress Head, Ears, Nose: Normocephalic, atraumatic. External ears, nose normal Eyes: Conjunctivae/corneas clear. No icterus. No ptosis. Neck: Supple, no meningeal signs Cardiovascular: S1, S2 + Respiratory: AE fair b/l GI: Soft, non-tender; bowel sounds normal. No peritoneal signs Musculoskeletal: trace pedal edema, no cyanosis Skin: No rash or abscess Hem/Lymphatic: No palpable cervical or supraclavicular nodes. No lymphangitis Psych: calm, no agitation Neurological: awake, alert, oriented, answering questions - Constitutional Vitals: Vital Signs Temp Pulse Resp BP Pulse Ox 98.0 F 105 H 16 142/77 97 05/11/21 08:10 05/11/21 08:10 05/11/21 08:10 05/11/21 08:10 05/11/21 08:10 Temperature -Last 24 Hours Temperature 98.0 F Temperature 97.6 F Temperature 97.6 F Temperature 97.6 F Temperature 98.4 F Temperature 98.0 F - Labs CBC & Chem 7: 05/09/21 10:25 05/09/21 10:25 Labs: Abnormal lab results 05/10/21 05/10/21 Range/Units 11:37 16:57 POC Glucose 121 H 138 H (70-105) mg/dL
--- NOTE | 2021-05-11 22:01 | Progress Note ---
Assessment and Plan Assessment and plan: Patient is a 76-year-old female past medical history of congestive heart failure, COPD (on 2-3 L nasal cannula at home), hypertension who has been experiencing multiple episodes of shortness of breath complicated by hypoxia resulting in hospital admission and treatment with antibiotics before eventual d ischarge. The patient's daughter endorses the patient being admitted to 2 other [facility] ([facility] and [place]) for similar presentations. The patient was last discharged from the hospital on 05/03/2021 (at [facility]). According to the patient's daughter, she has been having worsening symptoms, and the patient was transported via EMS to [facility]. In the ED, the patient was found to be hypotensive (99/45), heart rate 125, respiratory rate 30, ABG 7.22/81.9/315 on 100% FiO2 (BiPAP). Patient was found to have unremarkable lactic acid and pro BNP. Patient was initiated on IV fluids, cefepime, vancomycin. Chest x-ray was suggestive of right basilar pneumonia. The patient is being admitted for severe sepsis secondary to pneumonia complicated by acute hypoxic respiratory failure. Worsening respiratory status yesterday will be transfer to imcu monitoring due to worsening respiratory status on bipap. Hospital course: 05/09: CT chest ordered demonstrated severe rt sided pna with extensive emphysema. Spoke at length with daughter who states she would like to pursue home hospice if no improvement in clinical status in next 24-48hrs. D/w pulmonary who is familiar with this patient case /family and agrees with plan as well. D/w CM re: home hospice plan. 05/10: Wean O2 as sats tolerate. Working with CM for home hospice arrangements. #Acute on chronic hypoxic respiratory failure #Respiratory acidosis -AB.22/81.9/315 100% FiO2 - etiology: Likely infectious in the setting of possible community-acquired pneumonia. - baseline oxygen requirements: 2-3 L nasal cannula - supplemental oxygen: BiPAP, now on salter nasal cannula - Continue protocol: continue pulse oximetry, wean oxygen as tolerated, ordered incentive spirometry and educated patient on how to use it and its importance. Pulmonology consulted; IV steroids, IV antibiotic therapy, BiPAP as needed. Infectious disease consulted, IV cefepime/vanco. - 05/09 CT Chest w/o con pending #Severe sepsis #Leukocytosis Hypotension, heart rate 125, respiratory rate 30, WBC 18.7 Chest x-ray concerning for right basilar pneumonia with possible left lower lobe involvement Status post 3 L IV fluid resuscitation, vancomycin, and cefepime in the ED Continue vancomycin and cefepime. Blood cultures drawn. Urinalysis revealing hematuria but otherwise unremarkable for possible cystitis. Coronavirus PCR unremarkable. maintain map > 65 Infectious disease consulted; appreciate recs Continue to monitor #History of COPD Recently initiated on home oxygen of 2-3 L Continue scheduled DuoNebs #Hypokalemia Potassium 3.0. Repleted. Trend with daily BMP. #Social Starting of hospice was discussed with the patient and her daughter at length due to over prognosis with the patient's acute on hypoxic failure in the setting of likely end-stage COPD. The daughter expresses understanding; however, no decision has been reached regarding hospice. The pros and cons have been discussed miriam at length by 2 different physicians. The patient's daughter is very understanding and understands that hospice would provide additional resources/supplies in addition to being able to control her mother's symptoms more efficiently. Family is trying to make a decision regarding hospice overall. #Advanced care planning -Disease education conducted, care plan discussed, diagnoses discussed, prognosis discussed, and patient acknowledges understanding with care plan -Time: +30 min Disposition Plan: Continue medical management Total Time Spent with Patient (Minutes): 60 minutes History Interval history: No acute events overnight Hospitalist Physical - Constitutional Vitals: Temp Pulse Resp BP Pulse Ox 97.4 F L 112 H 18 159/82 98 05/11/21 19:04 05/11/21 19:04 05/11/21 19:04 05/11/21 19:04 05/11/21 20:27 General appearance: Present: severe distress, cachectic - EENT Eyes: Present: PERRL, EOM intact ENT: hearing intact, clear oral mucosa, dentition normal - Neck Neck: Present: supple, normal ROM - Respiratory Respiratory effort: labored Respiratory: right: diminished (On 8 L nasal cannula), bilateral: rhonchi - Cardiovascular Rhythm: regular Heart Sounds: Present: S1 & S2 - Extremities Extremities: no ischemia, pulses intact, pulses symmetrical, No edema, normal temperature, normal color Peripheral Pulses: within normal limits - Abdominal General gastrointestinal: soft, non-tender, non-distended, normal bowel sounds - Integumentary Integumentary: Present: clear, warm, dry - Psychiatric Psychiatric: appropriate mood/affect, memory intact, cooperative - Neurologic Neurologic: CNII-XII intact - Allied Health Allied health notes reviewed: nursing HEART Score - HEART Score Troponin: Troponin T 0.023 ng/mL (0.00-0.029) 05/08/21 15:22 Results - Labs CBC & Chem 7: 05/09/21 10:25 05/09/21 10:25 Labs: Laboratory Last Values WBC 10.4 K/mm3 (4.5-11.0) 05/09/21 10:25 RBC 4.16 M/mm3 (3.65-5.03) 05/09/21 10:25 Hgb 12.4 gm/dl (10.1-14.3) 05/09/21 10:25 Hct 38.9 % (30.3-42.9) D 05/09/21 10:25 MCV 94 fl (79-97) 05/09/21 10:25 MCH 30 pg (28-32) 05/09/21 10:25 MCHC 32 % (30-34) 05/09/21 10:25 RDW 14.9 % (13.2-15.2) 05/09/21 10:25 Plt Count 223 K/mm3 (140-440) 05/09/21 10:25 Add Manual Diff Complete 05/09/21 10:25 Total Counted 100 05/09/21 10:25 Seg Neutrophils % Track Helper 05/09/21 10:25 Seg Neuts % (Manual) 67.0 % (40.0-70.0) 05/09/21 10:25 Band Neutrophils % 25.0 % 05/09/21 10:25 Lymphocytes % (Manual) 4.0 % (13.4-35.0) L 05/09/21 10:25 Reactive Lymphs % (Man) 0 % 05/09/21 10:25 Monocytes % (Manual) 2.0 % (0.0-7.3) 05/09/21 10:25 Eosinophils % (Manual) 0 % (0.0-4.3) 05/09/21 10:25 Basophils % (Manual) 0 % (0.0-1.8) 05/09/21 10:25 Metamyelocytes % 2.0 % 05/09/21 10:25 Myelocytes % 0 % 05/09/21 10:25 Promyelocytes % 0 % 05/09/21 10:25 Blast Cells % 0 % 05/09/21 10:25 Nucleated RBC % Not Reportable 05/09/21 10:25 Seg Neutrophils # Man 7.0 K/mm3 (1.8-7.7) 05/09/21 10:25 Band Neutrophils # 2.6 K/mm3 05/09/21 10:25 Lymphocytes # (Manual) 0.4 K/mm3 (1.2-5.4) L 05/09/21 10:25 Abs React Lymphs (Man) 0.0 K/mm3 05/09/21 10:25 Monocytes # (Manual) 0.2 K/mm3 (0.0-0.8) 05/09/21 10:25 Eosinophils # (Manual) 0.0 K/mm3 (0.0-0.4) 05/09/21 10:25 Basophils # (Manual) 0.0 K/mm3 (0.0-0.1) 05/09/21 10:25 Metamyelocytes # 0.2 K/mm3 05/09/21 10:25 Myelocytes # 0.0 K/mm3 05/09/21 10:25 Promyelocytes # 0.0 K/mm3 05/09/21 10:25 Blast Cells # 0.0 K/mm3 05/09/21 10:25 WBC Morphology Not Reportable 05/09/21 10:25 Hypersegmented Neuts Not Reportable 05/09/21 10:25 Hyposegmented Neuts 1+ 05/09/21 10:25 Hypogranular Neuts Not Reportable 05/09/21 10:25 Smudge Cells Not Reportable 05/09/21 10:25 Toxic Granulation Not Reportable 05/09/21 10:25 Toxic Vacuolation Not Reportable 05/09/21 10:25 Dohle Bodies Not Reportable 05/09/21 10:25 Pelger-Huet Anomaly Not Reportable 05/09/21 10:25 Jomar Rods Not Reportable 05/09/21 10:25 Platelet Estimate Consistent w auto 05/09/21 10:25 Clumped Platelets Not Reportable 05/09/21 10:25 Plt Clumps, EDTA Not Reportable 05/09/21 10:25 Large Platelets Not Reportable 05/09/21 10:25 Giant Platelets Not Reportable 05/09/21 10:25 Platelet Satelliting Not Reportable 05/09/21 10:25 Plt Morphology Comment Not Reportable 05/09/21 10:25 RBC Morphology Not Reportable 05/09/21 10:25 Dimorphic RBCs Not Reportable 05/09/21 10:25 Polychromasia Not Reportable 05/09/21 10:25 Hypochromasia Not Reportable 05/09/21 10:25 Poikilocytosis Not Reportable 05/09/21 10:25 Anisocytosis 1+ 05/09/21 10:25 Microcytosis Not Reportable 05/09/21 10:25 Macrocytosis Not Reportable 05/09/21 10:25 Spherocytes Not Reportable 05/09/21 10:25 Pappenheimer Bodies Not Reportable 05/09/21 10:25 Sickle Cells Not Reportable 05/09/21 10:25 Target Cells Not Reportable 05/09/21 10:25 Tear Drop Cells Not Reportable 05/09/21 10:25 Ovalocytes Not Reportable 05/09/21 10:25 Helmet Cells Not Reportable 05/09/21 10:25 Cardenas-Lanark Bodies Not Reportable 05/09/21 10:25 [place] Rings Not Reportable 05/09/21 10:25 [place] Cells Not Reportable 05/09/21 10:25 Bite Cells Not Reportable 05/09/21 10:25 Crenated Cell Not Reportable 05/09/21 10:25 Elliptocytes Not Reportable 05/09/21 10:25 Acanthocytes (Spur) Not Reportable 05/09/21 10:25 Rouleaux Not Reportable 05/09/21 10:25 Hemoglobin C Crystals Not Reportable 05/09/21 10:25 Schistocytes Not Reportable 05/09/21 10:25 Malaria parasites Not Reportable 05/09/21 10:25 Clive Bodies Not Reportable 05/09/21 10:25 Hem Pathologist Commnt No 05/09/21 10:25 PT 12.7 Sec. (12.2-14.9) 05/08/21 07:37 INR 0.87 (0.87-1.13) 05/08/21 07:37 APTT 23.0 Sec. (24.2-36.6) L 05/08/21 07:37 ABG pH 7.242 pH Units (7.350-7.450) L 05/08/21 14:25 ABG pCO2 71.6 mm Hg 05/08/21 14:25 ABG pO2 119.4 mm Hg (80.0-90.0) H 05/08/21 14:25 ABG HCO3 30.1 mmol/L (20.0-26.0) H 05/08/21 14:25 ABG O2 Saturation 97.7 % (95.0-99.0) 05/08/21 14:25 ABG O2 Content 18.9 (0.0-44) 05/08/21 14:25 ABG Base Excess 0.7 mmol/L (-2.0-3.0) 05/08/21 14:25 ABG Hemoglobin 14.1 gm/dl (12.0-16.0) 05/08/21 14:25 ABG Carboxyhemoglobin 2.4 % (0.0-5.0) 05/08/21 14:25 ABG Methemoglobin 0.7 % (0.0-1.5) 05/08/21 14:25 Oxyhemoglobin 94.7 % (95.0-99.0) L 05/08/21 14:25 FiO2 21 % 05/08/21 14:25 Sodium 142 mmol/L (137-145) 05/09/21 10:25 Potassium 3.6 mmol/L (3.6-5.0) 05/09/21 10:25 Chloride 104.9 mmol/L (98-107) 05/09/21 10:25 Carbon Dioxide 26 mmol/L (22-30) 05/09/21 10:25 Anion Gap 15 mmol/L 05/09/21 10:25 BUN 33 mg/dL (7-17) H 05/09/21 10:25 Creatinine 0.6 mg/dL (0.6-1.2) 05/09/21 10:25 Estimated GFR > 60 ml/min 05/09/21 10:25 BUN/Creatinine Ratio 55 % 05/09/21 10:25 Glucose 68 mg/dL (65-100) 05/09/21 10:25 POC Glucose 138 mg/dL (70-105) H 05/10/21 16:57 Lactic Acid 1.50 mmol/L (0.7-2.0) 05/08/21 07:37 Calcium 7.5 mg/dL (8.4-10.2) L D 05/09/21 10:25 Total Bilirubin 0.30 mg/dL (0.1-1.2) 05/08/21 07:37 Direct Bilirubin < 0.2 mg/dL (0-0.2) 05/08/21 07:37 Indirect Bilirubin 0.1 mg/dL 05/08/21 07:37 AST 17 units/L (5-40) 05/08/21 07:37 ALT 15 units/L (7-56) 05/08/21 07:37 Alkaline Phosphatase 102 units/L (35-129) 05/08/21 07:37 Troponin T 0.023 ng/mL (0.00-0.029) 05/08/21 15:22 NT-Pro-B Natriuret Pep 294.2 pg/mL (0-900) 05/08/21 07:37 Total Protein 6.9 g/dL (6.3-8.2) 05/08/21 07:37 Albumin 4.0 g/dL (3.9-5) 05/08/21 07:37 Albumin/Globulin Ratio 1.4 % 05/08/21 07:37 Procalcitonin 39.12 ng/mL (<0.15) 05/10/21 05:37 Urine Color Yellow (Yellow) 05/08/21 08:21 Urine Turbidity Clear (Clear) 05/08/21 08:21 Urine pH 5.0 (5.0-7.0) 05/08/21 08:21 Ur Specific [place] 1.030 (1.003-1.030) 05/08/21 08:21 Urine Protein 30 mg/dl mg/dL (Negative) 05/08/21 08:21 Urine Glucose (UA) Negative mg/dL (Negative) 05/08/21 08:21 Urine Ketones Negative mg/dL (Negative) 05/08/21 08:21 Urine Blood Trace (Negative) 05/08/21 08:21 Urine Nitrite Negative (Negative) 05/08/21 08:21 Ur Reducing Substances Not Reportable 05/08/21 08:21 Urine Bilirubin Negative (Negative) 05/08/21 08:21 Urine Ictotest Not Reportable 05/08/21 08:21 Urine Urobilinogen < 2.0 mg/dL (<2.0) 05/08/21 08:21 Ur Leukocyte Esterase Small (Negative) 05/08/21 08:21 Urine WBC (Auto) 3.0 /HPF (0.0-6.0) 05/08/21 08:21 Urine RBC (Auto) 44.0 /HPF (0.0-6.0) 05/08/21 08:21 U Epithel Cells (Auto) 3.0 /HPF (0-13.0) 05/08/21 08:21 Calcium Oxalate Crystal 2+ 05/08/21 08:21 Nasal Screen MRSA (PCR) Negative (Negative) 05/09/21 Unknown Coronavirus (PCR) Negative (Negative) 05/08/21 09:36 Microbiology: Microbiology 05/08/21 Unknown Urine,Clean Catch Urine Culture - Final NO GROWTH AFTER 48 HOURS 05/08/21 07:37 Peripheral/Venous Blood Culture - Preliminary NO GROWTH AFTER 72 HOURS 05/08/21 07:37 Peripheral/Venous Blood Culture - Preliminary NO GROWTH AFTER 72 HOURS Antonio/IV: Voiding Method External Female Catheter Active Medications - Current Medications Current Medications: Generic Name Dose Route Start Last Admin Trade Name Freq PRN Reason Stop Dose Admin Acetaminophen 650 mg 05/08/21 10:00 05/11/21 15:34 Acetaminophen 325 Mg Tab PO 650 mg Q4H PRN Administration Pain MILD(1-3)/Fever >100.5/WHITE Dextrose 0 ml 05/09/21 12:10 05/09/21 12:29 Dextrose 10% *Hypoglycemia IV 50 ml PRN PRN Administration Hypoglycemia Protocol Enoxaparin Sodium 40 mg 05/08/21 10:00 05/11/21 09:05 Enoxaparin 40 Mg/0.4 Ml Inj SUB-Q 40 mg QDAY@1000 ALAN Administration Cefepime HCl 1 gm in 100 mls @ 200 mls/hr 05/08/21 15:00 05/11/21 15:35 Cefepime/Ns 1 Gm/100 Ml IV 05/12/21 14:59 200 mls/hr Q8H ALAN Administration Protocol Lorazepam 1 mg 05/08/21 15:30 05/09/21 09:23 Lorazepam 2 Mg/Ml Vial IV 1 mg Q8H PRN Administration Agitation Methylprednisolone Sodium Succinate 40 mg 05/09/21 14:00 05/11/21 21:37 Methylprednisolone Sod Succinate 40 Mg/1 Ml Inj IV 40 mg Q8HR ALAN Administration Morphine Sulfate 2 mg 05/11/21 13:12 05/11/21 18:50 Morphine 2 Mg/1 Ml Inj IV 2 mg Q3H PRN Administration Pain , Severe (7-10) Ondansetron HCl 4 mg 05/08/21 10:00 Ondansetron 4 Mg/2 Ml Inj IV Q8H PRN Nausea And Vomiting Oxycodone/Acetaminophen 1 tab 05/08/21 10:00 Oxycodone /Acetaminophen 5-325mg Tab PO Q6H PRN Pain, Moderate (4-6) Sodium Chloride 10 ml 05/08/21 10:00 05/11/21 21:37 Sodium Chloride 0.9% 10 Ml Flush Syringe IV 10 ml BID ALAN Administration Sodium Chloride 10 ml 05/08/21 10:00 Sodium Chloride 0.9% 10 Ml Flush Syringe IV PRN PRN LINE FLUSH Nutrition/Malnutrition Assess - Dietary Evaluation Nutrition/Malnutrition Findings: Nutrition Notes Start: 05/08/21 16:45 Freq: Status: Active Protocol: Document 05/09/21 14:41 SRINIVAS (Rec: 05/09/21 14:50 SRINIVAS [id number]) Nutrition Notes Initial or Follow up Brief Note Current Diagnosis COPD,Sepsis,Hypertension, Respiratory Failure Other Pertinent Diagnosis CHF, SOB, Leukocytosis, Respiratory Acidosis, Hypokalemia. Current Diet NPO (since 05/08 09:13). Height 5 ft Weight 40.823 kg [place] Body Weight (kg) 45.45 BMI 17.5 Weight change and time frame No body weight change reported . Weight Status Underweight Subjective/Other Information RD consult for Low BMI assessment. Pt continues NPO. Pt's Low BMI seems to correspond to a natural body composition, and not related to a sudden loss of body weight nor chronic malnutrition, since none were mentioned in the Physical Assessment History or the Progress notes. Percent of energy/protein needs met: Pt currently on NPO. Nutrition Intervention Follow-Up By: 05/12/21 Additional Comments Will reassess PO intake of meals at F/U, as well as the need for ONS. When pertinent, start monitoring food tolerance, %PO intake of meals, and BM.
[2021-05-12] MEDS: MORPHINE 2 MG/1 ML INJ IV PRN ×5 (02:39→23:24)
[2021-05-12] MEDS: methylPREDNISolone Sod Succinate 40 MG/1 ML INJ IV SCH ×3 (06:12→21:57)
--- NOTE | 2021-05-12 07:49 | Progress Note ---
Assessment and Plan Assessment and plan: Patient is a 76-year-old female past medical history of congestive heart failure, COPD (on 2-3 L nasal cannula at home), hypertension who has been experiencing multiple episodes of shortness of breath complicated by hypoxia resulting in hospital admission and treatment with antibiotics before eventual discharge. The patient's daughter endorses the patient being admitted to 2 other [facility] ([facility] and [facility]) for similar presentations. The patient was last discharged from the hospital on 05/03/2021 (at [facility]). According to the patient's daughter, she has been having worsening symptoms, and the patient was transported via EMS to [facility]. In the ED, the patient was found to be hypotensive (99/45), heart rate 125, respiratory rate 30, ABG 7.22/81.9/315 on 100% FiO2 (BiPAP). Patient was found to have unremarkable lactic acid and pro BNP. Patient was initiated on IV fluids, cefepime, vancomycin. Chest x-ray was suggestive of right basilar pneumonia. The patient is being admitted for severe sepsis secondary to pneumonia complicated by acute hypoxic respiratory failure. Worsening respiratory status yesterday will be transfer to imcu monitoring due to worsening respiratory status on bipap. Hospital course: 05/09: CT chest ordered demonstrated severe rt sided pna with extensive emphysema. Spoke at length with daughter who states she would like to pursue home hospice if no improvement in clinical status in next 24-48hrs. D/w pulmonary who is familiar with this patient case /family and agrees with plan as well. D/w CM re: home hospice plan. 05/10: Wean O2 as sats tolerate. Working with CM for home hospice arrangements. 05/11: Currently on [place] 8L/min. Working to wean to nasal cannula. D/w RN this AM about working to wean patient to 4-5L/min. If able to, then we will discharge patient to home. D/w patient PCP Dr. Church who will help assist with hospice arrangements outpatient. #Acute on chronic hypoxic respiratory failure #Respiratory acidosis -AB.22/81.9/315 100% FiO2 - etiology: Likely infectious in the setting of possible community-acquired pneumonia. - baseline oxygen requirements: 2-3 L nasal cannula - supplemental oxygen: BiPAP, now on [place] nasal cannula - Continue protocol: continue pulse oximetry, wean oxygen as tolerated, ordered incentive spirometry and educated patient on how to use it and its importance. Pulmonology consulted; IV steroids, IV antibiotic therapy, BiPAP as needed. Infectious disease consulted, IV cefepime/vanco. - 05/09 CT Chest w/o con pending #Severe sepsis #Leukocytosis Hypotension, heart rate 125, respiratory rate 30, WBC 18.7 Chest x-ray concerning for right basilar pneumonia with possible left lower lobe involvement Status post 3 L IV fluid resuscitation, vancomycin, and cefepime in the ED Continue vancomycin and cefepime. Blood cultures drawn. Urinalysis revealing hematuria but otherwise unremarkable for possible cystitis. Coronavirus PCR unremarkable. maintain map > 65 Infectious disease consulted; appreciate recs Continue to monitor #History of COPD Recently initiated on home oxygen of 2-3 L Continue scheduled DuoNebs #Hypokalemia Potassium 3.0. Repleted. Trend with daily BMP. #Social Starting of hospice was discussed with the patient and her daughter at length due to over prognosis with the patient's acute on hypoxic failure in the setting of likely end-stage COPD. The daughter expresses understanding; however, no decision has been reached regarding hospice. The pros and cons have been discussed miriam at length by 2 different physicians. The patient's daughter is very understanding and understands that hospice would provide additional resources/supplies in addition to being able to control her mother's symptoms more efficiently. Family is trying to make a decision regarding hospice overall. #Advanced care planning -Disease education conducted, care plan discussed, diagnoses discussed, prognosis discussed, and patient acknowledges understanding with care plan -Time: +30 min Disposition Plan: Continue medical management Total Time Spent with Patient (Minutes): 60 minutes History Interval history: Saw and examined patient at bedside today. Patient has episodes of confusion per daughter who showed me a video recording of confusion. Per daughter these will primarily happen in evenings or even in the AM. On my encounter, the patient appeared to be at her baseline. Hospitalist Physical - Physical exam Narrative exam: General appearance: Present: severe distress, cachectic - EENT Eyes: Present: PERRL, EOM intact ENT: hearing intact, clear oral mucosa - Respiratory Respiratory effort: labored, accessory muscle use Respiratory: bilateral: diminished - Cardiovascular Rhythm: regular Heart Sounds: Present: S1 & S2 - Extremities Extremities: no ischemia, pulses intact, pulses symmetrical, normal temperature, normal color Extremity abnormal: edema (1+ pitting edema) Peripheral Pulses: within normal limits - Abdominal General gastrointestinal: Present: soft, non-tender, non-distended, normal bowel sounds Female genitourinary: Present: deferred - Rectal Rectal Exam: deferred - Integumentary Integumentary: Present: clear, warm, dry - Neurologic Neurologic: CNII-XII intact - Allied Health Allied health notes reviewed: nursing - Constitutional Vitals: Temp Pulse Resp BP Pulse Ox 97.5 F L 105 H 18 157/83 98 05/12/21 04:03 05/12/21 04:03 05/12/21 04:03 05/12/21 04:03 05/12/21 04:03 General appearance: Present: severe distress, cachectic HEART Score - HEART Score Troponin: Troponin T 0.023 ng/mL (0.00-0.029) 05/08/21 15:22 Results - Labs CBC & Chem 7: 05/09/21 10:25 05/09/21 10:25 Labs: Laboratory Last Values WBC 10.4 K/mm3 (4.5-11.0) 05/09/21 10:25 RBC 4.16 M/mm3 (3.65-5.03) 05/09/21 10:25 Hgb 12.4 gm/dl (10.1-14.3) 05/09/21 10:25 Hct 38.9 % (30.3-42.9) D 05/09/21 10:25 MCV 94 fl (79-97) 05/09/21 10:25 MCH 30 pg (28-32) 05/09/21 10:25 MCHC 32 % (30-34) 05/09/21 10:25 RDW 14.9 % (13.2-15.2) 05/09/21 10:25 Plt Count 223 K/mm3 (140-440) 05/09/21 10:25 Add Manual Diff Complete 05/09/21 10:25 Total Counted 100 05/09/21 10:25 Seg Neutrophils % Hearing Aid Specialist 05/09/21 10:25 Seg Neuts % (Manual) 67.0 % (40.0-70.0) 05/09/21 10:25 Band Neutrophils % 25.0 % 05/09/21 10:25 Lymphocytes % (Manual) 4.0 % (13.4-35.0) L 05/09/21 10:25 Reactive Lymphs % (Man) 0 % 05/09/21 10:25 Monocytes % (Manual) 2.0 % (0.0-7.3) 05/09/21 10:25 Eosinophils % (Manual) 0 % (0.0-4.3) 05/09/21 10:25 Basophils % (Manual) 0 % (0.0-1.8) 05/09/21 10:25 Metamyelocytes % 2.0 % 05/09/21 10:25 Myelocytes % 0 % 05/09/21 10:25 Promyelocytes % 0 % 05/09/21 10:25 Blast Cells % 0 % 05/09/21 10:25 Nucleated RBC % Not Reportable 05/09/21 10:25 Seg Neutrophils # Man 7.0 K/mm3 (1.8-7.7) 05/09/21 10:25 Band Neutrophils # 2.6 K/mm3 05/09/21 10:25 Lymphocytes # (Manual) 0.4 K/mm3 (1.2-5.4) L 05/09/21 10:25 Abs React Lymphs (Man) 0.0 K/mm3 05/09/21 10:25 Monocytes # (Manual) 0.2 K/mm3 (0.0-0.8) 05/09/21 10:25 Eosinophils # (Manual) 0.0 K/mm3 (0.0-0.4) 05/09/21 10:25 Basophils # (Manual) 0.0 K/mm3 (0.0-0.1) 05/09/21 10:25 Metamyelocytes # 0.2 K/mm3 05/09/21 10:25 Myelocytes # 0.0 K/mm3 05/09/21 10:25 Promyelocytes # 0.0 K/mm3 05/09/21 10:25 Blast Cells # 0.0 K/mm3 05/09/21 10:25 WBC Morphology Not Reportable 05/09/21 10:25 Hypersegmented Neuts Not Reportable 05/09/21 10:25 Hyposegmented Neuts 1+ 05/09/21 10:25 Hypogranular Neuts Not Reportable 05/09/21 10:25 Smudge Cells Not Reportable 05/09/21 10:25 Toxic Granulation Not Reportable 05/09/21 10:25 Toxic Vacuolation Not Reportable 05/09/21 10:25 Dohle Bodies Not Reportable 05/09/21 10:25 Pelger-Huet Anomaly Not Reportable 05/09/21 10:25 Jomar Rods Not Reportable 05/09/21 10:25 Platelet Estimate Consistent w auto 05/09/21 10:25 Clumped Platelets Not Reportable 05/09/21 10:25 Plt Clumps, EDTA Not Reportable 05/09/21 10:25 Large Platelets Not Reportable 05/09/21 10:25 Giant Platelets Not Reportable 05/09/21 10:25 Platelet Satelliting Not Reportable 05/09/21 10:25 Plt Morphology Comment Not Reportable 05/09/21 10:25 RBC Morphology Not Reportable 05/09/21 10:25 Dimorphic RBCs Not Reportable 05/09/21 10:25 Polychromasia Not Reportable 05/09/21 10:25 Hypochromasia Not Reportable 05/09/21 10:25 Poikilocytosis Not Reportable 05/09/21 10:25 Anisocytosis 1+ 05/09/21 10:25 Microcytosis Not Reportable 05/09/21 10:25 Macrocytosis Not Reportable 05/09/21 10:25 Spherocytes Not Reportable 05/09/21 10:25 Pappenheimer Bodies Not Reportable 05/09/21 10:25 Sickle Cells Not Reportable 05/09/21 10:25 Target Cells Not Reportable 05/09/21 10:25 Tear Drop Cells Not Reportable 05/09/21 10:25 Ovalocytes Not Reportable 05/09/21 10:25 Helmet Cells Not Reportable 05/09/21 10:25 Cardenas-[place] Bodies Not Reportable 05/09/21 10:25 [place] Rings Not Reportable 05/09/21 10:25 [place] Cells Not Reportable 05/09/21 10:25 Bite Cells Not Reportable 05/09/21 10:25 Crenated Cell Not Reportable 05/09/21 10:25 Elliptocytes Not Reportable 05/09/21 10:25 Acanthocytes (Spur) Not Reportable 05/09/21 10:25 Rouleaux Not Reportable 05/09/21 10:25 Hemoglobin C Crystals Not Reportable 05/09/21 10:25 Schistocytes Not Reportable 05/09/21 10:25 Malaria parasites Not Reportable 05/09/21 10:25 Clive Bodies Not Reportable 05/09/21 10:25 Hem Pathologist Commnt No 05/09/21 10:25 PT 12.7 Sec. (12.2-14.9) 05/08/21 07:37 INR 0.87 (0.87-1.13) 05/08/21 07:37 APTT 23.0 Sec. (24.2-36.6) L 05/08/21 07:37 ABG pH 7.242 pH Units (7.350-7.450) L 05/08/21 14:25 ABG pCO2 71.6 mm Hg 05/08/21 14:25 ABG pO2 119.4 mm Hg (80.0-90.0) H 05/08/21 14:25 ABG HCO3 30.1 mmol/L (20.0-26.0) H 05/08/21 14:25 ABG O2 Saturation 97.7 % (95.0-99.0) 05/08/21 14:25 ABG O2 Content 18.9 (0.0-44) 05/08/21 14:25 ABG Base Excess 0.7 mmol/L (-2.0-3.0) 05/08/21 14:25 ABG Hemoglobin 14.1 gm/dl (12.0-16.0) 05/08/21 14:25 ABG Carboxyhemoglobin 2.4 % (0.0-5.0) 05/08/21 14:25 ABG Methemoglobin 0.7 % (0.0-1.5) 05/08/21 14:25 Oxyhemoglobin 94.7 % (95.0-99.0) L 05/08/21 14:25 FiO2 21 % 05/08/21 14:25 Sodium 142 mmol/L (137-145) 05/09/21 10:25 Potassium 3.6 mmol/L (3.6-5.0) 05/09/21 10:25 Chloride 104.9 mmol/L (98-107) 05/09/21 10:25 Carbon Dioxide 26 mmol/L (22-30) 05/09/21 10:25 Anion Gap 15 mmol/L 05/09/21 10:25 BUN 33 mg/dL (7-17) H 05/09/21 10:25 Creatinine 0.6 mg/dL (0.6-1.2) 05/09/21 10:25 Estimated GFR > 60 ml/min 05/09/21 10:25 BUN/Creatinine Ratio 55 % 05/09/21 10:25 Glucose 68 mg/dL (65-100) 05/09/21 10:25 POC Glucose 138 mg/dL (70-105) H 05/10/21 16:57 Lactic Acid 1.50 mmol/L (0.7-2.0) 05/08/21 07:37 Calcium 7.5 mg/dL (8.4-10.2) L D 05/09/21 10:25 Total Bilirubin 0.30 mg/dL (0.1-1.2) 05/08/21 07:37 Direct Bilirubin < 0.2 mg/dL (0-0.2) 05/08/21 07:37 Indirect Bilirubin 0.1 mg/dL 05/08/21 07:37 AST 17 units/L (5-40) 05/08/21 07:37 ALT 15 units/L (7-56) 05/08/21 07:37 Alkaline Phosphatase 102 units/L (35-129) 05/08/21 07:37 Troponin T 0.023 ng/mL (0.00-0.029) 05/08/21 15:22 NT-Pro-B Natriuret Pep 294.2 pg/mL (0-900) 05/08/21 07:37 Total Protein 6.9 g/dL (6.3-8.2) 05/08/21 07:37 Albumin 4.0 g/dL (3.9-5) 05/08/21 07:37 Albumin/Globulin Ratio 1.4 % 05/08/21 07:37 Procalcitonin 39.12 ng/mL (<0.15) 05/10/21 05:37 Urine Color Yellow (Yellow) 05/08/21 08:21 Urine Turbidity Clear (Clear) 05/08/21 08:21 Urine pH 5.0 (5.0-7.0) 05/08/21 08:21 Ur Specific [place] 1.030 (1.003-1.030) 05/08/21 08:21 Urine Protein 30 mg/dl mg/dL (Negative) 05/08/21 08:21 Urine Glucose (UA) Negative mg/dL (Negative) 05/08/21 08:21 Urine Ketones Negative mg/dL (Negative) 05/08/21 08:21 Urine Blood Trace (Negative) 05/08/21 08:21 Urine Nitrite Negative (Negative) 05/08/21 08:21 Ur Reducing Substances Not Reportable 05/08/21 08:21 Urine Bilirubin Negative (Negative) 05/08/21 08:21 Urine Ictotest Not Reportable 05/08/21 08:21 Urine Urobilinogen < 2.0 mg/dL (<2.0) 05/08/21 08:21 Ur Leukocyte Esterase Small (Negative) 05/08/21 08:21 Urine WBC (Auto) 3.0 /HPF (0.0-6.0) 05/08/21 08:21 Urine RBC (Auto) 44.0 /HPF (0.0-6.0) 05/08/21 08:21 U Epithel Cells (Auto) 3.0 /HPF (0-13.0) 05/08/21 08:21 Calcium Oxalate Crystal 2+ 05/08/21 08:21 Nasal Screen MRSA (PCR) Negative (Negative) 05/09/21 Unknown Coronavirus (PCR) Negative (Negative) 05/08/21 09:36 Microbiology: Microbiology 05/08/21 07:37 Peripheral/Venous Blood Culture - Preliminary NO GROWTH AFTER 4 DAYS 05/08/21 07:37 Peripheral/Venous Blood Culture - Preliminary NO GROWTH AFTER 4 DAYS 05/08/21 Unknown Urine,Clean Catch Urine Culture - Final NO GROWTH AFTER 48 HOURS Antonio/IV: Voiding Method External Female Catheter Active Medications - Current Medications Current Medications: Generic Name Dose Route Start Last Admin Trade Name Freq PRN Reason Stop Dose Admin Acetaminophen 650 mg 05/08/21 10:00 05/11/21 15:34 Acetaminophen 325 Mg Tab PO 650 mg Q4H PRN Administration Pain MILD(1-3)/Fever >100.5/WHITE Dextrose 0 ml 05/09/21 12:10 05/09/21 12:29 Dextrose 10% *Hypoglycemia IV 50 ml PRN PRN Administration Hypoglycemia Protocol Enoxaparin Sodium 40 mg 05/08/21 10:00 05/11/21 09:05 Enoxaparin 40 Mg/0.4 Ml Inj SUB-Q 40 mg QDAY@1000 ALAN Administration Cefepime HCl 1 gm in 100 mls @ 200 mls/hr 05/08/21 15:00 05/11/21 23:00 Cefepime/Ns 1 Gm/100 Ml IV 05/12/21 14:59 200 mls/hr Q8H ALAN Administration Protocol Lorazepam 1 mg 05/08/21 15:30 05/09/21 09:23 Lorazepam 2 Mg/Ml Vial IV 1 mg Q8H PRN Administration Agitation Methylprednisolone Sodium Succinate 40 mg 05/09/21 14:00 05/12/21 06:12 Methylprednisolone Sod Succinate 40 Mg/1 Ml Inj IV 40 mg Q8HR ALAN Administration Morphine Sulfate 2 mg 05/11/21 13:12 05/12/21 06:47 Morphine 2 Mg/1 Ml Inj IV 2 mg Q3H PRN Administration Pain , Severe (7-10) Ondansetron HCl 4 mg 05/08/21 10:00 Ondansetron 4 Mg/2 Ml Inj IV Q8H PRN Nausea And Vomiting Oxycodone/Acetaminophen 1 tab 05/08/21 10:00 Oxycodone /Acetaminophen 5-325mg Tab PO Q6H PRN Pain, Moderate (4-6) Sodium Chloride 10 ml 05/08/21 10:00 05/11/21 21:37 Sodium Chloride 0.9% 10 Ml Flush Syringe IV 10 ml BID ALAN Administration Sodium Chloride 10 ml 05/08/21 10:00 Sodium Chloride 0.9% 10 Ml Flush Syringe IV PRN PRN LINE FLUSH Nutrition/Malnutrition Assess - Dietary Evaluation Nutrition/Malnutrition Findings: Nutrition Notes Start: 05/08/21 16:45 Freq: Status: Active Protocol: Document 05/09/21 14:41 SRINIVAS (Rec: 05/09/21 14:50 SRINIVAS [id number]) Nutrition Notes Initial or Follow up Brief Note Current Diagnosis COPD,Sepsis,Hypertension, Respiratory Failure Other Pertinent Diagnosis CHF, SOB, Leukocytosis, Respiratory Acidosis, Hypokalemia. Current Diet NPO (since 05/08 09:13). Height 5 ft Weight 40.823 kg [place] Body Weight (kg) 45.45 BMI 17.5 Weight change and time frame No body weight change reported . Weight Status Underweight Subjective/Other Information RD consult for Low BMI assessment. Pt continues NPO. Pt's Low BMI seems to correspond to a natural body composition, and not related to a sudden loss of body weight nor chronic malnutrition, since none were mentioned in the Physical Assessment History or the Progress notes. Percent of energy/protein needs met: Pt currently on NPO. Nutrition Intervention Follow-Up By: 05/12/21 Additional Comments Will reassess PO intake of meals at F/U, as well as the need for ONS. When pertinent, start monitoring food tolerance, %PO intake of meals, and BM.
[2021-05-12] MEDS: CEFEPIME/NS 1 GM/100 ML 1 GM/100 ML BAG IV SCH (08:25)
[2021-05-12] MEDS: ENOXAPARIN 40 MG/0.4 ML INJ SUB-Q SCH (09:23)
[2021-05-12] MEDS: LORazepam 2 MG/ML VIAL IV PRN (13:40)
[2021-05-12] MEDS: QUEtiapine 100 MG TAB PO SCH ×2 (15:59→21:30)
[2021-05-12] MEDS: amLODIPine 10 MG TAB PO SCH (15:59)
[2021-05-12] MEDS: VALSARTAN 160MG TAB PO SCH (21:57)
[2021-05-13] MEDS: QUEtiapine 100 MG TAB PO SCH ×2 (03:01→21:12)
[2021-05-13] MEDS: MORPHINE 2 MG/1 ML INJ IV PRN ×3 (04:11→15:58)
[2021-05-13] MEDS: methylPREDNISolone Sod Succinate 40 MG/1 ML INJ IV SCH ×3 (06:21→21:12)
--- NOTE | 2021-05-13 08:17 | Progress Note ---
Assessment and Plan Assessment and plan: Patient is a 76-year-old female past medical history of congestive heart failure, COPD (on 2-3 L nasal cannula at home), hypertension who has been experiencing multiple episodes of shortness of breath complicated by hypoxia resulting in hospital admission and treatment with antibiotics before eventual discharge. The patient's daughter endorses the patient being admitted to 2 other [facility] ([facility] and [place]) for similar presentations. The patient was last discharged from the hospital on 05/03/2021 (at [facility]). According to the patient's daughter, she has been having worsening symptoms, and the patient was transported via EMS to [facility]. In the ED, the patient was found to be hypotensive (99/45), heart rate 125, respiratory rate 30, ABG 7.22/81.9/315 on 100% FiO2 (BiPAP). Patient was found to have unremarkable lactic acid and pro BNP. Patient was initiated on IV fluids, cefepime, vancomycin. Chest x-ray was suggestive of right basilar pneumonia. The patient is being admitted for severe sepsis secondary to pneumonia complicated by acute hypoxic respiratory failure. Worsening respiratory status yesterday will be transfer to imcu monitoring due to worsening respiratory status on bipap. Hospital course: 05/09: CT chest ordered demonstrated severe rt sided pna with extensive emphysema. Spoke at length with daughter who states she would like to pursue home hospice if no improvement in clinical status in next 24-48hrs. D/w pulmonary who is familiar with this patient case /family and agrees with plan as well. D/w CM re: home hospice plan. 05/10: Wean O2 as sats tolerate. Working with CM for home hospice arrangements. 05/11: Currently on [place] 8L/min. Working to wean to nasal cannula. D/w RN this AM about working to wean patient to 4-5L/min. If able to, then we will discharge patient to home. D/w patient PCP Dr. Church who will help assist with hospice arrangements outpatient. 05/12: D/w RN and pulmonary. will work to titrate salter to 6l/min. Sat of 89% is acceptable. Will work with CM tomorrow to arrange OP hospice service. #Acute on chronic hypoxic respiratory failure #Respiratory acidosis -AB.22/81.9/315 100% FiO2 - etiology: Likely infectious in the setting of possible community-acquired pneumonia. - baseline oxygen requirements: 2-3 L nasal cannula - supplemental oxygen: BiPAP, now on salter nasal cannula - Continue protocol: continue pulse oximetry, wean oxygen as tolerated, ordered incentive spirometry and educated patient on how to use it and its importance. Pulmonology consulted; IV steroids, IV antibiotic therapy, BiPAP as needed. Infectious disease consulted, IV cefepime/vanco. - 05/09 CT Chest w/o con pending #Severe sepsis #Leukocytosis Hypotension, heart rate 125, respiratory rate 30, WBC 18.7 Chest x-ray concerning for right basilar pneumonia with possible left lower lobe involvement Status post 3 L IV fluid resuscitation, vancomycin, and cefepime in the ED Continue vancomycin and cefepime. Blood cultures drawn. Urinalysis revealing hematuria but otherwise unremarkable for possible cystitis. Coronavirus PCR unremarkable. maintain map > 65 Infectious disease consulted; appreciate recs Continue to monitor #History of COPD Recently initiated on home oxygen of 2-3 L Continue scheduled DuoNebs #Hypokalemia Potassium 3.0. Repleted. Trend with daily BMP. #Social Starting of hospice was discussed with the patient and her daughter at length due to over prognosis with the patient's acute on hypoxic failure in the setting of likely end-stage COPD. The daughter expresses understanding; however, no decision has been reached regarding hospice. The pros and cons have been discussed miriam at length by 2 different physicians. The patient's daughter is very understanding and understands that hospice would provide additional resources/supplies in addition to being able to control her mother's symptoms more efficiently. Family is trying to make a decision regarding hospice overall. #Advanced care planning -Disease education conducted, care plan discussed, diagnoses discussed, prognos is discussed, and patient acknowledges understanding with care plan -Time: +30 min Disposition Plan: Continue medical management Total Time Spent with Patient (Minutes): 60 minutes History Interval history: Still on salter 8l/min. Patient was pleasant on encounter. Daughter at bedside. Plan is still for hospice. Hospitalist Physical - Physical exam Narrative exam: General appearance: Present: severe distress, cachectic - EENT Eyes: Present: PERRL, EOM intact ENT: hearing intact, clear oral mucosa - Respiratory Respiratory effort: labored, accessory muscle use Respiratory: bilateral: diminished - Cardiovascular Rhythm: regular Heart Sounds: Present: S1 & S2 - Extremities Extremities: no ischemia, pulses intact, pulses symmetrical, normal temperature, normal color Extremity abnormal: edema (1+ pitting edema) Peripheral Pulses: within normal limits - Abdominal General gastrointestinal: Present: soft, non-tender, non-distended, normal bowel sounds Female genitourinary: Present: deferred - Rectal Rectal Exam: deferred - Integumentary Integumentary: Present: clear, warm, dry - Neurologic Neurologic: CNII-XII intact - Allied Health Allied health notes reviewed: nursing - Constitutional Vitals: Temp Pulse Resp BP Pulse Ox 98.2 F 124 H 22 141/79 91 05/13/21 03:39 05/13/21 03:39 05/13/21 03:39 05/13/21 03:39 05/13/21 03:39 General appearance: Present: severe distress, cachectic HEART Score - HEART Score Troponin: Troponin T 0.023 ng/mL (0.00-0.029) 05/08/21 15:22 Results - Labs CBC & Chem 7: 05/09/21 10:25 05/09/21 10:25 Labs: Laboratory Last Values WBC 10.4 K/mm3 (4.5-11.0) 05/09/21 10:25 RBC 4.16 M/mm3 (3.65-5.03) 05/09/21 10:25 Hgb 12.4 gm/dl (10.1-14.3) 05/09/21 10:25 Hct 38.9 % (30.3-42.9) D 05/09/21 10:25 MCV 94 fl (79-97) 05/09/21 10:25 MCH 30 pg (28-32) 05/09/21 10:25 MCHC 32 % (30-34) 05/09/21 10:25 RDW 14.9 % (13.2-15.2) 05/09/21 10:25 Plt Count 223 K/mm3 (140-440) 05/09/21 10:25 Add Manual Diff Complete 05/09/21 10:25 Total Counted 100 05/09/21 10:25 Seg Neutrophils % Manager [place] 05/09/21 10:25 Seg Neuts % (Manual) 67.0 % (40.0-70.0) 05/09/21 10:25 Band Neutrophils % 25.0 % 05/09/21 10:25 Lymphocytes % (Manual) 4.0 % (13.4-35.0) L 05/09/21 10:25 Reactive Lymphs % (Man) 0 % 05/09/21 10:25 Monocytes % (Manual) 2.0 % (0.0-7.3) 05/09/21 10:25 Eosinophils % (Manual) 0 % (0.0-4.3) 05/09/21 10:25 Basophils % (Manual) 0 % (0.0-1.8) 05/09/21 10:25 Metamyelocytes % 2.0 % 05/09/21 10:25 Myelocytes % 0 % 05/09/21 10:25 Promyelocytes % 0 % 05/09/21 10:25 Blast Cells % 0 % 05/09/21 10:25 Nucleated RBC % Not Reportable 05/09/21 10:25 Seg Neutrophils # Man 7.0 K/mm3 (1.8-7.7) 05/09/21 10:25 Band Neutrophils # 2.6 K/mm3 05/09/21 10:25 Lymphocytes # (Manual) 0.4 K/mm3 (1.2-5.4) L 05/09/21 10:25 Abs React Lymphs (Man) 0.0 K/mm3 05/09/21 10:25 Monocytes # (Manual) 0.2 K/mm3 (0.0-0.8) 05/09/21 10:25 Eosinophils # (Manual) 0.0 K/mm3 (0.0-0.4) 05/09/21 10:25 Basophils # (Manual) 0.0 K/mm3 (0.0-0.1) 05/09/21 10:25 Metamyelocytes # 0.2 K/mm3 05/09/21 10:25 Myelocytes # 0.0 K/mm3 05/09/21 10:25 Promyelocytes # 0.0 K/mm3 05/09/21 10:25 Blast Cells # 0.0 K/mm3 05/09/21 10:25 WBC Morphology Not Reportable 05/09/21 10:25 Hypersegmented Neuts Not Reportable 05/09/21 10:25 Hyposegmented Neuts 1+ 05/09/21 10:25 Hypogranular Neuts Not Reportable 05/09/21 10:25 Smudge Cells Not Reportable 05/09/21 10:25 Toxic Granulation Not Reportable 05/09/21 10:25 Toxic Vacuolation Not Reportable 05/09/21 10:25 Dohle Bodies Not Reportable 05/09/21 10:25 Pelger-Huet Anomaly Not Reportable 05/09/21 10:25 Jomar Rods Not Reportable 05/09/21 10:25 Platelet Estimate Consistent w auto 05/09/21 10:25 Clumped Platelets Not Reportable 05/09/21 10:25 Plt Clumps, EDTA Not Reportable 05/09/21 10:25 Large Platelets Not Reportable 05/09/21 10:25 Giant Platelets Not Reportable 05/09/21 10:25 Platelet Satelliting Not Reportable 05/09/21 10:25 Plt Morphology Comment Not Reportable 05/09/21 10:25 RBC Morphology Not Reportable 05/09/21 10:25 Dimorphic RBCs Not Reportable 05/09/21 10:25 Polychromasia Not Reportable 05/09/21 10:25 Hypochromasia Not Reportable 05/09/21 10:25 Poikilocytosis Not Reportable 05/09/21 10:25 Anisocytosis 1+ 05/09/21 10:25 Microcytosis Not Reportable 05/09/21 10:25 Macrocytosis Not Reportable 05/09/21 10:25 Spherocytes Not Reportable 05/09/21 10:25 Pappenheimer Bodies Not Reportable 05/09/21 10:25 Sickle Cells Not Reportable 05/09/21 10:25 Target Cells Not Reportable 05/09/21 10:25 Tear Drop Cells Not Reportable 05/09/21 10:25 Ovalocytes Not Reportable 05/09/21 10:25 Helmet Cells Not Reportable 05/09/21 10:25 Cardenas-Broughton Bodies Not Reportable 05/09/21 10:25 [place] Rings Not Reportable 05/09/21 10:25 Merlin Cells Not Reportable 05/09/21 10:25 Bite Cells Not Reportable 05/09/21 10:25 Crenated Cell Not Reportable 05/09/21 10:25 Elliptocytes Not Reportable 05/09/21 10:25 Acanthocytes (Spur) Not Reportable 05/09/21 10:25 Rouleaux Not Reportable 05/09/21 10:25 Hemoglobin C Crystals Not Reportable 05/09/21 10:25 Schistocytes Not Reportable 05/09/21 10:25 Malaria parasites Not Reportable 05/09/21 10:25 Clive Bodies Not Reportable 05/09/21 10:25 Hem Pathologist Commnt No 05/09/21 10:25 PT 12.7 Sec. (12.2-14.9) 05/08/21 07:37 INR 0.87 (0.87-1.13) 05/08/21 07:37 APTT 23.0 Sec. (24.2-36.6) L 05/08/21 07:37 ABG pH 7.242 pH Units (7.350-7.450) L 05/08/21 14:25 ABG pCO2 71.6 mm Hg 05/08/21 14:25 ABG pO2 119.4 mm Hg (80.0-90.0) H 05/08/21 14:25 ABG HCO3 30.1 mmol/L (20.0-26.0) H 05/08/21 14:25 ABG O2 Saturation 97.7 % (95.0-99.0) 05/08/21 14:25 ABG O2 Content 18.9 (0.0-44) 05/08/21 14:25 ABG Base Excess 0.7 mmol/L (-2.0-3.0) 05/08/21 14:25 ABG Hemoglobin 14.1 gm/dl (12.0-16.0) 05/08/21 14:25 ABG Carboxyhemoglobin 2.4 % (0.0-5.0) 05/08/21 14:25 ABG Methemoglobin 0.7 % (0.0-1.5) 05/08/21 14:25 Oxyhemoglobin 94.7 % (95.0-99.0) L 05/08/21 14:25 FiO2 21 % 05/08/21 14:25 Sodium 142 mmol/L (137-145) 05/09/21 10:25 Potassium 3.6 mmol/L (3.6-5.0) 05/09/21 10:25 Chloride 104.9 mmol/L (98-107) 05/09/21 10:25 Carbon Dioxide 26 mmol/L (22-30) 05/09/21 10:25 Anion Gap 15 mmol/L 05/09/21 10:25 BUN 33 mg/dL (7-17) H 05/09/21 10:25 Creatinine 0.6 mg/dL (0.6-1.2) 05/09/21 10:25 Estimated GFR > 60 ml/min 05/09/21 10:25 BUN/Creatinine Ratio 55 % 05/09/21 10:25 Glucose 68 mg/dL (65-100) 05/09/21 10:25 POC Glucose 138 mg/dL (70-105) H 05/10/21 16:57 Lactic Acid 1.50 mmol/L (0.7-2.0) 05/08/21 07:37 Calcium 7.5 mg/dL (8.4-10.2) L D 05/09/21 10:25 Total Bilirubin 0.30 mg/dL (0.1-1.2) 05/08/21 07:37 Direct Bilirubin < 0.2 mg/dL (0-0.2) 05/08/21 07:37 Indirect Bilirubin 0.1 mg/dL 05/08/21 07:37 AST 17 units/L (5-40) 05/08/21 07:37 ALT 15 units/L (7-56) 05/08/21 07:37 Alkaline Phosphatase 102 units/L (35-129) 05/08/21 07:37 Troponin T 0.023 ng/mL (0.00-0.029) 05/08/21 15:22 NT-Pro-B Natriuret Pep 294.2 pg/mL (0-900) 05/08/21 07:37 Total Protein 6.9 g/dL (6.3-8.2) 05/08/21 07:37 Albumin 4.0 g/dL (3.9-5) 05/08/21 07:37 Albumin/Globulin Ratio 1.4 % 05/08/21 07:37 Procalcitonin 39.12 ng/mL (<0.15) 05/10/21 05:37 Urine Color Yellow (Yellow) 05/08/21 08:21 Urine Turbidity Clear (Clear) 05/08/21 08:21 Urine pH 5.0 (5.0-7.0) 05/08/21 08:21 Ur Specific [place] 1.030 (1.003-1.030) 05/08/21 08:21 Urine Protein 30 mg/dl mg/dL (Negative) 05/08/21 08:21 Urine Glucose (UA) Negative mg/dL (Negative) 05/08/21 08:21 Urine Ketones Negative mg/dL (Negative) 05/08/21 08:21 Urine Blood Trace (Negative) 05/08/21 08:21 Urine Nitrite Negative (Negative) 05/08/21 08:21 Ur Reducing Substances Not Reportable 05/08/21 08:21 Urine Bilirubin Negative (Negative) 05/08/21 08:21 Urine Ictotest Not Reportable 05/08/21 08:21 Urine Urobilinogen < 2.0 mg/dL (<2.0) 05/08/21 08:21 Ur Leukocyte Esterase Small (Negative) 05/08/21 08:21 Urine WBC (Auto) 3.0 /HPF (0.0-6.0) 05/08/21 08:21 Urine RBC (Auto) 44.0 /HPF (0.0-6.0) 05/08/21 08:21 U Epithel Cells (Auto) 3.0 /HPF (0-13.0) 05/08/21 08:21 Calcium Oxalate Crystal 2+ 05/08/21 08:21 Nasal Screen MRSA (PCR) Negative (Negative) 05/09/21 Unknown Coronavirus (PCR) Negative (Negative) 05/08/21 09:36 Microbiology: Microbiology 05/08/21 07:37 Peripheral/Venous Blood Culture - Final NO GROWTH AFTER 5 DAYS 05/08/21 07:37 Peripheral/Venous Blood Culture - Final NO GROWTH AFTER 5 DAYS Antonio/IV: Voiding Method External Female Catheter Active Medications - Current Medications Current Medications: Generic Name Dose Route Start Last Admin Trade Name Freq PRN Reason Stop Dose Admin Acetaminophen 650 mg 05/08/21 10:00 05/11/21 15:34 Acetaminophen 325 Mg Tab PO 650 mg Q4H PRN Administration Pain MILD(1-3)/Fever >100.5/WHITE Amlodipine Besylate 10 mg 05/12/21 16:00 05/12/21 15:59 Amlodipine 10 Mg Tab PO 10 mg QDAY ALAN Administration Dextrose 0 ml 05/09/21 12:10 05/09/21 12:29 Dextrose 10% *Hypoglycemia IV 50 ml PRN PRN Administration Hypoglycemia Protocol Enoxaparin Sodium 40 mg 05/08/21 10:00 05/12/21 09:23 Enoxaparin 40 Mg/0.4 Ml Inj SUB-Q 40 mg QDAY@1000 ALAN Administration Labetalol HCl 10 mg 05/12/21 15:45 05/12/21 15:59 Labetalol 20 Mg/4 Ml Inj IV 10 mg Q4H PRN Administration sbp>160 Lorazepam 1 mg 05/08/21 15:30 05/12/21 13:40 Lorazepam 2 Mg/Ml Vial IV 1 mg Q8H PRN Administration Agitation Methylprednisolone Sodium Succinate 40 mg 05/09/21 14:00 05/13/21 06:21 Methylprednisolone Sod Succinate 40 Mg/1 Ml Inj IV 40 mg Q8HR ALAN Administration Morphine Sulfate 2 mg 05/11/21 13:12 05/13/21 07:50 Morphine 2 Mg/1 Ml Inj IV 2 mg Q3H PRN Administration Pain , Severe (7-10) Ondansetron HCl 4 mg 05/08/21 10:00 Ondansetron 4 Mg/2 Ml Inj IV Q8H PRN Nausea And Vomiting Oxycodone/Acetaminophen 1 tab 05/08/21 10:00 Oxycodone /Acetaminophen 5-325mg Tab PO Q6H PRN Pain, Moderate (4-6) Quetiapine Fumarate 100 mg 05/12/21 12:45 05/13/21 03:01 Quetiapine 100 Mg Tab PO 100 mg QHS ALAN Administration Sodium Chloride 10 ml 05/08/21 10:00 05/12/21 21:57 Sodium Chloride 0.9% 10 Ml Flush Syringe IV 10 ml BID ALAN Administration Sodium Chloride 10 ml 05/08/21 10:00 05/12/21 23:26 Sodium Chloride 0.9% 10 Ml Flush Syringe IV 10 ml PRN PRN Administration LINE FLUSH Valsartan 160 mg 05/12/21 22:00 05/12/21 21:57 Valsartan 160mg Tab PO Not Given BID ALAN Nutrition/Malnutrition Assess - Dietary Evaluation Nutrition/Malnutrition Findings: Nutrition Notes Start: 05/08/21 16:45 Freq: Status: Active Protocol: Document 05/09/21 14:41 SRINIVAS (Rec: 05/09/21 14:50 SRINIVAS [id number]) Nutrition Notes Initial or Follow up Brief Note Current Diagnosis COPD,Sepsis,Hypertension, Respiratory Failure Other Pertinent Diagnosis CHF, SOB, Leukocytosis, Respiratory Acidosis, Hypokalemia. Current Diet NPO (since 05/08 09:13). Height 5 ft Weight 40.823 kg [place] Body Weight (kg) 45.45 BMI 17.5 Weight change and time frame No body weight change reported . Weight Status Underweight Subjective/Other Information RD consult for Low BMI assessment. Pt continues NPO. Pt's Low BMI seems to correspond to a natural body composition, and not related to a sudden loss of body weight nor chronic malnutrition, since none were mentioned in the Physical Assessment History or the Progress notes. Percent of energy/protein needs met: Pt currently on NPO. Nutrition Intervention Follow-Up By: 05/12/21 Additional Comments Will reassess PO intake of meals at F/U, as well as the need for ONS. When pertinent, start monitoring food tolerance, %PO intake of meals, and BM.
[2021-05-13] MEDS: ENOXAPARIN 40 MG/0.4 ML INJ SUB-Q SCH (10:32)
[2021-05-13] MEDS: VALSARTAN 160MG TAB PO SCH ×2 (10:32→21:12)
[2021-05-13] MEDS: amLODIPine 10 MG TAB PO SCH (10:33)
[2021-05-13] MEDS: LORazepam 2 MG/ML VIAL IV PRN ×2 (11:28→21:25)
[2021-05-13] MEDS: oxyCODONE /ACETAMINOPHEN 5-325MG TAB PO PRN (21:12)
[2021-05-14] MEDS: methylPREDNISolone Sod Succinate 40 MG/1 ML INJ IV SCH ×3 (05:31→22:26)
[2021-05-14] MEDS: VALSARTAN 160MG TAB PO SCH ×2 (09:53→22:25)
[2021-05-14] MEDS: ENOXAPARIN 40 MG/0.4 ML INJ SUB-Q SCH (09:53)
[2021-05-14] MEDS: amLODIPine 10 MG TAB PO SCH (09:53)
[2021-05-14] MEDS: QUEtiapine 100 MG TAB PO SCH ×2 (09:53→22:25)
[2021-05-14] MEDS: MORPHINE 2 MG/1 ML INJ IV PRN ×2 (09:54→17:11)
[2021-05-14] MEDS ORDERED: NON-FORMULARY EACH (Rosuvastatin Calcium [Crestor] 40 MG Tablet) PO SCH (10:00)
--- NOTE | 2021-05-14 11:04 | Progress Note ---
Assessment and Plan Cultures: 05/08/2021 blood culture: no growth MRSA nasal PCR: negative A/P: 76-year-old female with CHF, COPD, hypertension admitted from home with worsening shortness of breath over the last week to 10 days, initially she was admitted for 1 day at [facility] with pneumonia and sent home, then readmitted to [place] and was discharged home after a few days now with: #Severe sepsis, secondary to pneumonia: ?aspiration. Procalcitonin 61.1 -> 39.12. #Acute hypoxic respiratory failure: was on BiPAP. Pulmonary following. On steroids. Recs: -Completed empiric antibiotics. Isabella Zaragoza MD [facility] ([facility]) O: [phone] F: [phone] Subjective Date of service: 05/14/21 Interval history: Afebrile, normal white count. Currently on 4 L nasal cannula. Objective - Exam Narrative Exam: Physical Exam: Constitutional: awake, alert, answering questions, no distress Head, Ears, Nose: Normocephalic, atraumatic. Eyes: Conjunctivae/corneas clear. No icterus. No ptosis. Neck: Supple, no meningeal signs Cardiovascular: S1, S2 + Respiratory: AE fair b/l GI: Soft, non-tender; bowel sounds normal. No peritoneal signs Musculoskeletal: trace pedal edema, no cyanosis Skin: No rash or abscess Hem/Lymphatic: No palpable cervical or supraclavicular nodes. No lymphangitis Psych: calm, no agitation Neurological: awake, alert, oriented, answering questions - Constitutional Vitals: Vital Signs Temp Pulse Resp BP Pulse Ox 98.9 F 110 H 18 173/98 93 05/14/21 08:51 05/14/21 08:51 05/14/21 08:51 05/14/21 08:51 05/14/21 08:51 Temperature -Last 24 Hours Temperature 98.9 F Temperature 97.1 F Temperature 97.6 F Temperature 98.3 F Temperature 98.4 F - Labs CBC & Chem 7: 05/09/21 10:25 05/09/21 10:25
--- NOTE | 2021-05-14 12:46 | Discharge Summary ---
Providers - Providers Date of Admission: 05/08/21 09:10 Attending physician: EMILY CALLES MD 05/08/21 09:10 Consult to Physician [CONS] Routine Comment: Consulting Provider: LALO HUNTER Physician Instructions: Reason For Exam: Antibiotic management 05/08/21 11:06 Consult to Physician [CONS] Urgent Comment: Consulting Provider: CELESTINO GOMEZ Physician Instructions: Reason For Exam: acute RF with hypoxia + BiPAP 05/09/21 12:07 Speech Therapy Evaluation and Treat [CONS] Routine Reason For Exam: swallow eval 05/09/21 14:24 Consult to Case Management [CONS] Routine Services Needed at Discharge: Other Notified:: FERMENTING [employer]AR [employer]OPPER Comment:: home hospice 05/14/21 10:57 Speech Therapy Evaluation and Treat [CONS] Routine Reason For Exam: D/C ORDER. Written in error. Primary care physician: RC HUBER Hospitalization Reason for admission: shortness of breath, confusion Condition: Stable Hospital course: Patient is a 76-year-old female past medical history of congestive heart failure, COPD (on 2-3 L nasal cannula at home), hypertension who has been experiencing multiple episodes of shortness of breath complicated by hypoxia resulting in hospital admission and treatment with antibiotics before eventual discharge. The patient's daughter endorses the patient being admitted to 2 other [facility] hospitals ([facility] and [place]) for similar presentations. The patient was last discharged from the hospital on 05/03/2021 (at [facility]). According to the patient's daughter, she has been having worsening symptoms, and the patient was transported via EMS to [facility]. In the ED, the patient was found to be hypotensive (99/45), heart rate 125, respiratory rate 30, ABG 7.22/81.9/315 on 100% FiO2 (BiPAP). Patient was found to have unremarkable lactic acid and pro BNP. Patient was initiated on IV fluids, cefepime, vancomycin. Chest x-ray was suggestive of right basilar pneumonia. The patient is being admitted for severe sepsis secondary to pneumonia complicated by acute hypoxic respiratory failure. Worsening respiratory status yesterday will be transfer to imcu monitoring due to worsening respiratory status on bipap. Hospital course: 05/09: CT chest ordered demonstrated severe rt sided pna with extensive emphysema. Spoke at length with daughter who states she would like to pursue home hospice if no improvement in clinical status in next 24-48hrs. D/w pulmonary who is familiar with this patient case /family and agrees with plan as well. D/w CM re: home hospice plan. 05/10: Wean O2 as sats tolerate. Working with CM for home hospice arrangements. 05/11: Currently on [place] 8L/min. Working to wean to nasal cannula. D/w RN this AM about working to wean patient to 4-5L/min. If able to, then we will discharge patient to home. D/w patient PCP Dr. Huber who will help assist with hospice arrangements outpatient. 05/13: D/w RN and pulmonary. will work to titrate salter to 6l/min. Sat of 89% is acceptable. Will work with CM tomorrow to arrange OP hospice service. 05/14: Patient will be discharged pending set up for home hospice and oxygen at home. pending CM set up. #Acute on chronic hypoxic respiratory failure #Respiratory acidosis -AB.22/81.9/315 100% FiO2 - etiology: Likely infectious in the setting of possible community-acquired pneumonia. - baseline oxygen requirements: 2-3 L nasal cannula - supplemental oxygen: BiPAP, now on salter nasal cannula - Continue protocol: continue pulse oximetry, wean oxygen as tolerated, ordered incentive spirometry and educated patient on how to use it and its importance. Pulmonology consulted; IV steroids, IV antibiotic therapy, BiPAP as needed. Infectious disease consulted, IV cefepime/vanco. - 05/09 CT Chest w/o con pending #Severe sepsis #Leukocytosis Hypotension, heart rate 125, respiratory rate 30, WBC 18.7 Chest x-ray concerning for right basilar pneumonia with possible left lower lobe involvement Status post 3 L IV fluid resuscitation, vancomycin, and cefepime in the ED Continue vancomycin and cefepime. Blood cultures drawn. Urinalysis revealing hematuria but otherwise unremarkable for possible cystitis. Coronavirus PCR unremarkable. maintain map > 65 Infectious disease consulted; appreciate recs Continue to monitor #History of COPD Recently initiated on home oxygen of 2-3 L Continue scheduled DuoNebs #Hypokalemia Potassium 3.0. Repleted. Trend with daily BMP. #Social Starting of hospice was discussed with the patient and her daughter at length due to over prognosis with the patient's acute on hypoxic failure in the setting of likely end-stage COPD. The daughter expresses understanding; however, no decision has been reached regarding hospice. The pros and cons have been discussed miriam at length by 2 different physicians. The patient's daughter is very understanding and understands that hospice would provide additional resources/supplies in addition to being able to control her mother's symptoms more efficiently. Family is trying to make a decision regarding hospice overall. #Advanced care planning -Disease education conducted, care plan discussed, diagnoses discussed, prognosis discussed, and patient acknowledges understanding with care plan -Time: +30 min Disposition: 51 HOSPICE/MEDICAL FACILITY Final Discharge Diagnosis (Prints w/discharge instructions): End stage COPD, chronic hypoxic respiratory failure Time spent for discharge: 35 Core Measure Documentation - Palliative Care Palliative Care/ Comfort Measures: Hospice Care - Core Measures Any of the following diagnoses?: none Exam - Physical Exam Narrative exam: General appearance: Present: severe distress, cachectic - EENT Eyes: Present: PERRL, EOM intact ENT: hearing intact, clear oral mucosa - Respiratory Respiratory effort: labored, accessory muscle use Respiratory: bilateral: diminished - Cardiovascular Rhythm: regular Heart Sounds: Present: S1 & S2 - Extremities Extremities: no ischemia, pulses intact, pulses symmetrical, normal temperature, normal color Extremity abnormal: edema (1+ pitting edema) Peripheral Pulses: within normal limits - Abdominal General gastrointestinal: Present: soft, non-tender, non-distended, normal bowel sounds Female genitourinary: Present: deferred - Rectal Rectal Exam: deferred - Integumentary Integumentary: Present: clear, warm, dry - Neurologic Neurologic: CNII-XII intact - Allied Health Allied health notes reviewed: nursing - Constitutional Vitals: Temp Pulse Resp BP Pulse Ox 98.9 F 110 H 18 173/98 96 05/14/21 08:51 05/14/21 08:51 05/14/21 08:51 05/14/21 08:51 05/14/21 12:01 Plan Follow up with: RC HUBER MD [Primary Care Provider] - 7 Days Prescriptions: amLODIPine 10 mg PO QDAY 30 Days #30 tablet LORazepam [Ativan] 1 mg PO TID PRN 3 Days #9 tablet PRN Reason: Anxiety Valsartan [Diovan] 160 mg PO BID 30 Days #60 tablet QUEtiapine [SEROquel] 100 mg PO BID 30 Days #60 tablet
[2021-05-14] MEDS: LORazepam 2 MG/ML VIAL IV PRN ×2 (13:13→20:16)
[2021-05-15] MEDS: MORPHINE 2 MG/1 ML INJ IV PRN ×2 (00:15→06:05)
[2021-05-15] MEDS: methylPREDNISolone Sod Succinate 40 MG/1 ML INJ IV SCH (06:05)
[2021-05-15] MEDS: QUEtiapine 100 MG TAB PO SCH (09:12)
[2021-05-15] MEDS: oxyCODONE /ACETAMINOPHEN 5-325MG TAB PO PRN (09:12)
[2021-05-15] MEDS: amLODIPine 10 MG TAB PO SCH (09:12)
[2021-05-15] MEDS: VALSARTAN 160MG TAB PO SCH (09:12)
[2021-05-15] MEDS: ENOXAPARIN 40 MG/0.4 ML INJ SUB-Q SCH (09:12)
[2021-05-15] MEDS: LORazepam 2 MG/ML VIAL IV PRN (09:21)
--- NOTE | 2021-05-15 09:53 | Event Note ---
Date: 05/15/21 Patient had a discharge order that was executed yesterday but could not be finalized because of logistics with DME. Patient was to discharge home pending set up for home hospice and oxygen at home. Also, transportation apparently was an issue as well. I discussed with the daughter at the bedside and arrangements have been made and patient will discharge today at 11:[address] Kirkland's discharge summary for details. Total visit time equals 35 minutes with greater than 50% spent on coordination of care and counseling.
--- NOTE | 2021-05-15 11:23 | Progress Note ---
Assessment and Plan Cultures: 05/08/2021 blood culture: no growth MRSA nasal PCR: negative A/P: 76-year-old female with CHF, COPD, hypertension admitted from home with worsening shortness of breath over the last week to 10 days, initially she was admitted for 1 day at [facility] with pneumonia and sent home, then readmitted to [place] and was discharged home after a few days now with: #Severe sepsis, secondary to pneumonia: ?aspiration. Procalcitonin 61.1 -> 39.12. #Acute hypoxic respiratory failure: was on BiPAP. Pulmonary following. On steroids. Recs: -Completed empiric antibiotics. Isabella Zaragoza MD [facility] ([facility]) O: [phone] F: [phone] Subjective Date of service: 05/15/21 Interval history: Afebrile, no acute change. Objective - Exam Narrative Exam: Physical Exam: Constitutional: awake, alert, answering questions, no distress Head, Ears, Nose: Normocephalic, atraumatic. Eyes: Conjunctivae/corneas clear. No icterus. No ptosis. Neck: Supple, no meningeal signs Cardiovascular: S1, S2 + Respiratory: AE fair b/l GI: Soft, non-tender; bowel sounds normal. No peritoneal signs Musculoskeletal: trace pedal edema, no cyanosis Skin: No rash or abscess Hem/Lymphatic: No palpable cervical or supraclavicular nodes. No lymphangitis Psych: calm, no agitation Neurological: awake, alert, oriented, answering questions - Constitutional Vitals: Vital Signs Temp Pulse Resp BP Pulse Ox 98.2 F 106 H 16 167/97 88 05/15/21 08:35 05/15/21 08:35 05/15/21 08:35 05/15/21 08:35 05/15/21 09:23 Temperature -Last 24 Hours Temperature 98.2 F Temperature 96.8 F Temperature 98.0 F Temperature 98.9 F Temperature 98.9 F - Labs CBC & Chem 7: 05/09/21 10:25 05/09/21 10:25
[2021-05-15 11:27] VITALS: BP 139/79
== END 2021-05-15 11:30 | disposition hospice, home (50) | DRG 871 ==
LOC: ED 07:05 → INTOOBSV 09:10 → OBSVTOIN 09:10 → 4A 09:10
PROVIDERS: ADMIT Student in an Organized Health Care Education/Training Program; ATTEND Hospitalist
PROC: 5A09457 Assistance with Respiratory Ventilation, 24-96 Consecutive Hours, Continuous Positive Airway Pressure (ICD-10-PCS; 2021-05-08)
PROC: 4A033R1 Measurement of Arterial Saturation, Peripheral, Percutaneous Approach (ICD-10-PCS; 2021-05-08)
PROC: 5A09357 Assistance with Respiratory Ventilation, Less than 24 Consecutive Hours, Continuous Positive Airway Pressure (ICD-10-PCS; principal; 2021-05-11)
DX: A41.9 Sepsis, unspecified organism (principal); J18.9 Pneumonia, unspecified organism; J96.21 Acute and chronic respiratory failure with hypoxia; R65.20 Severe sepsis without septic shock; E87.6 Hypokalemia; I11.0 Hypertensive heart disease with heart failure; I50.9 Heart failure, unspecified; M19.90 Unspecified osteoarthritis, unspecified site; J43.9 Emphysema, unspecified; K21.9 Gastro-esophageal reflux disease without esophagitis; Z79.82 Long term (current) use of aspirin; Z91.048 Other nonmedicinal substance allergy status; F17.200 Nicotine dependence, unspecified, uncomplicated; Z20.822 Contact with and (suspected) exposure to COVID-19; Z85.3 Personal history of malignant neoplasm of breast; Z86.73 Personal history of transient ischemic attack (TIA), and cerebral infarction without residual deficits; Z82.49 Family history of ischemic heart disease and other diseases of the circulatory system
CPT/HCPCS: 36415; 36600; 71045; 71250; 74230; 80048; 80076; 81001; 82140; 82803; 82962; 83880; 84145; 84484; 85007; 85025; 85610; 85730; 87040; 87086; 87641; 93005; 94660; 94760; G0378; J3490; Q0162; J0692; J1100; J1650; J1940; J2060; J2270; J2405; J2920; J3370; J3480; J7030; J7050; J7120; U0003